=== PATIENT | male | born 1955 | race Caucasian/White ===

== ENCOUNTER → 2017-03-19 | Outpatient (CLI) | payer BC ==
[~2017-03-19] MED LIST: ATOR-22 PO; DLCSR120 PO; LISI-786 PO
[2017-03-19 12:46] LABS: ESTIMATED AVERAGE GLUCOSE 126 mg/dl; HA1C FLAG Normal (Normal)
[2017-03-19 12:51] LABS: ALT/SGPT 38 U/L (12-78); AST/SGOT 20 U/L (15-37); BLOOD UREA NITROGEN 20 mg/dl (7-18); BUN/CREATININE RATIO 24.4 (10-20); CALCIUM 9.4 mg/dl (8.5-10.1); CARBON DIOXIDE 23 mmol/L (21-32); CHLORIDE 110 mmol/L (98-107); GLUCOSE 107 mg/dl (70-99); MAGNESIUM 2.4 mg/dl (1.8-2.4); SODIUM 139 mmol/L (136-145)
[2017-03-19 13:02] LABS: ALKALINE PHOSPHATASE 50 U/L (45-117); PROSTATE SPECIFIC ANTIGEN 0.851 ng/ml (0.000-4.000)
== END | disposition home or self-care (01) ==
LOC: C.LABBFT 08:04
PROVIDERS: ATTEND Internal Medicine Cardiovascular Disease
DX: I10 Essential (primary) hypertension (principal); N40.0 Benign prostatic hyperplasia without lower urinary tract symptoms; R73.01 Impaired fasting glucose; E78.00 Pure hypercholesterolemia, unspecified; E78.5 Hyperlipidemia, unspecified

== ENCOUNTER 2020-03-17 01:38 | Inpatient (IN) ==
[2020-03-17] MEDS ORDERED: ASPIRIN CHEW 324 MG ONE (01:48)
[2020-03-17 02:28] LABS: Basophils # (auto) 0.03 K/uL (0-0.2); Basophils % (auto) 0.6 %; Eosinophils # (auto) 0.15 K/uL (0-0.5); Eosinophils % (auto) 2.8 %; Hematocrit (blood only) 41.6 % (42-52); Hemoglobin 13.9 g/dL (14.0-18.0); Immature Granulocytes # (auto) 0.01 K/uL (0.00-0.02); Immature Granulocytes % (auto) 0.2 %; Lymphocytes # (auto) 1.74 K/uL (1.2-3.4); Lymphocytes % (auto) 32.8 %; Mean Corpuscular Hgb Conc 33.4 g/dL (32-36); Mean Corpuscular Volume 89.8 fL (80-100); Mean Platelet Volume 9.6 fL (7.4-10.4); Monocytes # (auto) 0.64 K/uL (0.11-0.59); Monocytes % (auto) 12.1 %; Neutrophils # (auto) 2.74 K/uL (1.4-6.5); Neutrophils % (auto) 51.5 %; Platelet Count 165 K/uL (130-400); RDW Standard Deviation 45.8 fL (36.4-46.3); Red Blood Count 4.63 M/uL (4.7-6.1); White Blood Count 5.31 K/uL (4.8-10.8)
[2020-03-17 02:38] LABS: Partial Thromboplastin Time 26.9 Seconds (21.0-31.0); Prothrombin Time 10.9 Seconds (9.0-12.0)
[2020-03-17 02:47] LABS: Alanine Aminotransferase 44 U/L (12-78); Albumin Level 3.2 gm/dl (3.4-5.0); Aspartate Aminotransferase 32 U/L (15-37); BUN Creatinine Ratio 19.2 (10-20); Blood Urea Nitrogen 18 mg/dl (7-18); Calcium 8.4 mg/dl (8.5-10.1); Carbon Dioxide 24 mmol/L (21-32); Chloride 111 mmol/L (98-107); Creatinine Clr Calc Pharmacy 90.5 ml/min; Est GFR (African American) 98.8; Est GFR (Non-African American) 85.2; Glucose 203 mg/dl (70-99); Lipase 131 U/L (73-393); Potassium 3.4 mmol/L (3.5-5.1); Sodium 142 mmol/L (136-145)
[2020-03-17 02:59] LABS: Albumin Globulin Ratio 0.9 (0.9-2); Alkaline Phosphatase 57 U/L (45-117); Bilirubin,Total 0.7 mg/dl (0.2-1); Creatine Kinase MB 15.6 ng/ml (0.5-3.6); Globulin 3.7 gm/dl (2.5-4.0); Total Protein 6.9 gm/dl (6.4-8.2); Troponin I 0.969 ng/ml (0-0.045)
[2020-03-17] MEDS ORDERED: HEPARIN SOD 5,000 UNIT/0.5 ML VIAL ONE (03:31)
--- NOTE | 2020-03-17 03:39 | Emergency Department Note ---
History of Present Illness General Chief Complaint: Cardiac Assessment Stated Complaint: CHEST PAIN Time Seen by Provider: 03/17/20 01:50 Source: patient Mode of arrival: EMS Limitations: no limitations History of Present Illness Provider Complaint: chest pain Onset (ago): hour(s) 2 Time: 00:00 Duration: improved Onset: during exertion Pain Location: left chest Pain Radiation: LUE Severity: moderate Maximum Pain Intensity: 2 Current Pain Intensity: 2 Quality: + heaviness Relieved By: + nitroglycerin Exacerbated By: + exertion Treatments prior to arrival: aspirin and nitroglycerin 64-year-old male patient with significant past medical history of CAD s/p CABG 2 years ago ([facility]), HTN, melanoma, and macular degeneration presents to the emergency department today via ambulance for evaluation of chest pain. Patient states 2 hours prior to arrival, he was experiencing some chest tightness and heaviness. The pain was radiating into and down his left arm. The patient states he has been experiencing intermittent pain similar nature to this for the past several months, primarily with exertion and improves with rest. Patient states more recently, he is noticing that walking down the street to his son's house flares up the symptoms. He states he used to be able to walk 1 to 2 miles without any difficulty, but more recently has been unable to do this. The patient states this evening, he was watching TV and feeling fine. He got up to wash the dishes and during this exertion, began experiencing chest pressure and tightness radiating into his left arm. He tried going to bed, but the symptoms did not improve, prompting him to contact EMS. Patient denies any history of AZ, but was experiencing some pain and noted blockages 2-1/2 years ago leading to his CABG. He does follow with cardiology, Dr. Waller, but has not seen him in almost a year. The patient reports family history of AZ in his father who at 44 years old. He states he has 3 paternal uncles all had MIs in their 60s. The patient is uncertain of his mother's family history. The patient denies any tobacco use. He was given 3 doses of nitroglycerin and 324 mg aspirin by EMS prior to arrival and states his symptoms have almost completely resolved at this time. He denies any associated diaphoresis or dyspnea. There was no abdominal pain, nausea, vomiting. Home Medications Home Medications Medication Instructions Recorded Confirmed Type aspirin 81 mg chewable tablet 1 tab PO DAILY tab 04/13/19 03/17/20 History nitroglycerin 0.4 mg sublingual 0.4 mg SL Q5M PRN #30 tab 04/13/19 03/17/20 History tablet vitamins A,C,O-lhjb-ogsbab 14,320 1 cap PO BID 04/13/19 03/17/20 History unit-226 mg-200 unit capsule lisinopril 20 1 tab PO DAILY #90 tab 04/22/19 03/17/20 Rx mg-hydrochlorothiazide 12.5 mg tablet metoprolol succinate 50 mg 50 mg PO DAILY #90 tab 09/12/19 03/17/20 Rx tablet,extended release 24 hr atorvastatin 80 mg tablet 80 mg PO DAILY #90 tab 03/13/20 03/17/20 Rx Allergies Allergy/AdvReac Type Severity Reaction Status Date / Time No Known Allergies Allergy Verified 03/17/20 02:27 Past Med/Surg History Medical History Abnormal liver function test Atypical chest pain Enlarged prostate without lower urinary tract symptoms (luts) Hx of sciatica Surgical History (Updated 03/17/20 @ 05:09 by Shital Fenton PA-C) History of foot surgery bilateral History of herniorrhaphy "Bilateral" 1972 Hx of tonsillectomy Family History (Updated 11/18/19 @ 15:33 by Dennise Nunes) Father Acute myocardial infarction at age 44 Mother Coronary heart disease Diabetes Brother Hypertension Social History Smoking Status: Never smoker Hx Alcohol Use: No Hx Substance Use: No Preferred Language: Prydeinig Communication Ability: Effective Sample Room Supervisor Required: No Beliefs That Will Affect Care: None marital status: Current Living Situation: Spouse Other Information That Helps Us Care for You: No Feels Safe at Home: Yes Safety Concerns: Feels Safe At This Time Review of Systems A total of 10 systems reviewed and were otherwise negative Physical Exam Vital Signs Vital Signs - 24 hr 03/17/20 01:44 03/17/20 01:53 03/17/20 02:10 Temperature 36.8 C Temperature Source Oral Pulse Rate 85 Pulse Rate [Apical] Pulse Rhythm Regular Pulse Rhythm [Apical] Pulse Strength [Apical] Respiratory Rate 20 Respiratory Effort / Characteristics Non-Labored Respiratory Depth Normal Respiratory Pattern Blood Pressure 172/83 H Blood Pressure [Right Arm] Blood Pressure Mean 112 Blood Pressure Mean [Right Arm] Blood Pressure Position [Right Arm] Pulse Oximetry 93 93 92 Oxygen Delivery Method Room Air Room Air Room Air Sepsis Recent Fever Within 48 Hours No Sepsis New/Unexplained Change in Mental Status No Sepsis Action Taken by Nursing No Action Required 03/17/20 02:12 03/17/20 02:13 03/17/20 02:19 Temperature Temperature Source Pulse Rate Pulse Rate [Apical] 79 Pulse Rhythm Pulse Rhythm [Apical] Regular Pulse Strength [Apical] Respiratory Rate 18 Respiratory Effort / Characteristics Non-Labored Spontaneous Respiratory Depth Normal Respiratory Pattern Agonal Blood Pressure Blood Pressure [Right Arm] 167/97 H Blood Pressure Mean Blood Pressure Mean [Right Arm] 120 Blood Pressure Position [Right Arm] Sitting Pulse Oximetry 93 93 96 Oxygen Delivery Method Room Air Room Air Room Air Sepsis Recent Fever Within 48 Hours Sepsis New/Unexplained Change in Mental Status Sepsis Action Taken by Nursing 03/17/20 03:23 Temperature Temperature Source Pulse Rate Pulse Rate [Apical] 79 Pulse Rhythm Pulse Rhythm [Apical] Regular Pulse Strength [Apical] Normal Respiratory Rate 18 Respiratory Effort / Characteristics Non-Labored Spontaneous Respiratory Depth Normal Respiratory Pattern Regular Blood Pressure Blood Pressure [Right Arm] 135/61 Blood Pressure Mean Blood Pressure Mean [Right Arm] 85 Blood Pressure Position [Right Arm] Sitting Pulse Oximetry 94 Oxygen Delivery Method Room Air Sepsis Recent Fever Within 48 Hours Sepsis New/Unexplained Change in Mental Status Sepsis Action Taken by Nursing VITALS: Vitals are noted on the nurse's note and reviewed by myself. Patient is hypertensive. No tachycardia, tachypnea, hypoxia. The patient is afebrile. GENERAL: This is a 64-year-old white male, in no acute distress, nondiaphoretic, well-developed well-nourished. SKIN: The skin was without rashes, erythema, edema, or bruising. There is no tenting of the skin. Capillary refill less than 2 seconds. HEAD: Normocephalic atraumatic. EYES: Conjunctivae without injection, sclerae without icterus. NECK: Supple without nuchal rigidity. No lymphadenopathy. No thyromegaly. Cervical spine is nontender. No JVD. HEART: Regular rate and rhythm without murmurs gallops or rubs. LUNGS: Clear to auscultation bilaterally without wheezes, rales or rhonchi. No retractions or accessory muscle use. ABDOMEN: Positive bowel sounds x 4. Normal tympanic percussion. Soft, non tender, without masses or organomegaly. No guarding or rebound tenderness. MUSCULOSKELETAL: No muscle atrophy, erythema, or edema noted. Full range of motion without joint tenderness in all extremities. No tenderness to palpation. Normal gait. Strength 5/5 throughout. NEURO: Patient was alert and oriented to person place and time. Normal sensation to light and sharp touch. No focal neurological deficits. Course Course The patient was seen and evaluated as above. An order was placed for continuous cardiac monitoring. The monitor shows a normal sinus rhythm at a rate of 83 bpm. IV access obtained, labs drawn. Imaging performed and reviewed by myself as noted. Labs reviewed by myself. I discussed the findings with the patient at bedside. I discussed the case with my attending. She did see and evaluate the patient. Patient started on heparin drip with bolus. I discussed case with the crew manager. I discussed the case with Dr. Hutchinson, resident on [facility] service. She did see and evaluate the patient. Administered Medications Heparin Sodium/Dextrose (Heparin Sodium/Dextrose) 25,000 units in 500 mls @ 29 mls/hr IV .[id number] [facility]; Protocol Stop: 04/16/20 03:14 Last Admin: 03/17/20 03:43 Dose: 1,450 units/hr, 29 mls/hr Documented by: [id number] Cosigned by: [id number] Discontinued Medications Heparin Sodium (Porcine) (Heparin Sod 5,000 Unit/0.5 Ml Vial) Confirm Administered Dose 5,000 units .ROUTE .STK-MED ONE Stop: 03/17/20 03:32 Last Admin: 03/17/20 03:42 Dose: 5,000 units Documented by: [id number] Cosigned by: [id number] Heparin Sodium/Dextrose (Heparin Iv Standard With Bolus) 1 ea IV NOW STA; Protocol Stop: 03/17/20 03:12 Last Admin: 03/17/20 03:51 Dose: Not Given Documented by: [id number] Potassium Chloride (Potassium Chloride 10 Meq Tabcr) 10 meq PO NOW STA Stop: 03/17/20 04:17 Last Admin: 03/17/20 04:27 Dose: 10 meq Documented by: [id number] Medical Decision Making Differential Diagnosis + pneumothorax, + stable angina, + unstable angina pectoris, + atypical chest pain, + st elevation myocardial infarction, + costochondritis, + chest pain, + biliary colic, + cardiac ischemia, + myocarditis, + pericarditis, + pleurisy, + aortic dissection, + pulmonary embolism, + pneumonia, + musculoskeletal, + infections, + cholecystitis, + pancreatitis and + esophageal rupture Medical Records Attestation: I reviewed the patient's medical records. Home Medications Current Medication List: was personally reviewed by me Laboratory Data Attestation: I reviewed the patient's lab results. Lab results narrative: No leukocytosis, anemia, thrombocytopenia. Renal, hepatic function, and electrolytes without significant abnormality. Coags normal. Troponin elevated 0.969. CK-MB elevated 15.6. Lipase 131. Glucose elevated at 203. Result diagrams: 03/17/20 02:18 03/17/20 02:18 Labs: Lab Results 03/17/20 03/17/20 03/17/20 Range/Units 02:18 02:18 02:18 WBC 5.31 (4.8-10.8) K/uL RBC 4.63 L (4.7-6.1) M/uL Hgb 13.9 L (14.0-18.0) g/dL Hct 41.6 L (42-52) % MCV 89.8 (80-100) fL MCH 30.0 (25-34) pg MCHC 33.4 (32-36) g/dL RDW Std Deviation 45.8 (36.4-46.3) fL RDW Coeff of Meghan 14.0 (11.5-14.5) % Plt Count 165 (130-400) K/uL MPV 9.6 (7.4-10.4) fL Immature Gran % (Auto) 0.2 % Neut % (Auto) 51.5 % Lymph % (Auto) 32.8 % [place] % (Auto) 12.1 % Eos % (Auto) 2.8 % Baso % (Auto) 0.6 % Neut # (Auto) 2.74 (1.4-6.5) K/uL Lymph # (Auto) 1.74 (1.2-3.4) K/uL [place] # (Auto) 0.64 H (0.11-0.59) K/uL Eos # (Auto) 0.15 (0-0.5) K/uL Baso # (Auto) 0.03 (0-0.2) K/uL Immature Gran # (Auto) 0.01 (0.00-0.02) K/uL PT 10.9 (9.0-12.0) Seconds INR 1.0 (0.9-1.1) APTT 26.9 (21.0-31.0) Seconds PTT Ratio 1.0 Sodium 142 (136-145) mmol/L Potassium 3.4 L (3.5-5.1) mmol/L Chloride 111 H (98-107) mmol/L Carbon Dioxide 24 (21-32) mmol/L Anion Gap 7.0 (3-11) BUN 18 (7-18) mg/dl Creatinine 0.93 (0.6-1.4) mg/dl Est Cr Clr Drug Dosing 90.5 ml/min Est GFR ( Amer) 98.8 Est GFR (Non-Af Amer) 85.2 BUN/Creatinine Ratio 19.2 (10-20) Glucose 203 H (70-99) mg/dl Calcium 8.4 L (8.5-10.1) mg/dl Total Bilirubin 0.7 (0.2-1) mg/dl AST 32 (15-37) U/L ALT 44 (12-78) U/L Alkaline Phosphatase 57 (45-117) U/L CK-MB (CK-2) 15.6 H (0.5-3.6) ng/ml Troponin I 0.969 H* (0-0.045) ng/ml Total Protein 6.9 (6.4-8.2) gm/dl Albumin 3.2 L (3.4-5.0) gm/dl Globulin 3.7 (2.5-4.0) gm/dl Albumin/Globulin Ratio 0.9 (0.9-2) Lipase 131 (73-393) U/L Imaging Data Chest x-ray: Attestation: I personally reviewed and interpreted this imaging study as follows: My impression: Chest x-ray. Findings: A chest x-ray was performed and revealed no pneumothorax, effusion, infiltrate, pulmonary edema, free air under the diaphragm, or wide mediastinum. Sternotomy wires noted. ECG Data Attestation: I personally reviewed and interpreted this ECG as follows: Indication: chest pain Rate (beats per minute): 85 Rhythm: normal sinus Findings: + ST depression (Lateral); no T-wave inversion, no ST elevation and no ectopy Comparison ECG Date: no prior available Blood Pressure Blood Pressure Findings: Elevated blood pressure Blood Pressure Disposition: further management by hospitalist MDM Narrative This 64-year-old male patient with history of CAD s/p CABG presents the emergenc y department today for evaluation of chest pain. The pain began approximately 2 hours prior to arrival. He was given nitro spray x3 and 324 mg aspirin prior to arrival by EMS. The patient's pain had completely resolved upon arrival to the emergency department. Patient has been experiencing exertional chest pain for the past several months. He does follow with Dr. Waller locally. He has not spo ella with Dr. Waller regarding the exertional chest pain. Work-up here in the ED consistent with NSTEMI. Patient does have an elevated troponin as well as CK- MB. EKG with some ST depression consistent with ischemia in the lateral leads. The patient was medicated here in the ED with heparin. He will be admitted to the hospitalist service for ongoing management and care. Please see hospitalist dictation regarding ongoing management of this patient. The chart was completed utilizing [employer] Speech voice recognition software. Grammatical errors, random word insertions, pronoun errors, and incomplete sentences are an occasional consequence of this system due to software limitations, ambient noise, and hardware issues. Any formal questions or concerns about the content, text, or information contained within the body of this dictation should be directly addressed to the provider for clarification. Impression & Plan NSTEMI (non-ST elevated myocardial infarction), CAD (coronary artery disease), S/P CABG (coronary artery bypass graft), Chest pain Discharge Plan Visit Data Chief Complaint: Cardiac Assessment Stated Complaint: CHEST PAIN ED Provider: Marylin Gonzalez ED Midlevel Provider: Shital Fenton Discharge Problem: NSTEMI (non-ST elevated myocardial infarction), CAD (coronary artery disease), S/P CABG (coronary artery bypass graft), Chest pain Patient Disposition: Admitted As Inpatient Discharge Instructions Interventions: ED Discharge Assessment Last Done: 03/17/20 04:31
[2020-03-17] MEDS: HEPARIN SODIUM/DEXTROSE 25,000 UNITS/500 ML BAG IV SCH ×2 (03:43→23:45)
--- NOTE | 2020-03-17 03:51 | History & Physical Report ---
Date of Service March 17, 2020 Assessment & Plan (1) NSTEMI (non-ST elevated myocardial infarction): Mr. Feliz is a 64yo with a PMHx significant for CAD s/p CABG done at [facility] 2 years ago, HTN, melanoma and macular degeneration who was admitted with chest pain and elevated troponins. Atypical chest pain/NSTEMI -Pt describes a Hx of angina for the past few months -However, tonight chest pain would not resolve even with rest -EKG with evidence of ischemia in lateral leads -Troponins elevated to 0.969; will trend q6h -lipid panel, hgbA1c pending -Received 3 nitro sprays en route with pain down from 6 to 0 currently; continue Nitro-Bid 0.5 inches q6h scheduled -morphine IV 2mg q3h PRN for additional pain -received aspirin 324mg en route; continue aspirin 81mg daily -continue heparin drip -continue home metoprolol succinate 50mg -hold home lisinopril-HCTZ combo; continue with lisinopril 20mg daily -continue home atorvastatin 80mg -consult Cardiology -NPO Hypokalemia -replete as needed -holding HCTZ as above CAD -Hx of CABG in 2018 at [facility] after stress test showed blockages in 3 vessels -Follows with Dr. Waller of [facility] Cardiology -continue home metoprolol succinate 50mg, atorvastatin 80mg, aspirin 81m, and lisinopril 20mg here. HTN -hold home combo lisinopril-HCTZ -continue lisinopril 20mg with beta deon above (metoprolol succinate 50mg) Hx of melanoma -Pt with Hx of melanoma on his back -completely removed -follows with [facility] in the area Hx of macular degeneration -stable FEN/GI: NPO except essential meds in anticipation of cath procedure DVT prophylaxis: on heparin drip CODE STATUS: Full code, discussed with pt and Dispo: PCU/Tele DVT History of Present Illness Primary Care Provider: Yanira Martell MD Mr. Feliz is a 64yo with a PMHx significant for CAD s/p CABG done at [facility] 2 years ago, HTN, melanoma and macular degeneration who was admitted with chest pain and elevated troponins. Pt states that about midnight he was up doing dishes (admits he is retired so his schedule is a bit off) when he had the onset of 6/10 chest discomfort that radiated down his arms bilaterally. No associated SOB, N/V, or diaphoresis. He had been having similar symptoms during the day but they went away with rest. However, this time, he decided to go to bed hoping that would help with relieving the pain. However the pain persisted and he asked his to call [address] he received nitro sprays and aspirin which helped bring his pain down from a 6 to a 0 currently. He states that he has a Hx of CABG in 2018 at [facility] after he was having similar symptoms and his decorative engraver apprentice Dr. Waller sent him for a stress echo. The results of that sent him to [place] for a cath where it was discovered that he had blockages in 3 vessels requiring CABG. States he has never smoked, rarely uses alcohol. His father of an GA at age 44 and his uncles all had MIs later in their life as well. States his diet is not the best. admits that before custodial she rarely cooked and they mostly ate out. He has stopped exercising or walking since he started having anginal symptoms once more. States that while out for walks he would note tachycardia to 80s-90s on his apple watch, sometimes associated with the chest discomfort. EMS course: 3 nitro sprays, aspirin 324mg given. ED course: Heparin started Allergies Allergy/AdvReac Type Severity Reaction Status Date / Time No Known Allergies Allergy Verified 03/17/20 02:27 Home Medications Home Medications Medication Instructions Recorded Confirmed Type aspirin 81 mg chewable tablet 1 tab PO DAILY tab 04/13/19 03/17/20 History nitroglycerin 0.4 mg sublingual 0.4 mg SL Q5M PRN #30 tab 04/13/19 03/17/20 History tablet vitamins A,C,M-spkc-zfznke 14,320 1 cap PO BID 04/13/19 03/17/20 History unit-226 mg-200 unit capsule lisinopril 20 1 tab PO DAILY #90 tab 04/22/19 03/17/20 Rx mg-hydrochlorothiazide 12.5 mg tablet metoprolol succinate 50 mg 50 mg PO DAILY #90 tab 09/12/19 03/17/20 Rx tablet,extended release 24 hr atorvastatin 80 mg tablet 80 mg PO DAILY #90 tab 03/13/20 03/17/20 Rx Past Med/Surg History Medical History Abnormal liver function test Atypical chest pain CAD (coronary artery disease) Enlarged prostate without lower urinary tract symptoms (luts) Hx of sciatica Hypercholesterolemia Hypertension Osteoarthritis Surgical History (Updated 03/17/20 @ 13:54 by Abdoul Mcarthur MD) History of foot surgery bilateral History of herniorrhaphy "Bilateral" 1971 Hx of tonsillectomy S/P CABG (coronary artery bypass graft) 3 vessel Family History (Updated 11/18/19 @ 15:33 by Dennise Nunes) Father Acute myocardial infarction at age 44 Mother Coronary heart disease Diabetes Brother Hypertension Social History Smoking Status: Never smoker Hx Alcohol Use: No Hx Substance Use: No Preferred Language: Cameroonian Communication Ability: Effective Publication Distributor Required: No Beliefs That Will Affect Care: None marital status: Current Living Situation: Spouse Other Information That Helps Us Care for You: No Feels Safe at Home: Yes Safety Concerns: Feels Safe At This Time Review of Systems Constitutional: no fever, no chills and no sweats Eyes: no worsening vision Ear, Nose, Mouth, Throat: no nasal discharge and no sore throat Respiratory: no cough and no dyspnea Cardiovascular: + chest pain, + chest pain with activity and + radiating jaw, neck or arm pain; no palpitations, no edema and no calf pain Gastrointestinal: no abdominal pain, no nausea, no vomiting, no constipation, no diarrhea/loose stools and no blood in stools Musculoskeletal: no body aches Integumentary: no rash Neurologic: no tingling, no numbness, no headache(s) and no confusion Psychiatric: no confusion Physical Exam Physical Exam: General: Alert, oriented. No acute distress, laying in bed. Obese gentleman. Skin: Noted surgical scar on left shoulder Psych: Appropriate mood and affect Neuro: No gross deficits HEENT: NC/AT Chest: Nontender to palpation. CV: RRR, Normal s1, s2. No murmurs appreciated Resp: Breath sounds clear bilaterally, no increased effort of breathing. No crackles/rhonchi/rales. Abdomen: Soft, nontender, nondistended. No guarding. No organomegaly appreciated. Extremities: No edema in lower extremities bilaterally. Results & Data Results & Data ([facility]) Vital Signs (Past 12 Hours) Vital Signs Temp Pulse Pulse Resp BP BP Pulse Ox 03/17/20 03:23 79 18 135/61 94 03/17/20 02:19 79 18 167/97 H 96 03/17/20 02:13 93 03/17/20 02:12 93 03/17/20 02:10 92 03/17/20 01:53 93 03/17/20 01:44 36.8 C 85 20 172/83 H 93 Supervising Physician Co-Signing Physician Notes Attending addendum: I have physically seen this patient, have supervised the medical residents activities, and agree with the H&P unless as otherwise noted. Assessment and Plan: Non-STEMI/CAD/status post CABG/hypertension- The patient will be admitted to telemetry for serial cardiac enzymes, serial EKG's, cardiac rhythm monitoring and a 2-D echocardiogram with Dopplers. Continue aspirin 81 mg daily Continue heparin drip begun in the ED Continue metoprolol succinate 50 mg p.o. daily and lisinopril 20 mg p.o. daily Hold HCTZ for now. Optimize potassium with supplementation Consult cardiology Hyperlipidemia- Continue atorvastatin 80 mg daily Check a fasting lipid panel and hemoglobin A1c Remaining orders and notations as noted Resident Activity Tracking Resident Involvement: Resident Care Provided Care Provided: Adult [facility] Medicine
[2020-03-17] MEDS ORDERED: POTASSIUM CHLORIDE 10 MEQ TABCR PO STA (04:16)
[2020-03-17] MEDS ORDERED: MoRPHine SULFATE 2 MG/ML CARP IV PRN (04:48)
[2020-03-17] MEDS: NITROGLYCERIN 2% OINTMENT 30GM TUBE EXT SCH ×3 (05:14→19:27)
--- NOTE | 2020-03-17 05:14 | Emergency Department Note ---
ED Visit Note I have personally seen and evaluated the patient with the PA. I agree with the diagnosis and management decisions and have been personally involved in the case. Please see Shital Fenton PA-C's notes for further details of the history, physical and visit. . : CAD (coronary artery disease) Qualifiers: Coronary Disease-Associated Artery/Lesion type: bypass graft [place] vs. transplanted heart: [place] heart Associated angina: with unstable angina Qualified Code(s): I25.700 - Atherosclerosis of coronary artery bypass graft(s), unspecified, with unstable angina pectoris Chest pain Qualifiers: Chest pain type: unspecified Qualified Code(s): R07.9 - Chest pain, unspecified
[2020-03-17] MEDS: ATORVASTATIN 40 MG TAB PO SCH (07:47)
[2020-03-17] MEDS: lisinopriL 20 MG TAB PO SCH (07:48)
[2020-03-17] MEDS: ASPIRIN 81 MG ECTAB PO SCH (07:48)
--- NOTE | 2020-03-17 08:23 | XRay Report ---
XR chest 1V portable CLINICAL HISTORY: Atypical chest pain COMPARISON STUDY: 09/12/2011 FINDINGS: There are postsurgical changes of midline sternotomy. The heart is at the upper limits of n ormal in size. There is no failure. There is no focal pulmonary consolidation. No pleural effusions a re visualized.[ IMPRESSION: No active disease in the chest. ACT 112: Negative or not required by law. Electronically signed by: Skinny Chappell M.D. 03/17/2020 8:22 AM
[2020-03-17] MEDS ORDERED: METOPROLOL SUCC 50MG EXT REL TAB PO SCH (09:00)
[2020-03-17] MEDS ORDERED: PERFLUTREN LIPID MICROSPHERE (DEFINITY) IV ONE (09:16)
[2020-03-17 10:04] LABS: Partial Thromboplastin Ratio 2.9
[2020-03-17 11:24] LABS: Partial Thromboplastin Time 81.5 Seconds (21.0-31.0)
[2020-03-17] MEDS ORDERED: HEPARIN (PORCINE) 1000 UNIT/ML 10 ML (CATH LAB USE ONLY) ONE (11:32)
[2020-03-17] MEDS ORDERED: fentaNYL citrate 100 MCG/2 ML VIAL ONE (11:32)
[2020-03-17] MEDS ORDERED: NiCARDipine HCL INJ 2.5 MG/ML 10 ML AMP ONE (11:32)
[2020-03-17] MEDS ORDERED: NITROGLYCERIN/D5W 100MCG/ML 20ML SYR ONE (11:33)
[2020-03-17] MEDS ORDERED: MIDAZOLAM HCL 1 MG/ML 2ML VIAL ONE (11:33)
--- NOTE | 2020-03-17 11:52 | Pre Anesthesia Assessment ---
Date of Service March 17, 2020 Pre Sedation Assessment Vital Signs Temp Pulse Pulse Resp BP BP Pulse Ox 03/17/20 11:11 98.6 F 73 18 151/79 H 96 03/17/20 08:48 62 03/17/20 07:51 98.6 F 87 18 150/81 H 94 03/17/20 04:51 98.1 F 83 21 129/72 98 03/17/20 04:31 79 18 131/64 94 03/17/20 04:09 72 16 131/64 94 03/17/20 03:23 79 18 135/61 94 03/17/20 02:19 79 18 167/97 H 96 03/17/20 02:13 93 03/17/20 02:12 93 03/17/20 02:10 92 03/17/20 01:53 93 03/17/20 01:44 98.2 F 85 20 172/83 H 93 Cardiovascular RRR, no murmur, no edema Respiratory normal respiratory effort, lungs clear to auscultation Pre-Sedation Airway Assessment Smoking Status: Never smoker Hx Sleep Apnea: No Hx Difficult Intubation: No Short, Thick Neck: Yes Thyromental Distance: > or= 3.5 Finger Breadths Oral Cavity: + WNL Mallampati Class: III ASA: ASA3 Procedure Planning Contraindications for Sedation: none Current Medications Reviewed: Yes Notes The planned sedation has been discussed with the patient. Informed Consent was obtained. I have identified the patient, determined the appropriateness of sedation and have assessed the patient immediately prior to the procedure. All medicine(s) and interventions are by my order.
--- NOTE | 2020-03-17 11:57 | Cardiac Catheterization ---
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 Cardiac Status Clinical evaluation leading to the procedure CAD Presenation: Non STEMI Anginal Classification: CCS IV Heart Failure: No Cardiogenic Shock within 24 Hours: No Cardiac Arrest within 24 Hours: No Imaging Studies Past 6 Months: Yes Stress Studies Past 6 Months: No Diagnostic Physicians Name: Michael Garrison MD Status: Elective Closure Device Percutaneous Entry Location: Radial Closure Device: Radial Band Recommendations: Medical Therapy and/or Counseling Intraprocedure Events Significant Disection: No Perforation: No Cardiac Cath Procedure Full Procedure Date March 17, 2020 Pre-Procedure Diagnosis Pre-Procedure Diagnosis: Non STEMI AUC Score AUC Score: 8 Post-Procedure Diagnosis Post-Procedure Diagnosis: Severe CAD and Normal Intracardiac Pressures Procedure(s) Performed Procedure(s) Performed: Coronary Angiography, Left Heart Cath and Bypass Graft Angiography Web Communications Specialist Michael Garrison MD Tapper Balance Wheel Screw Hole(s) Viry Estimated Blood Loss Estimated Blood Loss: <25 Medication(s) Medication(s): Fentanyl, Heparin, Lidocaine 1%, Nicardipine, Nitroglycerin and Versed Summary of Findings Indication: High risk NSTEMI Access: 6 Fr slender left radial artery Catheters: ANDREA, JR4, JL3.5 Findings: LM -large caliber vessel, 90% heavily calcified distal left main prior to bifurcation LAD -100% mid occlusion after takeoff of first septal. Circumflex -retrograde takeoff, 95% ostial lesion with disease extending into mid segment across takeoff of OM1, OM 2. Medium caliber OM 2 with 50% proximal disease. RCA -large caliber, dominant, heavily calcified, subtotal earlymid RCA occlusion, 100% latemid RCA occlusion. RV branch fills via right to right collaterals. CARBONE to LADwidely patent. Mid to distal LAD after anastomosis small vessel with moderate diffuse disease. Gives off brisk epicardial collaterals to right PLB which retrofills into distal RCA. SVG to circumflexoccluded at the ostium SVG to PDAdiffuse 90% disease involving total length of vein graft with ТАТЬЯНА I-II flow LVEDP -12 Arterial Closure: TR band Summary: 1. Severe [place] multivessel coronary artery disease -90% heavily calcified distal left main 95% ostial to mid circumflex (acute culprit lesion) across takeoff of OM1, OM 2 100% mid RCA occlusion. 2. Widely patent CARBONE to LAD. Distal LAD with moderate diffuse disease and gives off brisk [id number] collaterals to RCA 3. SVG to circumflex occluded proximally 4. SVG to small PDA with diffuse 90+% and ТАТЬЯНА I flow 5. Normal intracardiac filling pressure Recommendations: Acute culprit lesion appears to be complex ostial to mid circumflex disease. Intervention would require stenting across multiple branches and likely involve atherectomy back into heavily calcified distal left main. Recommend trial of maximal medical management first. If refractory angina recommend referral to tertiary center for higher risk complex PCI. Return to PCU for continued monitoring Load with clopidogrel 300 mg Resume heparin infusion after TR band removal and continue for 48 hours Continue to titrate antianginal therapy Hemodynamics Rest Ao:: 126/67/87 Final Ao: 122/68/9 LV: 112 Recommendations Recommendations: Medical Therapy and/or Counseling Specimens Specimens: None Radiation Exposure (mGy) 2865 Contrast (mls) 110 Fluids (cc crystalloids) Fluids (cc crystalloids): 60 Drains Drains: None Anesthesia Moderate Procedural Complication(s) None Disposition PCU I attest to the content of the Intraoperative Record and any orders documented therein. Any exceptions are noted below. [facility] Card Cath Procedure Codes Cardiac Catheterization Procedure 1: Cardiovascular Cath Procedures: 63892 Coronaries & LHC (+/-LV) & Grafts/IM (arterial & venous) Moderate Sedation Procedure 1: Sedation/Anesthesia: 42958 Mod Sedation by the same physician;Init15 Min Child Age 5 & Up Procedure 2: Sedation/Anesthesia: 12392 Mod Sedation by the same physician; Ea [id number] Minutes PG Care Time/CCT Total # of Minutes Spent Total Time Spent with Patient: Total time spent is greater than 50% in coordination of care (as documented) at patient's floor/unit and/or counseling patient:
[2020-03-17] MEDS ORDERED: CLOPIDOGREL BISULFATE 300 MG TAB PO STA (13:08)
[2020-03-17] MEDS ORDERED: OR MISCELLANEOUS MED ONE (13:08)
--- NOTE | 2020-03-17 13:09 | Post Anesthesia Assessment ---
Date of Service March 17, 2020 Post Sedation Assessment Vital Signs Temp Pulse Pulse Resp BP BP Pulse Ox 03/17/20 11:11 98.6 F 73 18 151/79 H 96 03/17/20 08:48 62 03/17/20 07:51 98.6 F 87 18 150/81 H 94 03/17/20 04:51 98.1 F 83 21 129/72 98 03/17/20 04:31 79 18 131/64 94 03/17/20 04:09 72 16 131/64 94 03/17/20 03:23 79 18 135/61 94 03/17/20 02:19 79 18 167/97 H 96 03/17/20 02:13 93 03/17/20 02:12 93 03/17/20 02:10 92 03/17/20 01:53 93 03/17/20 01:44 98.2 F 85 20 172/83 H 93 Recovery Score Activity: Moves 4 extremities Respiration: Deep Breath/Cough Circulation: +/-20% PreAnes Value Consciousness: Fully Awake Oxygen Saturation: O2 needed for >90% Discharge Sedation Level of Care: Fast Track Phase II Post Sedation Plan On clinical assessment, the patient appears to have tolerated the sedation without complications. Patient is recovering as anticipated. Patient will continue to be monitored by nursing and may be discharged when sedation discharge criteria are met per below protocol. Upon Completions of procedure up to 15 minutes continue every 5 minute vital signs and the P.A.R. score; then discharge to a Phase I or Fast Track to Phase II per the following guidelines: * Discharge Patient to appropriate Phase II area if PAR is 8 or greater or return to pre- procedure baseline. The post - procedure orders will be as directed. * If PAR score is less than 8 or not return to pre-procedure baseline then patient will follow Phase I monitoring till PAR is reached for Phase II. The Phase I may be done in procedure room or may call to secure a Phase I area. * If naloxone or flumazenil are used for reversal, hold in Phase I for continued monitoring from when last reversal dose was given for a minimum of 60 minutes or longer pending the nurse and/or physician discretion of patient condition before discharge to Phase II. Please call the Sedation Physician to re-evaluate and complete post-note for discharge to Phase II area. Do NOT discharge from procedure sedation or Phase 1 until post- sedation evaluation note is complete by procedure /sedation MD Sedation Discharge Instructions to be given to the patient at discharge to home.
[2020-03-17] MEDS ORDERED: SODIUM CHLORIDE 0.9% 1000ML 1,000 ML IV SCH (13:15)
[2020-03-17] MEDS ORDERED: METOPROLOL SUCC 50MG EXT REL TAB PO ONE (13:58)
--- NOTE | 2020-03-17 14:05 | Cardiology Consultation ---
Date of Consultation March 17, 2020 Assessment & Plan (1) NSTEMI (non-ST elevated myocardial infarction): (2) CAD (coronary artery disease): (3) S/P CABG (coronary artery bypass graft): (4) Hypertension: (5) Hypercholesterolemia: ASSESSMENT/PLAN: 1. NSTEMI: Continues to have very mild angina. Recommended urgent cardiac catheterization as chest discomfort has been constant since presentation. Risks and benefits were discussed with him in detail. Apparently, before are visitation together, he apparently had mentioned to Dr. Albarran of the hospitalist service that he wished to have cardiac catheterization done at [place]. We discussed this as well. Because he is having ongoing symptoms, recommended urgent evaluation. Risks and benefits were discussed with him in detail, and he was made aware that CT surgery is not available at this facility. He has chosen to remain here and undergo cardiac catheterization. His was at the bedside with him. Dr. Garrison of Interventional Cardiology was contacted and we discussed patient care. Continue aspirin 81 mg daily. Continue heparin drip. Initiate Plavix 75 mg daily. Continue beta-deon. Continue high- intensity statin therapy. Cardiac catheterization was completed, demonstrating: LM -large caliber vessel, 90% heavily calcified distal left main prior to bifurcation LAD -100% mid occlusion after takeoff of first septal. Circumflex -retrograde takeoff, 95% ostial lesion with disease extending into mid segment across takeoff of OM1, OM 2. Medium caliber OM 2 with 50% proximal disease. RCA -large caliber, dominant, heavily calcified, subtotal earlymid RCA occlusion, 100% latemid RCA occlusion. RV branch fills via right to right collaterals. CARBONE to LADwidely patent. Mid to distal LAD after anastomosis small vessel with moderate diffuse disease. Gives off brisk epicardial collaterals to right PLB which retrofills into distal RCA. SVG to circumflexoccluded at the ostium SVG to PDAdiffuse 90% disease involving total length of vein graft with ТАТЬЯНА I-II flow Medical therapy was recommended and if failed, could consider high risk PCI of LMCA and Cx, with likely atherectomy of the left main. Will increase metoprolol succinate to 100 mg daily while giving an additional dose now. Continue nitrate therapy. Could also consider calcium channel deon therapy. Recommend continuing heparin drip for 48 hours. 2. CAD s/p CABG: Plan as above. Continue dual anti-platelet therapy. Titrate beta-deon. Continue high-intensity statin therapy. Continue nitrate therapy. 3. Hypertension: Blood pressure was elevated this morning. Titrating beta- deon. 4. Dyslipidemia: Continue high-intensity statin therapy. 5. Disposition: Cardiology will continue to follow. Recommend cardiac rehab on discharge. Follow up with his primary marine underwriter, Dr. Waller, would discharged home. Patient care discussed with Dr. Albarran of the primary hospitalist service. Thank you for allowing me to participate in the care of your patient. Please call for any other questions or concerns. Sincerely, Brayan Mcarthur M.D. History of Present Illness Reason for Consultation: NSTEMI Requesting Physician: Janki Hutchinson Attending Physician: Horacio Albarran MD History of Present Illness Mr. Feliz is a pleasant 64-year-old gentleman with a history significant for CAD s/p CABG x 3 (CARBONE to LAD; SVG to Cx OM; SVG to PDA) in 2018 at [facility], hypertension, and dyslipidemia. His primary marine underwriter is Dr. Waller. For the past few months, he has been experiencing exertional chest discomfort described as a tightness. It resolved with rest but has been accelerating over time with less exertion. Early this morning, at approximately 12:00 a.m., he was washing the dishes and developed tightness across his chest to bilateral shoulders and down his left arm. He lay down but the symptoms did not resolve and he called EMS. Initially the pain was 7/10 and by the time EMS arrived, it was 3/10. They gave him nitroglycerin spray x3 and the pain further improved to approximately 1 to 2/10. The pain has never completely resolved but still lingers as a mild ache or numbness. He denies shortness of breath or diaphoresis. He denies melena, hematochezia, hematuria, fevers, chills, abdominal pain, nausea, vomiting, palpitations, syncope, or near-syncope. When I entered the room earlier this morning, nursing staff had just completed another ECG due to chest discomfort. His initial ECG demonstrated ST depression in the lateral leads and throughout the precordium. Since then, repeat ECGs have demonstrated improvement of the ST depression, including the ECG done just prior to my entering of the room. His was present at the bedside. Review of systems: As above. Review of systems otherwise negative/unremarkable. Family history: Father at the age of 44 from [place]. Mother had CAD. Social history: Denies tobacco, alcohol, or drug abuse. He lives at home with his , Cristin, they have 3 sons. He has grandchildren. 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 Allergies Allergy/AdvReac Type Severity Reaction Status Date / Time No Known Allergies Allergy Verified 03/17/20 02:27 Home Medications Home Medications Medication Instructions Recorded Confirmed Type aspirin 81 mg chewable tablet 1 tab PO DAILY tab 04/13/19 03/17/20 History nitroglycerin 0.4 mg sublingual 0.4 mg SL Q5M PRN #30 tab 04/13/19 03/17/20 History tablet vitamins A,C,U-bklx-uparxq 14,320 1 cap PO BID 04/13/19 03/17/20 History unit-226 mg-200 unit capsule lisinopril 20 1 tab PO DAILY #90 tab 04/22/19 03/17/20 Rx mg-hydrochlorothiazide 12.5 mg tablet metoprolol succinate 50 mg 50 mg PO DAILY #90 tab 09/12/19 03/17/20 Rx tablet,extended release 24 hr atorvastatin 80 mg tablet 80 mg PO DAILY #90 tab 03/13/20 03/17/20 Rx Patient History Medical History Abnormal liver function test Atypical chest pain CAD (coronary artery disease) Enlarged prostate without lower urinary tract symptoms (luts) Hx of sciatica Hypercholesterolemia Hypertension Osteoarthritis Surgical History (Updated 03/17/20 @ 13:54 by Abdoul Mcarthur MD) History of foot surgery bilateral History of herniorrhaphy "Bilateral" 1971 Hx of tonsillectomy S/P CABG (coronary artery bypass graft) 3 vessel Family History (Updated 11/18/19 @ 15:33 by Dennise Nunes) Father Acute myocardial infarction at age 44 Mother Coronary heart disease Diabetes Brother Hypertension Social History Smoking Status: Never smoker Hx Alcohol Use: No Hx Substance Use: No Preferred Language: Kazakh Communication Ability: Effective Lamp Assembler Required: No Beliefs That Will Affect Care: None marital status: Current Living Situation: Spouse Other Information That Helps Us Care for You: No Feels Safe at Home: Yes Safety Concerns: Feels Safe At This Time Physical Exam Physical Exam: Gen.: No acute distress. Alert and oriented. HEENT: Anicteric sclera. Neck: No JVD. No bruits. Normal carotid upstrokes bilaterally. Cardiac: PMI was nondisplaced. No ventricular heave. Regular rate and rhythm. Normal S1-S2. No murmurs, rubs, or gallops. Pulmonary: Clear to auscultation bilaterally without wheezes, rales, or rhonchi. Abdomen: Soft, nontender, nondistended, with normoactive bowel sounds. No bruits noted. Extremities: 2+ radial pulses bilaterally. 2+ posterior tibialis pulses bilaterally. Trace bilateral lower extremity edema, left greater than right (s/p left lower extremity vein harvest ). No cyanosis. Psychiatric: Affect appears appropriate. Chest: Nontender to palpation. Results & Data ([facility]) Vital Signs (Past 12 Hours) Vital Signs Temp Pulse Pulse Resp BP BP Pulse Ox 03/17/20 11:11 37.0 C 73 18 151/79 H 96 03/17/20 08:48 62 03/17/20 07:51 37.0 C 87 18 150/81 H 94 03/17/20 04:51 36.7 C 83 21 129/72 98 03/17/20 04:31 79 18 131/64 94 03/17/20 04:09 72 16 131/64 94 03/17/20 03:23 79 18 135/61 94 03/17/20 02:19 79 18 167/97 H 96 03/17/20 02:13 93 03/17/20 02:12 93 03/17/20 02:10 92 03/17/20 01:53 93 Laboratory Results Laboratory Results - last 24 hr 03/17/20 03/17/20 03/17/20 02:18 02:18 02:18 WBC 5.31 RBC 4.63 L Hgb 13.9 L Hct 41.6 L MCV 89.8 MCH 30.0 MCHC 33.4 RDW Std Deviation 45.8 RDW Coeff of Meghan 14.0 Plt Count 165 MPV 9.6 Immature Gran % (Auto) 0.2 Neut % (Auto) 51.5 Lymph % (Auto) 32.8 Perkins % (Auto) 12.1 Eos % (Auto) 2.8 Baso % (Auto) 0.6 Neut # (Auto) 2.74 Lymph # (Auto) 1.74 Perkins # (Auto) 0.64 H Eos # (Auto) 0.15 Baso # (Auto) 0.03 Immature Gran # (Auto) 0.01 PT 10.9 INR 1.0 APTT 26.9 PTT Ratio 1.0 Sodium 142 Potassium 3.4 L Chloride 111 H Carbon Dioxide 24 Anion Gap 7.0 BUN 18 Creatinine 0.93 Est Cr Clr Drug Dosing 90.5 Est GFR ( Amer) 98.8 Est GFR (Non-Af Amer) 85.2 BUN/Creatinine Ratio 19.2 Glucose 203 H Calcium 8.4 L Total Bilirubin 0.7 AST 32 ALT 44 Alkaline Phosphatase 57 CK-MB (CK-2) 15.6 H Troponin I 0.969 H* Total Protein 6.9 Albumin 3.2 L Globulin 3.7 Albumin/Globulin Ratio 0.9 Lipase 131 Hepatitis C Ab Screen 03/17/20 03/17/20 03/17/20 08:14 08:14 09:29 WBC RBC Hgb Hct MCV MCH MCHC RDW Std Deviation RDW Coeff of Meghan Plt Count MPV Immature Gran % (Auto) Neut % (Auto) Lymph % (Auto) Perkins % (Auto) Eos % (Auto) Baso % (Auto) Neut # (Auto) Lymph # (Auto) Perkins # (Auto) Eos # (Auto) Baso # (Auto) Immature Gran # (Auto) PT INR APTT 81.5 H* PTT Ratio 2.9 Sodium Potassium Chloride Carbon Dioxide Anion Gap BUN Creatinine Est Cr Clr Drug Dosing Est GFR ( Amer) Est GFR (Non-Af Amer) BUN/Creatinine Ratio Glucose Calcium Total Bilirubin AST ALT Alkaline Phosphatase CK-MB (CK-2) Troponin I 14.400 H* Total Protein Albumin Globulin Albumin/Globulin Ratio Lipase Hepatitis C Ab Screen Neg Diagnostic Findings Echo from 03/17/2020 personally reviewed: Preliminary review demonstrated normal LV systolic function. Formal review to follow. Telemetry personally reviewed: Sinus rhythm. No arrhythmia. Chest x-ray 03/17/2020: No active disease per Radiology. ECGs personally reviewed: ECG 03/17/2020 at 1:42 a.m.: Sinus rhythm [address] depression in the lateral and anterior leads. ST depression inferior leads. ECG 03/17/2020 at 9:33 a.m.: Sinus rhythm [address]/T-wave abnormality. ECG 03/17/2020 10:41 a.m.: Sinus rhythm [address]/T-wave abnormality involving the lateral leads. Medications Administered Current Inpatient Medications Aspirin (Aspirin 81 Mg Ectab) 81 mg PO DAILY [facility] Stop: 04/16/20 08:59 Last Admin: 03/17/20 07:48 Dose: 81 mg Documented by: Atorvastatin Calcium (Atorvastatin 40 Mg Tab) 80 mg PO DAILY [facility] Stop: 04/16/20 08:59 Last Admin: 03/17/20 07:47 Dose: 80 mg Documented by: Clopidogrel Bisulfate (Clopidogrel Bisulfate 75 Mg Tab) 75 mg PO QAM [facility] Stop: 04/17/20 08:59 Heparin Sodium/Dextrose (Heparin Sodium/Dextrose) 25,000 units in 500 mls @ 0 mls/hr IV .Q0M [facility]; Protocol Stop: 04/16/20 03:14 Last Titration: 03/17/20 11:26 Dose: 0 units/hr, 0 mls/hr Documented by: Sodium Chloride (Nss 1000ml) 1,000 mls @ 100 mls/hr IV .Q10H [facility] Stop: 03/17/20 18:14 Lisinopril (Lisinopril 20 Mg Tab) 20 mg PO QAM [facility] Stop: 04/16/20 08:59 Last Admin: 03/17/20 07:48 Dose: 20 mg Documented by: Metoprolol Succinate (Metoprolol Succ 50mg Ext Rel Tab) 50 mg PO DAILY [facility] Stop: 04/16/20 08:59 Last Admin: 03/17/20 07:47 Dose: 50 mg Documented by: Miscellaneous (Resume Heparin Drip: Pending Order) 1 ea N/A TODAY@1530 [facility] Stop: 03/17/20 15:31 Morphine Sulfate (Morphine Sulfate 2 Mg/Ml Carp) 2 mg IV Q3H PRN PRN Reason: Pain Stop: 03/31/20 04:47 Nitroglycerin (Nitroglycerin 2% Ointment 30gm Tube) 0.5 inch EXT Q6H [facility] Stop: 04/16/20 04:59 Last Admin: 03/17/20 05:14 Dose: 0.5 inch Documented by: PG Care Time/CCT Total # of Minutes Spent Total Time Spent with Patient: Total time spent is greater than 50% in coordination of care (as documented) at patient's floor/unit and/or counseling patient: Coding Level of Care Code 21390 Initial Inpt Care Lvl 3 Diagnoses NSTEMI (non-ST elevated myocardial infarction) I21.4 CAD (coronary artery disease) I25.700 Associated angina: with unstable angina Coronary Disease-Associated Artery/Lesion type: bypass graft [place] vs. transplanted heart: [place] heart S/P CABG (coronary artery bypass graft) Z95.1 Hypertension I10 Hypercholesterolemia E78.00 (1) CAD (coronary artery disease) Associated angina: with unstable angina Coronary Disease-Associated Artery/Lesion type: bypass graft [place] vs. transplanted heart: [place] heart Qualified Code(s): I25.700 - Atherosclerosis of coronary artery bypass graft(s), unspecified, with unstable angina pectoris
[2020-03-17] MEDS ORDERED: Nursing to Pharmacy Communication SCH ×2 (14:45→20:00)
--- NOTE | 2020-03-17 14:50 | XCELERA ---
[id number]
--- NOTE | 2020-03-17 15:11 | Hospitalist Progress Note ---
Date of Service March 17, 2020 Assessment & Plan (1) NSTEMI (non-ST elevated myocardial infarction): Mr. Feliz is a 64yo with a PMHx significant for CAD s/p CABG done at [facility] 2 years ago, HTN, melanoma and macular degeneration who was admitted with chest pain and elevated troponins. Atypical chest pain/NSTEMI -Pt describes a Hx of angina for the past few months -EKG with evidence of ischemia in lateral leads -Troponins elevated to 0.969 -> -lipid panel, hgbA1c pending Cardiac catheterization was completed,03/17/20 demonstrating: LM -large caliber vessel, 90% heavily calcified distal left main prior to bifurcation LAD -100% mid occlusion after takeoff of first septal. Circumflex -retrograde takeoff, 95% ostial lesion with disease extending into mid segment across takeoff of OM1, OM 2. Medium caliber OM 2 with 50% proximal disease. RCA -large caliber, dominant, heavily calcified, subtotal earlymid RCA occlusion, 100% latemid RCA occlusion. RV branch fills via right to right collaterals. CARBONE to LADwidely patent. Mid to distal LAD after anastomosis small vessel with moderate diffuse disease. Gives off brisk epicardial collaterals to right PLB which retrofills into distal RCA. SVG to circumflexoccluded at the ostium SVG to PDAdiffuse 90% disease involving total length of vein graft with ТАТЬЯНА I-II flow Medical therapy was recommended and if failed, could consider high risk PCI of LMCA and Cx, with likely atherectomy of the left main. recommend metoprolol succinate to 100 mg daily while giving an additional dose now. Continue nitrate therapy. Could also consider calcium channel deon therapy. Recommend continuing heparin drip for 48 hours. Hypokalemia -replete as needed -holding HCTZ as above CAD -Hx of CABG in 2018 at [facility] after stress test showed blockages in 3 vessels -continue home metoprolol succinate increased to 100mg, atorvastatin 80mg, aspirin 81m, and lisinopril 20mg here. HTN -lisinopril -continue lisinopril 20mg with beta deon above (metoprolol succinate 50mg) Hx of melanoma -Pt with Hx of melanoma on his back -completely removed -follows with [facility] in the area Hx of macular degeneration -stable DVT prophylaxis: on heparin drip CODE STATUS: Full code, discussed with pt and (2) CAD (coronary artery disease): (3) S/P CABG (coronary artery bypass graft): (4) Hypertension: (5) Hypercholesterolemia: Admission and Anticipated Discharge Date Admission Date: March 17, 2020 Subjective Patient was seen in the morning in the presence of his still having vague chest discomfort. I was notified that his troponin is gone from 0.9-14. I immediately called Dr. Mcarthur. A repeat EKG showed actually some improvement of the diffuse ST depressions have seen most notably laterally. Dr. Mcarthur evaluate the patient because of his persistent chest pain associate with a rising troponin he was taken emergently for cardiac catheterization. Unfortunately his cardiac catheterization revealed multivessel disease including failing saphenous vein grafts with calcified ostial lesions. At that time it was not felt he was amenable to intervention. After prolonged discussion with the family and cardiology medical management was agreed upon however the patient does deteriorate there could be consideration for urgent transfer Review of Systems Review of Systems: Mild distress and fatigue no headache, blurry or double vision no speech or swallowing issues Vague persistent chest discomfort, not described as pressure or palpitations no shortness of breath, cough or wheezes no abdominal pain, nausea or vomiting, diarrhea or constipation no dysuria, hematuria or frequency no focal joint pain or swelling no back pain, CVA tenderness or radicular pain no bruising, bleeding or rashes no focal signs of weakness or numbness or altered sensation no complaints or anxiety or depression. Physical Exam Physical Exam: The patient appeared well nourished and normally developed. Vital signs as documented. Head exam is normocephalic atraumatic no scleral icterus Neck is without JVD, thyromegaly, or carotid bruits. Lungs are clear to auscultation, no focal loss of breath sounds Cardiac exam, Rhythm is regular.. No murmurs, rubs or gallops. Abdominal exam reveals normal bowel sounds, soft non tender, no masses Extremities are nonedematous and both pedal pulses are normal. Neurologic exam is alert and oriented, no focal loss of strength or sensation Skin is without bruises or rashes Psychologically is without concerns for anxiety or depression Results & Data Results & Data ([facility]) Vital Signs (Past 12 Hours) Vital Signs Temp Pulse Pulse Resp BP BP Pulse Ox 03/17/20 14:51 98.6 F 85 18 130/72 98 03/17/20 14:40 98.6 F 85 72 18 130/72 97 03/17/20 14:25 98.2 F 68 67 18 128/73 97 03/17/20 14:10 98.6 F 63 18 122/75 96 03/17/20 13:36 98.4 F 61 18 120/78 98 03/17/20 13:21 98.6 F 62 20 118/82 98 03/17/20 13:06 98.2 F 66 18 116/77 98 03/17/20 11:11 98.6 F 73 18 151/79 H 96 03/17/20 08:48 62 03/17/20 07:51 98.6 F 87 18 150/81 H 94 03/17/20 04:51 98.1 F 83 21 129/72 98 03/17/20 04:31 79 18 131/64 94 03/17/20 04:09 72 16 131/64 94 03/17/20 03:23 79 18 135/61 94 PG Care Time/CCT Total # of Minutes Spent Total Time Spent with Patient: Total time spent is greater than 50% in coordination of care (as documented) at patient's floor/unit and/or counseling patient: Coding Level of Care Code 03928 Subseq Hosp Care Lvl 3 Diagnoses NSTEMI (non-ST elevated myocardial infarction) I21.4 CAD (coronary artery disease) I25.700 Associated angina: with unstable angina Coronary Disease-Associated Artery/Lesion type: bypass graft [place] vs. transplanted heart: [place] heart S/P CABG (coronary artery bypass graft) Z95.1 Hypertension I10 Hypercholesterolemia E78.00 (1) CAD (coronary artery disease) Associated angina: with unstable angina Coronary Disease-Associated Artery/Lesion type: bypass graft [place] vs. transplanted heart: [place] heart Qualified Code(s): I25.700 - Atherosclerosis of coronary artery bypass graft(s), unspecified, with unstable angina pectoris
[2020-03-17] MEDS ORDERED: MAGNESIUM SULFATE / D5W 1 GM/100 ML BAG IV ONE (19:30)
[2020-03-17 23:02] LABS: Partial Thromboplastin Ratio 1.6; Partial Thromboplastin Time 44.7 Seconds (21.0-31.0)
[2020-03-17] MEDS ORDERED: HEPARIN IV BOLUS 3,000 UNITS in SYRINGE 0 ML IV ONE (23:30)
--- NOTE | 2020-03-18 00:44 | Billing Data ---
Date of Service March 18, 2020 Coding Level of Care Code 18239 Initial Inpt Care Lvl 3
[2020-03-18] MEDS: NITROGLYCERIN 2% OINTMENT 30GM TUBE EXT SCH ×2 (01:47→01:55)
[2020-03-18 05:56] LABS: Basophils # (auto) 0.02 K/uL (0-0.2); Basophils % (auto) 0.2 %; Eosinophils # (auto) 0.14 K/uL (0-0.5); Eosinophils % (auto) 1.6 %; Hemoglobin 13.9 g/dL (14.0-18.0); Immature Granulocytes # (auto) 0.02 K/uL (0.00-0.02); Immature Granulocytes % (auto) 0.2 %; Lymphocytes # (auto) 2.86 K/uL (1.2-3.4); Lymphocytes % (auto) 32.6 %; Mean Corpuscular Hemoglobin 30.3 pg (25-34); Mean Corpuscular Hgb Conc 33.9 g/dL (32-36); Mean Corpuscular Volume 89.5 fL (80-100); Mean Platelet Volume 9.3 fL (7.4-10.4); Monocytes # (auto) 1.16 K/uL (0.11-0.59); Monocytes % (auto) 13.2 %; Neutrophils # (auto) 4.56 K/uL (1.4-6.5); Neutrophils % (auto) 52.2 %; Platelet Count 146 K/uL (130-400); RDW Coefficient of Variation 14.2 % (11.5-14.5); RDW Standard Deviation 46.1 fL (36.4-46.3); Red Blood Count 4.58 M/uL (4.7-6.1); White Blood Count 8.76 K/uL (4.8-10.8)
[2020-03-18 06:09] LABS: Partial Thromboplastin Ratio 2.4
[2020-03-18 06:11] LABS: Partial Thromboplastin Time 66.9 Seconds (21.0-31.0)
[2020-03-18 06:13] LABS: Calcium 8.3 mg/dl (8.5-10.1); Est GFR (African American) 109.6; Est GFR (Non-African American) 94.6; Potassium 3.8 mmol/L (3.5-5.1)
[2020-03-18] MEDS: ISOSORBIDE MONO EXTENDED REL 30 MG TABCR PO SCH (08:26)
[2020-03-18] MEDS: ASPIRIN 81 MG ECTAB PO SCH (08:27)
[2020-03-18] MEDS: METOPROLOL SUCC 50MG EXT REL TAB PO SCH (08:27)
[2020-03-18] MEDS: ATORVASTATIN 40 MG TAB PO SCH (08:27)
[2020-03-18] MEDS: lisinopriL 20 MG TAB PO SCH (08:27)
[2020-03-18] MEDS: CLOPIDOGREL BISULFATE 75 MG TAB PO SCH (08:27)
[2020-03-18] MEDS ORDERED: lisinopriL 10 MG TAB PO STA (09:20)
--- NOTE | 2020-03-18 11:56 | Cardiology Progress Note ---
Date of Service March 18, 2020 Assessment & Plan (1) NSTEMI (non-ST elevated myocardial infarction): (2) CAD (coronary artery disease): (3) S/P CABG (coronary artery bypass graft): (4) Hypertension: (5) Paroxysmal ventricular tachycardia: (6) Hypercholesterolemia: ASSESSMENT/PLAN: 1. NSTEMI: angina has resolved with medical therapy. Continue aspirin 81 mg daily indefinitely. Continue Plavix 75 mg daily for at least 1 year as part of aggressive medical therapy. Metoprolol has been titrated and can be further titrated if necessary. continue NICOLE-inhibitor. Continue nitrate therapy. Continue high-intensity statin therapy. Heparin drip for 48 hours from onset. Medical therapy was recommended and if failed, could consider high risk PCI of LMCA and Cx, with likely atherectomy of the left main. 2. CAD s/p CABG: Plan as above. Continue dual anti-platelet therapy. Continue beta-deon and NICOLE-inhibitor. Continue high-intensity statin therapy. Continue nitrate therapy. Cardiac rehabilitation recommended. 3. Hypertension: Blood pressure remains hypertensive. Lisinopril increased to 30 mg daily today. Continue beta-deon. 4. Dyslipidemia: Continue high-intensity statin therapy. 5. Ventricular tachycardia: Nonsustained ventricular tachycardia is not unusual within 48 hours of myocardial infarction. Continue higher dose of beta-deon. Continue monitor. 6. Disposition: Cardiology will continue to follow. Recommend cardiac rehab on discharge; he is agreeable. Follow up with his primary lyft driver, Dr. Waller, when discharged home. Patient care discussed with Dr. Albarran of the primary hospitalist service. Admission and Anticipated Discharge Date Admission Date: March 17, 2020 Subjective He feels much better today. Angina has completely resolved. He denies shortness of breath, syncope, near-syncope, palpitations, edema, or issues with his left radial catheterization site. He ambulated in the hallways yesterday with his and states that he tolerated well. Review of systems: As above. Physical Exam Physical Exam: Gen.: No acute distress. Alert and oriented. HEENT: Anicteric sclera. Neck: No JVD. Cardiac: No ventricular heave. Regular rate and rhythm. Normal S1-S2. No murmurs, rubs, or gallops. Pulmonary: Clear to auscultation bilaterally without wheezes, rales, or rhonchi. Abdomen: Soft, nontender, nondistended, with normoactive bowel sounds. No bruits noted. Extremities: 2+ radial pulses bilaterally. Left radial catheterization site is clean, dry, and intact without erythema or discharge. 2+ posterior tibialis pulses bilaterally. Trace left lower extremity edema. (s/p left lower extremity vein harvest ). No cyanosis. Psychiatric: Affect appears appropriate. Results & Data ([facility]) Vital Signs (Past 12 Hours) Vital Signs Temp Pulse Pulse Resp BP Pulse Ox 03/18/20 08:53 65 03/18/20 07:13 36.8 C 78 18 165/85 H 96 03/18/20 03:45 37.0 C 76 18 156/85 H 96 Intake & Output 03/16/20 03/17/20 03/18/20 03/19/20 06:59 06:59 06:59 06:59 Intake Total 92.8 / 92.8 2033.367 / 2033.367 Output Total 601 / 601 Balance 92.8 / 92.8 1432.367 / 1432.367 Weight 120.9 kg 118.8 kg Laboratory Results Laboratory Results - last 24 hr 03/17/20 03/17/20 03/18/20 13:53 22:29 05:39 WBC RBC Hgb Hct MCV MCH MCHC RDW Std Deviation RDW Coeff of Meghan Plt Count MPV Immature Gran % (Auto) Neut % (Auto) Lymph % (Auto) [place] % (Auto) Eos % (Auto) Baso % (Auto) Neut # (Auto) Lymph # (Auto) [place] # (Auto) Eos # (Auto) Baso # (Auto) Immature Gran # (Auto) APTT 44.7 H 66.9 H* PTT Ratio 1.6 2.4 Sodium Potassium Chloride Carbon Dioxide Anion Gap BUN Creatinine Est Cr Clr Drug Dosing Est GFR ( Amer) Est GFR (Non-Af Amer) BUN/Creatinine Ratio Glucose Estimat Average Glucose Hemoglobin A1c Calcium Troponin I 16.400 H* Triglycerides Cholesterol LDL Cholesterol, Calc VLDL Cholesterol, Calc HDL Cholesterol Cholesterol/HDL Ratio 03/18/20 03/18/20 03/18/20 05:39 05:39 05:39 WBC 8.76 RBC 4.58 L Hgb 13.9 L Hct 41.0 L MCV 89.5 MCH 30.3 MCHC 33.9 RDW Std Deviation 46.1 RDW Coeff of Meghan 14.2 Plt Count 146 MPV 9.3 Immature Gran % (Auto) 0.2 Neut % (Auto) 52.2 Lymph % (Auto) 32.6 [place] % (Auto) 13.2 Eos % (Auto) 1.6 Baso % (Auto) 0.2 Neut # (Auto) 4.56 Lymph # (Auto) 2.86 [place] # (Auto) 1.16 H Eos # (Auto) 0.14 Baso # (Auto) 0.02 Immature Gran # (Auto) 0.02 APTT PTT Ratio Sodium 141 Potassium 3.8 Chloride 111 H Carbon Dioxide 24 Anion Gap 6.0 BUN 14 Creatinine 0.77 Est Cr Clr Drug Dosing 120.0 Est GFR ( Amer) 109.6 Est GFR (Non-Af Amer) 94.6 BUN/Creatinine Ratio 18.0 Glucose 105 H Estimat Average Glucose Pending Hemoglobin A1c Pending Calcium 8.3 L Troponin I Triglycerides 111 Cholesterol 109 LDL Cholesterol, Calc 48 VLDL Cholesterol, Calc 22 HDL Cholesterol 39 Cholesterol/HDL Ratio 3 03/18/20 05:39 WBC RBC Hgb Hct MCV MCH MCHC RDW Std Deviation RDW Coeff of Meghan Plt Count MPV Immature Gran % (Auto) Neut % (Auto) Lymph % (Auto) [place] % (Auto) Eos % (Auto) Baso % (Auto) Neut # (Auto) Lymph # (Auto) [place] # (Auto) Eos # (Auto) Baso # (Auto) Immature Gran # (Auto) APTT PTT Ratio Sodium Potassium Chloride Carbon Dioxide Anion Gap BUN Creatinine Est Cr Clr Drug Dosing Est GFR ( Amer) Est GFR (Non-Af Amer) BUN/Creatinine Ratio Glucose Estimat Average Glucose Hemoglobin A1c Calcium Troponin I 6.910 H* Triglycerides Cholesterol LDL Cholesterol, Calc VLDL Cholesterol, Calc HDL Cholesterol Cholesterol/HDL Ratio Diagnostic Findings Telemetry personally reviewed: Predominantly sinus rhythm with nonsustained ventricular tachycardia consisting of 16 beats yesterday at 6:50 p.m.. Medications Administered Current Inpatient Medications Aspirin (Aspirin 81 Mg Ectab) 81 mg PO DAILY [facility] Stop: 04/16/20 08:59 Last Admin: 03/18/20 08:27 Dose: 81 mg Documented by: Atorvastatin Calcium (Atorvastatin 40 Mg Tab) 80 mg PO DAILY [facility] Stop: 04/16/20 08:59 Last Admin: 03/18/20 08:27 Dose: 80 mg Documented by: Clopidogrel Bisulfate (Clopidogrel Bisulfate 75 Mg Tab) [facility] Stop: 04/17/20 08:59 Last Admin: 03/18/20 08:27 Dose: 75 mg Documented by: Heparin Sodium/Dextrose (Heparin Sodium/Dextrose) 25,000 units in 500 mls @ 27 mls/hr IV .[id number] [facility]; Protocol Stop: 04/16/20 03:14 Last Titration: 03/18/20 06:24 Dose: 1,350 units/hr, 27 mls/hr Documented by: Isosorbide Mononitrate (Isosorbide [place] Extended Rel 30 Mg Tabcr) 30 mg PO [facility] Stop: 04/17/20 08:59 Last Admin: 03/18/20 08:26 Dose: 30 mg Documented by: Lisinopril (Lisinopril 10 Mg Tab) 30 mg PO [facility] Stop: 04/18/20 08:59 Metoprolol Succinate (Metoprolol Succ 50mg Ext Rel Tab) 100 mg PO DAILY [facility] Stop: 04/17/20 08:59 Last Admin: 03/18/20 08:27 Dose: 100 mg Documented by: Morphine Sulfate (Morphine Sulfate 2 Mg/Ml Carp) 2 mg IV Q3H PRN PRN Reason: Pain Stop: 03/31/20 04:47 PG Care Time/CCT Total # of Minutes Spent Total Time Spent with Patient: Total time spent is greater than 50% in coordination of care (as documented) at patient's floor/unit and/or counseling patient: Coding Level of Care Code 18429 Subseq Hosp Care Lvl 3 Diagnoses NSTEMI (non-ST elevated myocardial infarction) I21.4 CAD (coronary artery disease) I25.700 Associated angina: with unstable angina Coronary Disease-Associated Artery/Lesion type: bypass graft [place] vs. transplanted heart: [place] heart S/P CABG (coronary artery bypass graft) Z95.1 Hypertension I10 Paroxysmal ventricular tachycardia I47.2 Hypercholesterolemia E78.00 (1) CAD (coronary artery disease) Associated angina: with unstable angina Coronary Disease-Associated Artery/Lesion type: bypass graft [place] vs. transplanted heart: [place] heart Qualified Code(s): I25.700 - Atherosclerosis of coronary artery bypass graft(s), unspecified, with unstable angina pectoris
[2020-03-18 12:46] LABS: Partial Thromboplastin Time 55.1 Seconds (21.0-31.0)
[2020-03-18] MEDS: HEPARIN SODIUM/DEXTROSE 25,000 UNITS/500 ML BAG IV SCH ×2 (13:19→21:31)
--- NOTE | 2020-03-18 15:36 | Hospitalist Progress Note ---
Date of Service March 18, 2020 Assessment & Plan (1) NSTEMI (non-ST elevated myocardial infarction): Mr. Feliz is a 64yo with a PMHx significant for CAD s/p CABG done at [facility] years ago, HTN, melanoma and macular degeneration who was admitted with chest pain and elevated troponins. Atypical chest pain/NSTEMI -Pt describes a Hx of angina for the past few months -EKG with evidence of ischemia in lateral leads -Troponins elevated to 0.969 ->14->16 -lipid panel tc 109, ldl 48, hdl 39, hgbA1c pending Cardiac catheterization was completed,03/17/20 demonstrating: LM -large caliber vessel, 90% heavily calcified distal left main prior to bifurcation LAD -100% mid occlusion after takeoff of first septal. Circumflex -retrograde takeoff, 95% ostial lesion with disease extending into mid segment across takeoff of OM1, OM 2. Medium caliber OM 2 with 50% proximal disease. RCA -large caliber, dominant, heavily calcified, subtotal earlymid RCA occlusion, 100% latemid RCA occlusion. RV branch fills via right to right collaterals. CARBONE to LADwidely patent. Mid to distal LAD after anastomosis small vessel with moderate diffuse disease. Gives off brisk epicardial collaterals to right PLB which retrofills into distal RCA. SVG to circumflexoccluded at the ostium SVG to PDAdiffuse 90% disease involving total length of vein graft with ТАТЬЯНА I-II flow Medical therapy was recommended and if failed, could consider high risk PCI of LMCA and Cx, with likely atherectomy of the left main. recommend metoprolol succinate to 100 mg daily Isosorbide and lisinoprol . Could also consider calcium channel deon therapy. Recommend continuing heparin drip for 48 hours. Hypokalemia -replete -holding HCTZ as above CAD -Hx of CABG in 2018 at [facility] after stress test showed blockages in 3 vessels -continue home metoprolol succinate increased to 100mg, atorvastatin 80mg, aspirin 81m, and lisinopril 30mg here. HTN -lisinopril -continue lisinopril 30mg with beta deon above (metoprolol succinate 100mg) Hx of melanoma -Pt with Hx of melanoma on his back -completely removed -follows with [facility] in the area Hx of macular degeneration -stable, pt to stay on otc vitamins DVT prophylaxis: on heparin drip CODE STATUS: Full code, discussed with pt and Admission and Anticipated Discharge Date Admission Date: March 17, 2020 Subjective He feels much better today. Angina has completely resolved. He denies shortness of breath, syncope, near-syncope, palpitations, edema, or issues with his left radial catheterization site. He ambulated in the hallways yesterday with his and states that he tolerated well. His was present at the bedside with a tablet page full of questions all questions were answered Review of Systems Review of Systems: Mild distress and fatigue no headache, blurry or double vision no speech or swallowing issues complete resolution of Vague persistent chest discomfort, not described as pressure or palpitations no shortness of breath, cough or wheezes no abdominal pain, nausea or vomiting, diarrhea or constipation no dysuria, hematuria or frequency no focal joint pain or swelling no back pain, CVA tenderness or radicular pain no bruising, bleeding or rashes no focal signs of weakness or numbness or altered sensation no complaints or anxiety or depression. Physical Exam Physical Exam: The patient appeared well nourished and normally developed. Vital signs as documented. Head exam is normocephalic atraumatic no scleral icterus Neck is without JVD, thyromegaly, or carotid bruits. Lungs are clear to auscultation, no focal loss of breath sounds Cardiac exam, Rhythm is regular.. No murmurs, rubs or gallops. Abdominal exam reveals normal bowel sounds, soft non tender, no masses Extremities are nonedematous and both pedal pulses are normal. Neurologic exam is alert and oriented, no focal loss of strength or sensation Skin is without bruises or rashes Psychologically is without concerns for anxiety or depression Results & Data Results & Data ([facility]) Vital Signs (Past 12 Hours) Vital Signs Temp Pulse Pulse Resp BP Pulse Ox 03/18/20 12:07 98.4 F 75 19 133/55 L 94 03/18/20 08:53 65 03/18/20 07:13 98.2 F 78 18 165/85 H 96 03/18/20 03:45 98.6 F 76 18 156/85 H 96 PG Care Time/CCT Total # of Minutes Spent Total Time Spent with Patient: Total time spent is greater than 50% in coordination of care (as documented) at patient's floor/unit and/or counseling patient: Coding Level of Care Code 84755 Subseq Hosp Care Lvl 2 Diagnoses NSTEMI (non-ST elevated myocardial infarction) I21.4
--- NOTE | 2020-03-18 16:32 | Electrocardiogram Report ---
Test Reason : Blood Pressure : / mmHG Vent. Rate : 085 BPM Atrial Rate : 085 BPM P-R Int : 172 ms QRS Dur : 100 ms QT Int : 406 ms P-R-T Axes : 011 -71 -57 degrees QTc Int : 483 ms Normal sinus rhythm Incomplete right bundle branch block Left anterior fascicular block Possible Lateral infarct , age undetermined Possible Inferior infarct , age undetermined ST depression in anterior and lateral leads, consider ischemia Abnormal ECG No previous ECGs available Confirmed by Abdoul Mcarthur ([id number]) on 03/18/2020 4:31:54 PM Referred By: REFERRED SELF Confirmed By:Abdoul Mcarthur
--- NOTE | 2020-03-18 22:44 | Electrocardiogram Report ---
Test Reason : Blood Pressure : / mmHG Vent. Rate : 071 BPM Atrial Rate : 071 BPM P-R Int : 200 ms QRS Dur : 096 ms QT Int : 420 ms P-R-T Axes : 031 -23 105 degrees QTc Int : 456 ms Normal sinus rhythm Nonspecific ST and T wave abnormality Abnormal ECG When compared with ECG of 17-MAR-2020 01:42, ST less depressed in Anterolateral leads Confirmed by Abdoul Mcarthur ([id number]) on 03/18/2020 10:44:28 PM Referred By: REFERRED SELF Confirmed By:Abdoul Mcarthur
--- NOTE | 2020-03-18 22:45 | Electrocardiogram Report ---
Test Reason : Blood Pressure : / mmHG Vent. Rate : 071 BPM Atrial Rate : 071 BPM P-R Int : 194 ms QRS Dur : 094 ms QT Int : 428 ms P-R-T Axes : 021 -28 116 degrees QTc Int : 465 ms Normal sinus rhythm Nonspecific ST and T wave abnormality Abnormal ECG When compared with ECG of 17-MAR-2020 09:33, No significant change was found Confirmed by Abdoul Mcarthur ([id number]) on 03/18/2020 10:45:38 PM Referred By: REFERRED SELF Confirmed By:Abdoul Mcarthur
--- NOTE | 2020-03-19 00:05 | Electrocardiogram Report ---
Test Reason : Blood Pressure : / mmHG Vent. Rate : 070 BPM Atrial Rate : 070 BPM P-R Int : 192 ms QRS Dur : 094 ms QT Int : 426 ms P-R-T Axes : 026 -18 155 degrees QTc Int : 460 ms Normal sinus rhythm Nonspecific ST and T wave abnormality Abnormal ECG When compared with ECG of 17-MAR-2020 10:41, Nonspecific T wave abnormality, worse in Lateral leads Confirmed by Abdoul Mcarthur ([id number]) on 03/19/2020 12:05:04 AM Referred By: REFERRED SELF Confirmed By:Abdoul Mcarthur
[2020-03-19 05:46] LABS: Estimated Average Glucose 137 mg/dl; Hemoglobin A1C 6.4 % (4.5-5.6)
[2020-03-19] MEDS: HEPARIN SODIUM/DEXTROSE 25,000 UNITS/500 ML BAG IV SCH (06:08)
[2020-03-19 06:31] LABS: Partial Thromboplastin Time 54.5 Seconds (21.0-31.0)
[2020-03-19 06:44] LABS: BUN Creatinine Ratio 16.9 (10-20); Calcium 8.7 mg/dl (8.5-10.1); Creatinine Clr Calc Pharmacy 116.1 ml/min; Est GFR (African American) 108.5; Est GFR (Non-African American) 93.6; Potassium 3.6 mmol/L (3.5-5.1)
[2020-03-19 08:07] VITALS: BP 153/87; PULSE 64; TEMP 97.9; O2SAT 93
[2020-03-19] MEDS: ATORVASTATIN 40 MG TAB PO SCH (08:33)
[2020-03-19] MEDS: ISOSORBIDE MONO EXTENDED REL 30 MG TABCR PO SCH (08:33)
[2020-03-19] MEDS: CLOPIDOGREL BISULFATE 75 MG TAB PO SCH (08:33)
[2020-03-19] MEDS: METOPROLOL SUCC 50MG EXT REL TAB PO SCH (08:33)
[2020-03-19] MEDS: ASPIRIN 81 MG ECTAB PO SCH (08:33)
[2020-03-19] MEDS ORDERED: lisinopriL 10 MG TAB PO SCH (09:00)
--- NOTE | 2020-03-19 09:29 | Cardiology Progress Note ---
Date of Service March 19, 2020 Assessment & Plan (1) NSTEMI (non-ST elevated myocardial infarction): (2) CAD (coronary artery disease): (3) S/P CABG (coronary artery bypass graft): (4) Hypertension: (5) Paroxysmal ventricular tachycardia: (6) Hypercholesterolemia: ASSESSMENT/PLAN: 1. NSTEMI: No further angina after medical therapy has been adjusted. Medical therapy was recommended by Interventional Cardiology. Continue aspirin 81 mg daily indefinitely. Continue Plavix 75 mg daily for at least 1 year as part of aggressive medical therapy. Metoprolol has been titrated and can be further titrated if necessary. Lisinopril has been increased and would continue with increased dose on discharge. Continue nitrate therapy. Continue high-intensity statin therapy. Heparin drip can be discontinued. Medical therapy was recommended and if failed, could consider high risk PCI of LMCA and Cx, with likely atherectomy of the left main. 2. CAD s/p CABG: Plan as above. Continue dual anti-platelet therapy. Continue beta-deon and NICOLE-inhibitor. Continue high-intensity statin therapy. Continue nitrate therapy. Cardiac rehabilitation recommended. Recommend Mediterranean diet. 3. Hypertension: Blood pressure improved throughout the day yesterday but was once again increased this morning. Continue lisinopril 30 mg daily (increased from 20 mg) and increased dose of beta-deon. Can make further adjustments as an outpatient as appropriate. 4. Dyslipidemia: Continue high-intensity statin therapy. 5. Ventricular tachycardia: Nonsustained ventricular tachycardia is not unusual within 48 hours of myocardial infarction. No further ventricular tachycardia over the past 24 hours. Continue titrated dose of beta-deon. 6. Disposition: Okay for discharge home from a cardiac perspective. Follow up in the cardiology office in approximately 1-2 weeks. Cardiac rehabilitation recommended and he is agreeable. Patient care discussed with Dr. Albarran. Admission and Anticipated Discharge Date Admission Date: March 17, 2020 Subjective He was seen this morning at approximately 9:05 a.m.. He was able to ambulate in the hallway several times without chest pain. He denies angina, shortness of breath, syncope, near-syncope, palpitations, edema, or bleeding. His was present at the bedside. Review of systems: As above. Physical Exam Physical Exam: Gen.: No acute distress. Alert and oriented. HEENT: Anicteric sclera. Neck: No JVD. Cardiac: No ventricular heave. Regular. No ectopy. Normal S1-S2. No murmurs, rubs, or gallops. Pulmonary: Clear to auscultation bilaterally without wheezes, rales, or rhonchi. Abdomen: Soft, nontender, nondistended, with normoactive bowel sounds. No bruits noted. Extremities: 2+ radial pulses bilaterally. Left radial catheterization site is clean, dry, and intact without erythema or discharge. 2+ posterior tibialis pulses bilaterally. Trace left lower extremity edema. (s/p left lower extremity vein harvest ). No cyanosis. Psychiatric: Affect appears appropriate. Results & Data ([facility]) Vital Signs (Past 12 Hours) Vital Signs Temp Pulse Resp BP Pulse Ox 03/19/20 08:06 36.6 C 64 18 153/87 H 93 03/19/20 02:49 36.8 C 66 16 147/75 H 92 03/18/20 23:18 36.5 C 65 16 134/76 96 Laboratory Results Laboratory Results - last 24 hr 03/18/20 03/18/20 03/18/20 05:39 05:39 12:10 APTT 55.1 H* PTT Ratio 2.0 Sodium Potassium Chloride Carbon Dioxide Anion Gap BUN Creatinine Est Cr Clr Drug Dosing Est GFR ( Amer) Est GFR (Non-Af Amer) BUN/Creatinine Ratio Glucose Estimat Average Glucose 137 Hemoglobin A1c 6.4 H Calcium Troponin I 6.910 H* 03/19/20 03/19/20 05:34 05:34 APTT 54.5 H* PTT Ratio 2.0 Sodium 142 Potassium 3.6 Chloride 111 H Carbon Dioxide 24 Anion Gap 7.0 BUN 13 Creatinine 0.79 Est Cr Clr Drug Dosing 116.1 Est GFR ( Amer) 108.5 Est GFR (Non-Af Amer) 93.6 BUN/Creatinine Ratio 16.9 Glucose 101 H Estimat Average Glucose Hemoglobin A1c Calcium 8.7 Troponin I Diagnostic Findings Telemetry personally reviewed. No further arrhythmia. Sinus rhythm. ECG personally reviewed: ECG 03/19/2020: Sinus bradycardia with PVC. 58 beats per minute. Incomplete RBBB. Nonspecific T-wave abnormality. Medications Administered Current Inpatient Medications Aspirin (Aspirin 81 Mg Ectab) 81 mg PO DAILY [facility] Stop: 04/16/20 08:59 Last Admin: 03/19/20 08:33 Dose: 81 mg Documented by: Atorvastatin Calcium (Atorvastatin 40 Mg Tab) 80 mg PO DAILY [facility] Stop: 04/16/20 08:59 Last Admin: 03/19/20 08:33 Dose: 80 mg Documented by: Clopidogrel Bisulfate (Clopidogrel Bisulfate 75 Mg Tab) 75 mg PO QAM [facility] Stop: 04/17/20 08:59 Last Admin: 03/19/20 08:33 Dose: 75 mg Documented by: Heparin Sodium/Dextrose (Heparin Sodium/Dextrose) 25,000 units in 500 mls @ 27 mls/hr IV .[id number] [facility]; Protocol Stop: 04/16/20 03:14 Last Admin: 03/19/20 06:08 Dose: 1,350 units/hr, 27 mls/hr Documented by: Isosorbide Mononitrate (Isosorbide Foard Extended Rel 30 Mg Tabcr) 30 mg PO [facility] Stop: 04/17/20 08:59 Last Admin: 03/19/20 08:33 Dose: 30 mg Documented by: Lisinopril (Lisinopril 10 Mg Tab) 30 mg PO [facility] Stop: 04/18/20 08:59 Last Admin: 03/19/20 08:33 Dose: 30 mg Documented by: Metoprolol Succinate (Metoprolol Succ 50mg Ext Rel Tab) 100 mg PO DAILY [facility] Stop: 04/17/20 08:59 Last Admin: 03/19/20 08:33 Dose: 100 mg Documented by: Morphine Sulfate (Morphine Sulfate 2 Mg/Ml Carp) 2 mg IV Q3H PRN PRN Reason: Pain Stop: 03/31/20 04:47 PG Care Time/CCT Total # of Minutes Spent Total Time Spent with Patient: Total time spent is greater than 50% in coordination of care (as documented) at patient's floor/unit and/or counseling patient: Coding Level of Care Code 57551 Subseq Hosp Care Lvl 3 Diagnoses NSTEMI (non-ST elevated myocardial infarction) I21.4 CAD (coronary artery disease) I25.700 Associated angina: with unstable angina Coronary Disease-Associated Artery/Lesion type: bypass graft Council vs. transplanted heart: jena heart S/P CABG (coronary artery bypass graft) Z95.1 Hypertension I10 Paroxysmal ventricular tachycardia I47.2 Hypercholesterolemia E78.00 (1) CAD (coronary artery disease) Associated angina: with unstable angina Coronary Disease-Associated Artery/Lesion type: bypass graft Council vs. transplanted heart: jena heart Qualified Code(s): I25.700 - Atherosclerosis of coronary artery bypass graft(s), unspecified, with unstable angina pectoris
--- NOTE | 2020-03-19 12:48 | Electrocardiogram Report ---
Test Reason : Blood Pressure : / mmHG Vent. Rate : 058 BPM Atrial Rate : 058 BPM P-R Int : 198 ms QRS Dur : 098 ms QT Int : 454 ms P-R-T Axes : 027 -11 135 degrees QTc Int : 445 ms Sinus bradycardia with occasional Premature ventricular complexes Incomplete right bundle branch block Nonspecific T wave abnormality Abnormal ECG When compared with ECG of 18-MAR-2020 14:28, Premature ventricular complexes are now Present Confirmed by Krishna Tripp ([id number]) on 03/19/2020 12:48:36 PM Referred By: REFERRED SELF Confirmed By:Krishna Tripp
--- NOTE | 2020-03-19 16:17 | Discharge Summary ---
Date of Service March 19, 2020 Admission HPI Per Admitting Provider Mr. Feliz is a 64yo with a PMHx significant for CAD s/p [place]G done [place] [facility] [place], HTN, melanoma and macular degeneration who was admitted with chest pain and elevated troponins. Pt states that about midnight he was up doing dishes (admits he is retired so his schedule is a bit off) when he had the onset of 6/10 chest discomfort that radiated down his arms bilaterally. No associated SOB, N/V, or diaphoresis. He had been having similar symptoms during the day but they went away with rest. However, this time, he decided to go to bed hoping that would help with relieving the pain. However the pain persisted and he asked his to call [address] he received nitro sprays and aspirin which helped bring his pain down from a 6 to a 0 currently. 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 Waller sent him for a stress echo. The results of that sent him to [facility] for a cath where it was discovered that he had blockages in 3 vessels requiring CABG. States he has never smoked, rarely uses alcohol. His father of an [place] at age 44 and his uncles all had MIs later in their life as well. States his diet is not the best. admits that before [facility] she rarely cooked and they mostly ate out. He has stopped exercising or walking since he started having anginal symptoms once more. States that while out for walks he would note ta chycardia to 80s-90s on his apple watch, sometimes associated with the chest discomfort. EMS course: 3 nitro sprays, aspirin 324mg given. ED course: Heparin started Principal Diagnosis N Stemi' unstable angina Discharge Exam The patient appeared well Vital signs as documented. Lungs are clear to auscultation and appear unlabored Cardiac exam, Rhythm is regular.. No murmurs, rubs or gallops. Abdominal exam reveals normal bowel sounds, soft non tender, no masses Extremities are nonedematous and both pedal pulses are normal. Neurologic exam is alert and oriented, no focal loss of strength or sensation Skin is without bruises or rashes Psychologically is without concerns for anxiety or depression. Discharge Data Allergies Allergy/AdvReac Type Severity Reaction Status Date / Time No Known Allergies Allergy Verified 03/17/20 02:27 Consultations 03/17/20 03:13 ED Decision to Admit Stat 03/17/20 04:48 Consult Cardiology Routine 03/17/20 13:07 Consult Cardiac Rehabilitation Routine Procedures Performed Operation Date: 03/17/20 11:25 Actual Procedures p Cath, Left w/Cors Vent Grafts - Jose Garrison MD s Cineradiography w/Routine Exam - Jose Garrison MD p Cardiac Heart Alert - Jose Garrison MD Ordered Studies 03/17/20 11:28 CL Cath Imgs for PACS use only Stat Hospital Course (1) NSTEMI (non-ST elevated myocardial infarction): Mr. Feliz is a 64yo with a PMHx significant for CAD s/p CABG done [place] [facility] [place], HTN, melanoma and macular degeneration who was admitted with chest pain and elevated troponins. Atypical chest pain/NSTEMI -Pt describes a Hx of angina for the past few months -EKG with evidence of ischemia in lateral leads -Troponins elevated to 0.969 ->14->16 -lipid panel tc 109, ldl 48, hdl 39, hgbA1c pending Cardiac catheterization was completed,03/17/20 demonstrating: LM -large caliber vessel, 90% heavily calcified distal left main prior to bifurcation LAD -100% mid occlusion after takeoff of first septal. Circumflex -retrograde takeoff, 95% ostial lesion with disease extending into mid segment across takeoff of OM1, OM 2. Medium caliber OM 2 with 50% proximal disease. RCA -large caliber, dominant, heavily calcified, subtotal earlymid RCA occlusion, 100% latemid RCA occlusion. RV branch fills via right to right collaterals. CARBONE to LADwidely patent. Mid to distal LAD after anastomosis small vessel with moderate diffuse disease. Gives off brisk epicardial collaterals to right PLB which retrofills into distal RCA. SVG to circumflexoccluded at the ostium SVG to PDAdiffuse 90% disease involving total length of vein graft with ТАТЬЯНА I-II flow Medical therapy was recommended and if failed, could consider high risk PCI of LMCA and Cx, with likely atherectomy of the left main. recommend metoprolol succinate to 100 mg daily Isosorbide and lisinoprol . Hypokalemia -replete - stopping HCTZ as above CAD -Hx of CABG [place] [facility] [place] test showed blockages in 3 vessels -continue home metoprolol succinate increased to 100mg, atorvastatin 80mg, aspirin 81m, and lisinopril 30mg here. HTN -lisinopril -continue lisinopril 30mg with beta deon above (metoprolol succinate 100mg) Hx of melanoma -Pt with Hx of melanoma on his back -completely removed -follows with [facility] in the area Hx of macular degeneration -stable, pt to stay on otc vitamins CODE STATUS: Full code, discussed with pt and Total Time Total Time Spent Total Time Spent (In Minutes): It required greater than 30 minutes to prepare this patient for discharge Discharge Plan Discharge Items Patient Disposition: Home - Self-Care Reason For Visit: NSTEMI Discharge Diagnosis: non st elevated [place] Activity: Per Instructions section Activity Comment: no intentional exercise until you complete cardiac rehab Non-emergency contact: Primary Care Provider and Heater Operator Call non-emergency contact if: you have any medication questions and your symptoms worsen Follow-up/Referrals: Yanira Martell MD [Primary Care Provider] - 03/27/20 10:50 am (Dr. Martell is unavailable. Please follow up with Cheri Hawley PA-C at [facility] on Thursday03/27/2020 at 10:50 am. Please arrive to the office 15 minutes early for your appointment. If you are unable to keep this appointment, please call the office to reschedule at [phone]. ) Diet: Low Sodium (2gm) Addtl Attending Provider Instructions: please be in contact with cardiology if any questions Pending Studies at Discharge: No Stand-Alone Forms: My [facility] Diagnostics, Smoking Cessation Medications and DC Order Prescriptions: New metoprolol succinate 50 mg Tablet Extended Release 24 Hr 100 mg PO DAILY Qty: 90 RF: 3 isosorbide mononitrate 30 mg Tablet Extended Release 24 Hr 30 mg PO QAM Qty: 90 RF: 3 clopidogrel 75 mg Tablet 75 mg PO QAM Qty: 90 RF: 3 lisinopril 10 mg Tablet 30 mg PO QAM Qty: 180 RF: 3 Continued atorvastatin 80 mg tablet 80 mg PO DAILY Qty: 90 RF: 3 PreserVision AREDS [id number] capsule 1 cap PO BID RF: 0 nitroglycerin 0.4 mg tablet, sublingual 0.4 mg SL Q5M PRN (Reason: chest pain) Qty: 30 RF: 0 aspirin 81 mg tablet,chewable 1 tab PO DAILY RF: 0 Discontinued lisinopril-hydrochlorothiazide 20-12.5 mg tablet 1 tab PO DAILY Qty: 90 RF: 3 metoprolol succinate 50 mg tablet extended release 24 hr 50 mg PO DAILY Qty: 90 RF: 3 Discharge Orders: Discharge Order (Routine); Ordered 03/19/20 Ordered By: Horacio Kaufman/Other Patient Handouts: Prediabetes, Diabetes: Meal Planning, Eating Heart-Healthy Foods, A1C Admission Data Admit Date/Time: 03/17/20 03:51 Attending Provider: Horacio Albarran Admit Provider: Janki Hutchinson Primary Care Provider: Yanira Martell Other Interventions: Discharge Summary Assessment (RN) Last Done: 03/19/20 09:30 Coding Level of Care Code D/C Day Management >30 mins Diagnoses NSTEMI (non-ST elevated myocardial infarction) I21.4
== END 2020-03-19 09:47 | disposition home or self-care (01) | DRG 281 ==
LOC: ED 01:38 → SUATTDRO 03:51 → 2S 03:51

== ENCOUNTER 2020-05-21 07:06 | Inpatient (IN) ==
[2020-05-21] MEDS ORDERED: NITROGLYCERIN 2% OINTMENT 30GM TUBE ONE (07:46)
[2020-05-21] MEDS ORDERED: NITROGLYCERIN 2% OINTMENT 30GM TUBE EXT STA (07:48)
--- NOTE | 2020-05-21 07:52 | Emergency Department Note ---
Impression & Plan Precordial chest pain, Elevated troponin, Acute electrocardiogram changes ED Provider Note NAME: DARIUS DIEGO AGE: 64 SEX: M : 1955 ARRIVES VIA: Walk-In INFORMANT: [Patient] ED PROVIDER(S): [Richie Rehman MD] CHIEF COMPLAINT: Chest pain HISTORY OF PRESENT ILLNESS: The patient is a 64-year-old male who presents to the ER with substernal chest pain. The patient has had pain now for around 4 hours. The pain has been intermittent. The patient awoke at 4:00 this morning, he did take a nitroglycerin and the pain improved. He states that around 530, the pain ret urned and he took another nitroglycerin. The pain again improved. Around 630, the pain restarted a third time and he took a third nitroglycerin. Pain again improved but now, he is again having chest pain. The pain is a 4/10. He has some pain in his left arm. There is no shortness of breath, no nausea. No current sweating but he felt slightly sweaty earlier when the pain first began. The patient was just in our hospital for a non-ST elevation [place]. He is being treated medically as he has complex coronary disease. He has already had a triple bypass. The patient states that his oral nitrates have been increased lately, his metoprolol is being increased. He was doing well up until this morning. He does mention that last night he felt slightly short of breath although, he thought this might have been from his medication changes. Of note, the patient did not take any of his medications this morning. REVIEW OF SYSTEMS: See HPI for pertinent positives and negatives. A total of ten systems were reviewed and were otherwise negative. PMHx/PSHx: See Below SOCIAL HISTORY: See Below. PHYSICAL EXAM: GENERAL: Patient is in no acute distress. HEENT: No acute trauma, normocephalic atraumatic, mucous membranes moist, no nasal congestion, no scleral icterus. NECK: No stridor, no adenopathy, no meningismus, trachea is midline. LUNGS: Clear to auscultation bilaterally, no wheeze, no rhonchi, breath sounds equal. HEART: Subtle systolic murmur, regular rate and rhythm. ABDOMEN: Soft, nontender, bowel sounds positive, no hernias, no peritonitis. EXTREMITIES: No cyanosis or edema, full range of motion of all the joints without pain or difficulty, no signs for acute trauma. NEUROLOGIC: Oriented x 3, no acute motor or sensory deficits, no focal weakness. SKIN: No rash, no jaundice, no diaphoresis. DIFFERENTIAL DIAGNOSIS: Cardiac ischemia, aortic dissection, pulmonary embolism, pneumothorax, pneumonia, pericarditis, myocarditis, esophageal rupture, GERD, cholecystitis, pancreatitis, musculoskeletal, as well as other pathologies. EMERGENCY DEPARTMENT COURSE/PROCEDURES: ECG: Indication was chest pain. The ECG shows a sinus rhythm with a PVC. The rate is 73. The QTc is 473. There is ST depression laterally. No ST elevation. Compared to an ECG from 19 March 2020, the ST depressions are now present. Continuous Cardiac Monitoring: An order was placed for continuous cardiac monitoring. The monitor shows a rate of 71 with normal sinus rhythm. Critical Care Note: I have personally spent 41 minutes of critical care time in the direct management of this patient. This includes bedside care, interpretation of diagnostic studies, and testing, discussion with consultants, patient, and family members, and other required patient management activities. This 41 minutes is in excess of all separately billable procedures. MEDICAL DECISION MAKING: There is no leukocytosis or worrisome anemia. There is a normal platelet count. No coagulopathy. No significant electrolyte abnormality or kidney failure. The troponin is slightly elevated, this could be consistent with acute cardiac ischemia. ECG shows ST depression in the lateral leads, no ST elevation. Chest film does not show pneumonia or worrisome CHF. Lipase was not elevated. The patient presents with precordial chest pain. He has known coronary disease. He did have some EKG changes and an elevated troponin. The patient was aggressively managed. He was given his normal dose of oral metoprolol and oral aspirin--he took his own home medications that he had brought with him. He received 3 inches of nitroglycerin paste. He was given IV heparin. A bolus of heparin was given and he was placed on a heparin drip. Patient is feeling improved since the above medication regimen was administered. His EKG has shown improvement. I spoke with cardiology, I did consult the medical team. I spoke with the complex case manager. Hospitalization is warranted. The patient is aware of all his findings. Further cardiac testing/work-up is warranted. Past Med/Surg History Medical History Abnormal liver function test Atypical chest pain CAD (coronary artery disease) Enlarged prostate without lower urinary tract symptoms (luts) Hx of sciatica Hypercholesterolemia Hypertension Osteoarthritis Surgical History History of foot surgery bilateral History of herniorrhaphy "Bilateral" 1971 Hx of tonsillectomy S/P CABG (coronary artery bypass graft) 3 vessel Family History (Updated 11/18/19 @ 15:33 by Dennise Nunes) Father Acute myocardial infarction at age 44 Mother Coronary heart disease Diabetes Brother Hypertension Social History Smoking Status: Never smoker Second Hand Exposure: No; Do You Dip or Chew Tobacco: No; Tobacco Cessation Education Requested by Patient: No Hx Alcohol Use: No Hx Substance Use: No Preferred Language: Cambodian Communication Ability: Effective [place] [employer] Required: No Beliefs That Will Affect Care: None marital status: Current Living Situation: Spouse Feels Safe at Home: Yes Assistive Devices: None Allergies Allergies Allergy/AdvReac Type Severity Reaction Status Date / Time No Known Allergies Allergy Verified 05/21/20 07:36 Home Meds Home Medications Medication Instructions Recorded Confirmed aspirin 81 mg chewable tablet 1 tab PO DAILY tab 04/13/19 05/21/20 vitamins A,C,F-qmws-ruobfi 14,320 1 cap PO BID 04/13/19 05/21/20 unit-226 mg-200 unit capsule cholecalciferol (vitamin D3) 50 50 mcg PO DAILY 05/18/20 05/21/20 mcg (2,000 unit) capsule Previous Rx's Medication Instructions Recorded atorvastatin 80 mg tablet 80 mg PO DAILY #90 tab 03/13/20 clopidogrel 75 mg PO QAM #90 tab 03/19/20 lisinopril 30 mg PO QAM #180 tab 03/19/20 metoprolol succinate 100 mg 150 mg PO DAILY #135 tab 04/12/20 tablet,extended release 24 hr nitroglycerin 0.4 mg sublingual 0.4 mg SL Q5M PRN #25 tab 05/02/20 tablet isosorbide mononitrate 120 mg 120 mg PO DAILY #90 tab 05/18/20 tablet,extended release 24 hr Results & Data (ED) Vital Signs Vital Signs - 24 hr 05/21/20 07:52 05/21/20 08:56 05/21/20 09:44 Temperature Temperature Source Pulse Rate [Left Finger] 75 80 68 Pulse Rhythm [Left Finger] Pulse Strength [Left Finger] Respiratory Rate 22 18 24 Respiratory Effort / Characteristics Respiratory Depth Respiratory Pattern Blood Pressure [Left Arm] 184/98 H 192/102 H 130/72 Blood Pressure Mean [Left Arm] 126 132 91 Blood Pressure Position [Left Arm] Pulse Oximetry 95 95 93 Oxygen Delivery Method Room Air Room Air Room Air 05/21/20 10:24 Temperature 36.9 C Temperature Source Oral Pulse Rate [Left Finger] 71 Pulse Rhythm [Left Finger] Regular Pulse Strength [Left Finger] Normal Respiratory Rate 16 Respiratory Effort / Characteristics Non-Labored Spontaneous SOB on Exertion Respiratory Depth Normal Respiratory Pattern Regular Blood Pressure [Left Arm] 137/78 Blood Pressure Mean [Left Arm] 97 Blood Pressure Position [Left Arm] Lying Pulse Oximetry 97 Oxygen Delivery Method Room Air Home Medications Current Medication List: was personally reviewed by me Laboratory Data Attestation: I reviewed the patient's lab results. Result diagrams: 05/22/20 04:38 05/22/20 04:38 Lab Results 05/21/20 05/21/20 05/21/20 Range/Units 07:30 07:30 07:30 WBC 8.23 (4.8-10.8) K/uL RBC 4.84 (4.7-6.1) M/uL Hgb 14.8 (14.0-18.0) g/dL Hct 44.3 (42-52) % MCV 91.5 (80-100) fL MCH 30.6 (25-34) pg MCHC 33.4 (32-36) g/dL RDW Std Deviation 47.6 H (36.4-46.3) fL RDW Coeff of Meghan 14.2 (11.5-14.5) % Plt Count 181 (130-400) K/uL MPV 9.9 (7.4-10.4) fL Immature Gran % (Auto) 0.1 % Neut % (Auto) 64.6 % Lymph % (Auto) 22.8 % [place] % (Auto) 10.2 % Eos % (Auto) 1.9 % Baso % (Auto) 0.4 % Neut # (Auto) 5.31 (1.4-6.5) K/uL Lymph # (Auto) 1.88 (1.2-3.4) K/uL [place] # (Auto) 0.84 H (0.11-0.59) K/uL Eos # (Auto) 0.16 (0-0.5) K/uL Baso # (Auto) 0.03 (0-0.2) K/uL Immature Gran # (Auto) 0.01 (0.00-0.02) K/uL PT 11.0 (9.0-12.0) Seconds INR 1.0 (0.9-1.1) APTT 27.6 (21.0-31.0) Seconds PTT Ratio 1.0 Sodium 138 (136-145) mmol/L Potassium 3.9 (3.5-5.1) mmol/L Chloride 108 H (98-107) mmol/L Carbon Dioxide 24 (21-32) mmol/L Anion Gap 7.0 (3-11) BUN 17 (7-18) mg/dl Creatinine 0.93 (0.6-1.4) mg/dl Est Cr Clr Drug Dosing 99.3 ml/min Est GFR ( Amer) 98.8 Est GFR (Non-Af Amer) 85.2 BUN/Creatinine Ratio 18.6 (10-20) Glucose 121 H (70-99) mg/dl Calcium 9.6 (8.5-10.1) mg/dl Total Bilirubin 1.1 H (0.2-1) mg/dl AST 18 (15-37) U/L ALT 39 (12-78) U/L Alkaline Phosphatase 60 (45-117) U/L Troponin I 0.200 H* (0-0.045) ng/ml Total Protein 7.6 (6.4-8.2) gm/dl Albumin 3.6 (3.4-5.0) gm/dl Globulin 4.0 (2.5-4.0) gm/dl Albumin/Globulin Ratio 0.9 (0.9-2) Lipase 147 (73-393) U/L Administered Medications Amlodipine Besylate (Amlodipine Besylate 5 Mg Tab) [facility] [place] Stop: 06/20/20 09:15 Last Admin: 05/21/20 09:24 Dose: 2.5 mg Documented by: [id number] Heparin Sodium/Dextrose (Heparin Sodium/Dextrose) 25,000 units in 500 mls @ 28 mls/hr IV .[id number] [facility]; Protocol Stop: 06/20/20 07:59 Last Admin: 05/22/20 02:14 Dose: 1,400 units/hr, 28 mls/hr Documented by: [id number] Cosigned by: [id number] Titration: 05/22/20 01:07 Dose: 1,400 units/hr, 28 mls/hr Documented by: [id number] Cosigned by: [id number] Titration: 05/21/20 16:50 Dose: 1,400 units/hr, 28 mls/hr Documented by: [id number] Cosigned by: [id number] Admin: 05/21/20 08:27 Dose: 1,600 units/hr, 32 mls/hr Documented by: [id number] Cosigned by: [id number] Lorazepam (Lorazepam 0.5 Mg Tab) 0.5 mg PO BID PRN PRN Reason: Anxiety Stop: 06/20/20 14:17 Last Admin: 05/21/20 20:53 Dose: 0.5 mg Documented by: [id number] Discontinued Medications Heparin Sodium (Porcine) (Heparin Sod 5,000 Unit/0.5 Ml Vial) Confirm Administered Dose 10,000 units .ROUTE .STK-MED ONE Stop: 05/21/20 08:13 Last Admin: 05/21/20 08:27 Dose: Not Given Documented by: [id number] Heparin Sodium (Porcine) (Heparin Sod (Porcine) 1000 Unit/Ml 10 Ml Vial) Confirm Administered Dose 10,000 units .ROUTE .STK-MED ONE Stop: 05/21/20 08:26 Last Admin: 05/21/20 08:27 Dose: 7,000 units Documented by: [id number] Cosigned by: [id number] Heparin Sodium/Dextrose (Heparin Iv Standard With Bolus) 1 ea IV NOW STA; Protocol Stop: 05/21/20 07:57 Last Admin: 05/21/20 08:29 Dose: Not Given Documented by: [id number] Nitroglycerin (Nitroglycerin 2% Ointment 30gm Tube) Confirm Administered Dose 54 inch .ROUTE .STK-MED ONE Stop: 05/21/20 07:47 Last Admin: 05/21/20 07:50 Dose: Not Given Documented by: [id number] Nitroglycerin (Nitroglycerin 2% Ointment 30gm Tube) 3 inch EXT NOW STA Stop: 05/21/20 07:49 Last Admin: 05/21/20 07:50 Dose: 3 inch Documented by: [id number] Imaging Data Radiologist's Impression: XR chest 1V portable CLINICAL HISTORY: Atypical chest pain. COMPARISON STUDY: Chest radiograph March 17, 2020. FINDINGS: There are median sternotomy wires. No pneumothorax or pleural effusion is noted. There is no consolidation. Eldon B lines are noted. There is interstitial thickening. Mild cardiomegaly is noted. IMPRESSION: Interstitial pulmonary edema. Discharge Plan Visit Data Chief Complaint: Cardiac Assessment Stated Complaint: SOB,CHEST/ARM PAIN,SLIGHT ARM NUMBNESS ED Provider: Richie Rehman Discharge Problem: Precordial chest pain, Elevated troponin, Acute electrocardiogram changes Patient Disposition: Admitted As Inpatient Condition: Fair Discharge Instructions Interventions: ED Discharge Assessment Last Done: 05/21/20 09:52
[2020-05-21 08:09] LABS: Basophils # (auto) 0.03 K/uL (0-0.2); Basophils % (auto) 0.4 %; Eosinophils # (auto) 0.16 K/uL (0-0.5); Eosinophils % (auto) 1.9 %; Hematocrit (blood only) 44.3 % (42-52); Hemoglobin 14.8 g/dL (14.0-18.0); Immature Granulocytes # (auto) 0.01 K/uL (0.00-0.02); Immature Granulocytes % (auto) 0.1 %; Lymphocytes # (auto) 1.88 K/uL (1.2-3.4); Lymphocytes % (auto) 22.8 %; Mean Corpuscular Hemoglobin 30.6 pg (25-34); Mean Corpuscular Hgb Conc 33.4 g/dL (32-36); Mean Corpuscular Volume 91.5 fL (80-100); Mean Platelet Volume 9.9 fL (7.4-10.4); Monocytes # (auto) 0.84 K/uL (0.11-0.59); Monocytes % (auto) 10.2 %; Neutrophils # (auto) 5.31 K/uL (1.4-6.5); Neutrophils % (auto) 64.6 %; Platelet Count 181 K/uL (130-400); RDW Coefficient of Variation 14.2 % (11.5-14.5); RDW Standard Deviation 47.6 fL (36.4-46.3); Red Blood Count 4.84 M/uL (4.7-6.1); White Blood Count 8.23 K/uL (4.8-10.8)
[2020-05-21] MEDS ORDERED: HEPARIN SOD 5,000 UNIT/0.5 ML VIAL ONE (08:12)
[2020-05-21 08:18] LABS: Albumin Globulin Ratio 0.9 (0.9-2); Albumin Level 3.6 gm/dl (3.4-5.0); BUN Creatinine Ratio 18.6 (10-20); Bilirubin,Total 1.1 mg/dl (0.2-1); Calcium 9.6 mg/dl (8.5-10.1); Creatinine Clr Calc Pharmacy 99.3 ml/min; Est GFR (African American) 98.8; Est GFR (Non-African American) 85.2; Potassium 3.9 mmol/L (3.5-5.1); Total Protein 7.6 gm/dl (6.4-8.2)
[2020-05-21 08:22] LABS: Troponin I 0.2 ng/ml (0-0.045)
[2020-05-21] MEDS ORDERED: HEPARIN SOD (PORCINE) 1000 UNIT/ML 10 ML VIAL ONE (08:25)
[2020-05-21] MEDS: HEPARIN SODIUM/DEXTROSE 25,000 UNITS/500 ML BAG IV SCH (08:27)
[2020-05-21 08:28] LABS: Partial Thromboplastin Time 27.6 Seconds (21.0-31.0)
--- NOTE | 2020-05-21 08:38 | History & Physical Report ---
Date of Service May 21, 2020 Assessment & Plan (1) Exertional angina: (2) NSTEMI (non-ST elevated myocardial infarction): (3) CAD (coronary artery disease): (4) S/P CABG (coronary artery bypass graft): - Admit to tele for observation for r/o - Trend cardiac biomarkers, initial set was 0.200, trend x2 more sets - EKG reviewed as above as showing ST wave depressions in the lateral leads - Check 2 D echo - Cardiology consulted - Start amlodipine 2.5 mg PO along with other home medications which the patient was given in the ER - Continue heparin gtt - Last admission in March had similar presentation but due to severity of CAD pt would require transfer to tertiary care center for Cath if this was determined it would be needed. Pt understands this. He is currently chest pain free. - PT/OT consulted (5) Hypertension: -Continue home metoprolol succinate 100 mg daily, lisinopril 30 mg daily, Imdur 120 mg daily, Plavix 75 mg daily, atorvastatin 80 mg daily, aspirin 81 mg daily, and adding amlodipine 2.5 mg as above. (6) Hypercholesterolemia: -Continue statin therapy has been (7) Osteoarthritis: Noted, continue vitamin D supplementation DVT ppx: - teds, heparin gtt CODE: FULL Dispo: From home History of Present Illness Primary Care Provider: Yanira Martell MD This is a 64-year-old male with PMHx of HTN, HLD, CAD, CABG x3 (CARBONE to LAD; SVG to Cx OM; SVG to PDA), NSTEMI, exertional angina. The patient most recently underwent a cardiac cath on 03/17/2020 here at [facility] found to have severe coronary disease. It was felt that the acute culprit lesion was in ostial to mid circumflex and intervention was felt to be difficult, likely requiring arthrectomy of the LMCA and stenting across multiple branches. If PCI was attempted it was recommended to be referred to a tertiary care center for high risk/complex PCI. He was seen most recently on 05/18/2020 at cardiology as an outpatient by Dr. Mcarthur. Metoprolol had been titrated up in the past month, and so had Imdur. Pt is participating in cardiac rehab 3 times a week. Patient walks routinely for exercise otherwise. Occasionally he does need to stop due to bilateral arm pain or chest discomfort described as pressure. He typically uses nitro x1 which resolves his pain within 3 to 5 minutes. He early this morning around 4:40a he developed chest pain which radiated down into bilateral arms took a nitro tablet, and then felt recurrent pain 1 hour later, took a second nitro tablet and then again had similar presentation with pain recurring 1 hour later and took his 3rd nitro tablet in the car on the way here to the ER. This morning he presents due to continued ongoing pain, found to have new ST wave depressions in lateral leads on EKG. 3 inches of Nitropaste is on his chest, and has been started on a heparin drip in the ER. Cardiology is consulted. He reports his anxiety is severely high in the ER. His is present with him at bedside. His pain is currently completely resolved. Allergies Allergy/AdvReac Type Severity Reaction Status Date / Time No Known Allergies Allergy Verified 05/21/20 07:36 Home Medications Home Medications Medication Instructions Recorded Confirmed Type aspirin 81 mg chewable tablet 1 tab PO DAILY tab 04/13/19 05/21/20 History vitamins A,C,S-fgwd-goxtxf 14,320 1 cap PO BID 04/13/19 05/21/20 History unit-226 mg-200 unit capsule atorvastatin 80 mg tablet 80 mg PO DAILY #90 tab 03/13/20 05/21/20 Rx clopidogrel 75 mg PO QAM #90 tab 03/19/20 05/21/20 Rx lisinopril 30 mg PO QAM #180 tab 03/19/20 05/21/20 Rx metoprolol succinate 100 mg 150 mg PO DAILY #135 tab 04/12/20 05/21/20 Rx tablet,extended release 24 hr nitroglycerin 0.4 mg sublingual 0.4 mg SL Q5M PRN #25 tab 05/02/20 05/21/20 Rx tablet cholecalciferol (vitamin D3) 50 50 mcg PO DAILY 05/18/20 05/21/20 History mcg (2,000 unit) capsule isosorbide mononitrate 120 mg 120 mg PO DAILY #90 tab 05/18/20 05/21/20 Rx tablet,extended release 24 hr Past Med/Surg History Medical History Abnormal liver function test Atypical chest pain CAD (coronary artery disease) Enlarged prostate without lower urinary tract symptoms (luts) Hx of sciatica Hypercholesterolemia Hypertension Osteoarthritis Surgical History History of foot surgery bilateral History of herniorrhaphy "Bilateral" 1971 Hx of tonsillectomy S/P CABG (coronary artery bypass graft) 3 vessel Family History (Updated 11/18/19 @ 15:33 by Dennise Nunes) Father Acute myocardial infarction at age 44 Mother Coronary heart disease Diabetes Brother Hypertension Social History Smoking Status: Never smoker Second Hand Exposure: No; Do You Dip or Chew Tobacco: No; Tobacco Cessation Education Requested by Patient: No Hx Alcohol Use: No Hx Substance Use: No Preferred Language: Andorran Communication Ability: Effective Sugar Refiner Required: No Beliefs That Will Affect Care: None marital status: Current Living Situation: Spouse Feels Safe at Home: Yes Assistive Devices: None Review of Systems Review of Systems: Constitutional: No fever, sweats or chills Eyes: No diplopia, no worsening or blurred vision ENT: normal hearing, no trouble swallowing Respiratory: No cough, sputum, dyspnea at rest or on exertion Cardiovascular:As per HPI, no palpitations Abdomen: No pain, nausea, vomiting, diarrhea or constipation Musculoskeletal: No joint pain, calf pain, swelling Neurologic: No weakness, numbness/tingling, or balance problems Psychiatric: + anxiety, no depression Skin: No rash or itch Physical Exam Physical Exam: General: awake, alert, no apparent distress Head: Normocephalic, atraumatic ENT: PERRL, EOMI, no pharyngeal exudate, mucous membranes moist Chest: Clear to auscultation, on room air, no adventitious breath sounds, + 3in nitropaste on chest Cardiac: Regular rate and rhythm, no murmur, no JVD, normal peripheral pulses, good capillary refill Abdominal: NABS x 4 quadrants, soft, nondistended, nontender to palpation, no rebound or guarding Extremities: Normal inspection, no peripheral edema or erythema, calfs nontender to palpation Psych: Normal mood and affect Neuro: AAO x 3, strength intact bilaterally and rated 5/5, no motor deficits, speech is clear, no peripheral sensory deficits Results & Data Results & Data ([facility]) Vital Signs (Past 12 Hours) Vital Signs Temp Pulse Pulse Resp BP BP Pulse Ox 05/21/20 07:52 75 22 184/98 H 95 05/21/20 07:14 36.8 C 79 18 187/110 H 95 Laboratory Results 05/21/20 05/21/20 05/21/20 Range/Units 07:30 07:30 07:30 WBC 8.23 (4.8-10.8) K/uL RBC 4.84 (4.7-6.1) M/uL Hgb 14.8 (14.0-18.0) g/dL Hct 44.3 (42-52) % MCV 91.5 (80-100) fL MCH 30.6 (25-34) pg MCHC 33.4 (32-36) g/dL RDW Std Deviation 47.6 H (36.4-46.3) fL RDW Coeff of Meghan 14.2 (11.5-14.5) % Plt Count 181 (130-400) K/uL MPV 9.9 (7.4-10.4) fL Immature Gran % (Auto) 0.1 % Neut % (Auto) 64.6 % Lymph % (Auto) 22.8 % Millard % (Auto) 10.2 % Eos % (Auto) 1.9 % Baso % (Auto) 0.4 % Neut # (Auto) 5.31 (1.4-6.5) K/uL Lymph # (Auto) 1.88 (1.2-3.4) K/uL Millard # (Auto) 0.84 H (0.11-0.59) K/uL Eos # (Auto) 0.16 (0-0.5) K/uL Baso # (Auto) 0.03 (0-0.2) K/uL Immature Gran # (Auto) 0.01 (0.00-0.02) K/uL PT 11.0 (9.0-12.0) Seconds INR 1.0 (0.9-1.1) APTT 27.6 (21.0-31.0) Seconds PTT Ratio 1.0 Sodium 138 (136-145) mmol/L Potassium 3.9 (3.5-5.1) mmol/L Chloride 108 H (98-107) mmol/L Carbon Dioxide 24 (21-32) mmol/L Anion Gap 7.0 (3-11) BUN 17 (7-18) mg/dl Creatinine 0.93 (0.6-1.4) mg/dl Est Cr Clr Drug Dosing 99.3 ml/min Est GFR ( Amer) 98.8 Est GFR (Non-Af Amer) 85.2 BUN/Creatinine Ratio 18.6 (10-20) Glucose 121 H (70-99) mg/dl Calcium 9.6 (8.5-10.1) mg/dl Total Bilirubin 1.1 H (0.2-1) mg/dl AST 18 (15-37) U/L ALT 39 (12-78) U/L Alkaline Phosphatase 60 (45-117) U/L Troponin I 0.200 H* (0-0.045) ng/ml Total Protein 7.6 (6.4-8.2) gm/dl Albumin 3.6 (3.4-5.0) gm/dl Globulin 4.0 (2.5-4.0) gm/dl Albumin/Globulin Ratio 0.9 (0.9-2) Lipase 147 (73-393) U/L Diagnostic Findings XR chest 1V portable CLINICAL HISTORY: Atypical chest pain. COMPARISON STUDY: Chest radiograph March 17, 2020. FINDINGS: There are median sternotomy wires. No pneumothorax or pleural effusion is noted. There is no consolidation. Eldon B lines are noted. There is interstitial thickening. Mild cardiomegaly is noted. IMPRESSION: Interstitial pulmonary edema. ACT 112: Negative or not required by law. Electronically signed by: Aryan Schreiber M.D. 05/21/2020 8:43 AM ECG Additional Comments: Sinus rhythm with occasional Premature ventricular complexes Possible Left atrial enlargement Incomplete right bundle branch block Marked ST abnormality, possible lateral subendocardial injury Abnormal ECG When compared with ECG of 19-MAR-2020 06:24, ST now depressed in Lateral leads Nonspecific T wave abnormality, improved in Inferior leads Nonspecific T wave abnormality no longer evident in Lateral leads Vent. rate 73 BPM KS interval 168 ms QRS duration 96 ms QT/QTc 430/473 ms P-R-T axes 15 -8 76 Code Status & VTE Plan Code Status Full code VTE Prophylaxis Plan VTE Prophylaxis will be ordered: Yes Supervising Physician Co-Signing Physician Notes PA Supervision Note: I personally saw and examined the patient. I verified all talbert points and agree with MARYCARMEN Figueroa with the following exceptions and/or additions: This patient is a 64-year-old male with a history of severe CAD status post CABG and recent NSTEMI in 03/2020 medically managed due to complicated lesion in circumflex. He presents with worsening frequency of angina while at rest over the last several days that woke him from sleep this morning was relieved with nitro but returned on 3 separate occasions. Troponin in the ER was mildly elevated 0.2 but he remained chest pain-free. He denies nausea or shortness of breath, no abdominal pain or any other complaints. History and ROS reviewed as above Vitals reviewed Gen: AAOx3, NAD HEENT: Anicteric sclerae, EOMI CV: RRR no mgr nl S1S2 Pulm: CTAB no wcr Abd: +BS soft NT ND no masses or hernias Ext: Trace pitting edema of the legs to the mid tibia bilaterally Skin: No rashes, warm/dry Neuro: Full strength throughout Laboratory values, ECG, imaging studies reviewed 64-year-old male with severe CAD here with unstable angina and NSTEMI with ECG changes of ST depression in the lateral leads. Due to complex nature cardiac lesion, will continue medical management at this time as per recommendation of cardiology. I discussed the case with emergency services dispatcher. Continue aspirin, Plavix, metoprolol, recently increased dose of isosorbide 120 mg daily, lisinopril, high-dose atorvastatin, and add amlodipine for antianginal and blood pressure control Heparin drip started in the ER will continue for 48 hours Trend serial troponin check limited echo as per cardiology recommendation Appreciate cardiology consultation If has stuttering chest pain or chest pain is not improving, would start nitroglycerin drip and plan to most likely transfer out to [facility] as per patient's request as his brother is on the [employer] printed circuit boards there. PG Care Time/CCT Total # of Minutes Spent Total Time Spent with Patient: Total time spent is greater than 50% in coordination of care (as documented) at patient's floor/unit and/or counseling patient: Coding Level of Care Code 53996 Initial Inpt Care Lvl 3 Diagnoses Exertional angina I20.8 NSTEMI (non-ST elevated myocardial infarction) I21.4 CAD (coronary artery disease) I25.700 Associated angina: with unstable angina Coronary Disease-Associated Artery/Lesion type: bypass graft [place] vs. transplanted heart: [place] heart S/P CABG (coronary artery bypass graft) Z95.1 Hypertension I10 Hypercholesterolemia E78.00 Osteoarthritis M19.90 (1) CAD (coronary artery disease) Associated angina: with unstable angina Coronary Disease-Associated Artery/Lesion type: bypass graft [place] vs. transplanted heart: [place] heart Qualified Code(s): I25.700 - Atherosclerosis of coronary artery bypass graft(s), unspecified, with unstable angina pectoris
--- NOTE | 2020-05-21 08:44 | XRay Report ---
XR chest 1V portable CLINICAL HISTORY: Atypical chest pain. COMPARISON STUDY: Chest radiograph March 17, 2020. FINDINGS: There are median sternotomy wires. No pneumothorax or pleural effusion is noted. There is n o consolidation. Eldon B lines are noted. There is interstitial thickening. Mild cardiomegaly is not ed. IMPRESSION: Interstitial pulmonary edema. ACT 112: Negative or not required by law. Electronically signed by: Aryan Schreiber M.D. 05/21/2020 8:43 AM
[2020-05-21] MEDS: amLODIPine BESYLATE 5 MG TAB PO SCH (09:24)
--- NOTE | 2020-05-21 09:57 | Cardiology Consultation ---
Date of Consultation May 21, 2020 Assessment & Plan (1) Unstable angina: (2) CAD (coronary artery disease): (3) S/P CABG (coronary artery bypass graft): (4) Hypertension: (5) Hypercholesterolemia: ASSESSMENT/PLAN: 1. Unstable angina: He has known multivessel CAD, including severe CAD of LMCA into circumflex with occluded SVG to circumflex. Presented with unstable angina and minimally elevated troponins. Check serial troponins. Recommended heparin drip. Continue aspirin and Plavix. Continue beta-deon. Consider increasing metoprolol succinate to 200 mg daily during this hospitalization. Continue nitrate therapy. Initiate amlodipine 2.5 mg daily as he is hypertensive. Control blood pressure. Repeat limited echo to evaluate LV systolic function and wall motion. He was chest pain-free at the time of our visit this morning. We discussed that if he requires intervention, would refer to a facility with CT surgery capabilities. He wishes to go to [facility] if needed but he and his would like to continue with medical therapy given the complexity of his current CAD. 2. CAD s/p CABG x 3: Unstable angina as above. Continue medical therapy with high-intensity statin therapy, beta-deon, nitrate, aspirin, Plavix. No plan for cardiac catheterization at this time unless he continues to have angina despite titration of medical therapy. 3. Hypertension: Blood pressure was significantly elevated this morning. Add amlodipine 2.5 mg daily and titrate if necessary. Consider increasing metoprolol to 200 mg daily as mentioned above. Continue other antihypertensive agents. 4. Dyslipidemia: Continue high-intensity statin therapy. 5. Disposition: Recommend inpatient admission. Discussed patient care with Dr. Rehman of the Emergency Department and Dr. Gonzales of the admitting hospitalist service. I will be away from hospital tomorrow by Dr. Nelson will be available to assist in his cardiology care. Highly complex medical issues. Thank you for allowing me to participate in the care of your patient. Please call for any other questions or concerns. Sincerely, Brayan Mcarthur M.D. History of Present Illness Reason for Consultation: Angina Requesting Physician: Dr. Rehman and Dr. Gonzales Attending Physician: Dr. Gonzales History of Present Illness Mr. Feliz is a pleasant 64-year-old gentleman with a history significant for CAD s/p CABG x 3 (CARBONE to LAD; SVG to Cx OM; SVG to PDA[place] [facility] [place] hypertens[place], and dyslipidemia. Angina consist of chest tightness across his chest involving bilateral shoulders/arms. He was hospitalized on 03/17/2020 with NSTEMI with peak troponin of 16.4. Medical therapy was recommended given difficult/high risk PCI, if attempted. He has had the following studies/procedures: 1. [place] [facility] [place] LMCA 80%. Mid LAD 80%. Distal LAD 80%. OM1 80%. Dominant RCA. Proximal RCA 50%. Mid RCA 60%. Distal RCA 99%. LVEDP 10. 2. [place] [facility] [place] CARBONE to LAD. SVG to PDA. SVG to OM. 3. Cardiac catheterization 03/17/2020 [facility]: Distal LM CA 90% and heavily calcified. Mid LAD 100%. Circumflex with retrograde takeoff from the LMCA. Ostial circumflex 95% with disease extending into the mid segment across takeoff of OM1, OM2. Medium OM2 proximal 50%. Dominant RCA. Heavily calcified. Subtotal early to mid RCA occlusion. Late mid RCA 100%. RV branch fills via right to right collaterals. CARBONE to LAD patent. Mid to distal LAD after anastomosis was small vessel with moderate diffuse disease and gives [id number] collaterals to right PL, which retro fills distal RCA. SVG to circumflex 100%. SVG to PDA diffuse 90% involving total length of vein graft with ТАТЬЯНА I to II flow. Acute culprit lesion was felt to be complex ostial to mid circumflex disease and intervention was felt to be difficult, and likely requiring atherectomy of the LMCA and stenting across multiple branches. If PCI attempted, it was recommended for referral to tertiary care center for high risk/complex PCI. 4. Echo 03/17/2020: Normal LV size and systolic function. EF 55-60%. Possible mild hypokinesis involving the inferolateral wall. Moderate LVH. Mild MR. Normal RVSP . To the emergency department this morning with chest discomfort. He was last seen in the office on 05/18/2020 and has had improving symptoms at that time until this morning. On 05/18/2020, isosorbide mononitrate to 120 mg daily for anginal symptoms with more strenuous activity. Unfortunately, this morning at approximately 4:30 a.m. when he woke up to use the restroom, he noted his typical anginal symptoms. Angina consist of chest pain across his chest from [id number] involving bilateral arms, with left arm worse than right arm. He does not recall diaphoresis or shortness of breath. He took a nitroglycerin and symptoms resolved within 5 minutes. At approximately 5:30 a.m., while resting, he once again had chest discomfort which resolved with nitroglycerin x1. At approximately 6:35 a.m., he had his third episode which once again resolved with nitroglycerin. He came to the emergency department and while sitting in the waiting room, had another episode. While here, he was noted to be hypertensive with initial blood pressure 140/80 but followed by elevated pressures as high as 192/102 mmHg. He was given nitroglycerin paste and his angina resolved. He denies fevers, chills, syncope, near-syncope, palpitations. He did have some shortness of breath yesterday throughout the day but denied orthopnea. He has chronic lower extremity edema in the left leg ever since vein harvest for CABG in 2018. He denies bleeding such as melena, hematochezia, or hematuria. At the time of our visit today, at approximately 8:15 a.m., he was chest pain- free. Review of systems: As above. Review of systems otherwise negative/unremarkable. Family history: Father at the age of 44 from [place]. Mother had CAD. Social history: Denies tobacco, alcohol, or drug abuse. He lives at home with his , Cristin, they have 3 sons. He has grandchildren. 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 His was present with him in the emergency department. Allergies Allergy/AdvReac Type Severity Reaction Status Date / Time No Known Allergies Allergy Verified 05/21/20 07:36 Home Medications Home Medications Medication Instructions Recorded Confirmed Type aspirin 81 mg chewable tablet 1 tab PO DAILY tab 04/13/19 05/21/20 History vitamins A,C,V-nhjr-yaiyir 14,320 1 cap PO BID 04/13/19 05/21/20 History unit-226 mg-200 unit capsule atorvastatin 80 mg tablet 80 mg PO DAILY #90 tab 03/13/20 05/21/20 Rx clopidogrel 75 mg PO QAM #90 tab 03/19/20 05/21/20 Rx lisinopril 30 mg PO QAM #180 tab 03/19/20 05/21/20 Rx metoprolol succinate 100 mg 150 mg PO DAILY #135 tab 04/12/20 05/21/20 Rx tablet,extended release 24 hr nitroglycerin 0.4 mg sublingual 0.4 mg SL Q5M PRN #25 tab 05/02/20 05/21/20 Rx tablet cholecalciferol (vitamin D3) 50 50 mcg PO DAILY 05/18/20 05/21/20 History mcg (2,000 unit) capsule isosorbide mononitrate 120 mg 120 mg PO DAILY #90 tab 05/18/20 05/21/20 Rx tablet,extended release 24 hr Patient History Medical History Abnormal liver function test Atypical chest pain CAD (coronary artery disease) Enlarged prostate without lower urinary tract symptoms (luts) Hx of sciatica Hypercholesterolemia Hypertension Osteoarthritis Surgical History History of foot surgery bilateral History of herniorrhaphy "Bilateral" 1971 Hx of tonsillectomy S/P CABG (coronary artery bypass graft) 3 vessel Family History (Updated 11/18/19 @ 15:33 by Dennise Nunes) Father Acute myocardial infarction at age 44 Mother Coronary heart disease Diabetes Brother Hypertension Social History Smoking Status: Never smoker Second Hand Exposure: No; Do You Dip or Chew Tobacco: No; Tobacco Cessation Education Requested by Patient: No Hx Alcohol Use: No Hx Substance Use: No Preferred Language: Scottish Communication Ability: Effective Vice Chancellor Required: No Beliefs That Will Affect Care: None marital status: Current Living Situation: Spouse Feels Safe at Home: Yes Assistive Devices: None Physical Exam Physical Exam: Gen.: No acute distress. Alert and oriented. HEENT: Anicteric sclera. Neck: Thick neck. No appreciable JVD. No bruit. Normal carotid upstrokes bilaterally. Cardiac: PMI was nonpalpable. No ventricular heave. Regular. No ectopy. Normal S1-S2. No murmurs, rubs, or gallops. Pulmonary: Clear to auscultation bilaterally without wheezes, rales, or rhonchi. Abdomen: Soft, nontender, nondistended, with normoactive bowel sounds. No bruits noted. Extremities: 2+ radial pulses bilaterally. 2+ posterior tibialis pulses bilaterally. Trace right lower extremity edema. 1+ left lower extremity edema (s/p vein harvest). No cyanosis. Psychiatric: Affect appears appropriate. Results & Data ([facility]) Vital Signs (Past 12 Hours) Vital Signs Temp Pulse Pulse Resp BP BP Pulse Ox 05/21/20 09:44 68 24 130/72 93 05/21/20 08:56 80 18 192/102 H 95 05/21/20 07:52 75 22 184/98 H 95 05/21/20 07:14 36.8 C 79 18 187/110 H 95 Laboratory Results Laboratory Results - last 24 hr 05/21/20 05/21/20 05/21/20 07:30 07:30 07:30 WBC 8.23 RBC 4.84 Hgb 14.8 Hct 44.3 MCV 91.5 MCH 30.6 MCHC 33.4 RDW Std Deviation 47.6 H RDW Coeff of Meghan 14.2 Plt Count 181 MPV 9.9 Immature Gran % (Auto) 0.1 Neut % (Auto) 64.6 Lymph % (Auto) 22.8 [place] % (Auto) 10.2 Eos % (Auto) 1.9 Baso % (Auto) 0.4 Neut # (Auto) 5.31 Lymph # (Auto) 1.88 [place] # (Auto) 0.84 H Eos # (Auto) 0.16 Baso # (Auto) 0.03 Immature Gran # (Auto) 0.01 PT 11.0 INR 1.0 APTT 27.6 PTT Ratio 1.0 Sodium 138 Potassium 3.9 Chloride 108 H Carbon Dioxide 24 Anion Gap 7.0 BUN 17 Creatinine 0.93 Est Cr Clr Drug Dosing 99.3 Est GFR ( Amer) 98.8 Est GFR (Non-Af Amer) 85.2 BUN/Creatinine Ratio 18.6 Glucose 121 H Calcium 9.6 Total Bilirubin 1.1 H AST 18 ALT 39 Alkaline Phosphatase 60 Troponin I 0.200 H* Total Protein 7.6 Albumin 3.6 Globulin 4.0 Albumin/Globulin Ratio 0.9 Lipase 147 05/21/20 12:26 WBC RBC Hgb Hct MCV MCH MCHC RDW Std Deviation RDW Coeff of Meghan Plt Count MPV Immature Gran % (Auto) Neut % (Auto) Lymph % (Auto) [place] % (Auto) Eos % (Auto) Baso % (Auto) Neut # (Auto) Lymph # (Auto) [place] # (Auto) Eos # (Auto) Baso # (Auto) Immature Gran # (Auto) PT INR APTT PTT Ratio Sodium Potassium Chloride Carbon Dioxide Anion Gap BUN Creatinine Est Cr Clr Drug Dosing Est GFR ( Amer) Est GFR (Non-Af Amer) BUN/Creatinine Ratio Glucose Calcium Total Bilirubin AST ALT Alkaline Phosphatase Troponin I Pending Total Protein Albumin Globulin Albumin/Globulin Ratio Lipase Diagnostic Findings On 05/21/2020, chart, labs, ECGs personally reviewed. ECG 03/19/2020 at 6:24 a.m.: Sinus bradycardia with PVCs at 58 beats per minute. Nonspecific lateral T-wave abnormality. ECG 05/21/2020 at 8:42 a.m.: Sinus rhythm 77 beats per minute. Nonspecific ST abnormality. Improvement in lateral T-wave abnormality seen on 03/19/2020 ECG ECG 05/21/2020 at 7:16 a.m.: Sinus rhythm with PVC [address] depression in the lateral leads, new compared to 03/19/2020 ECG. Chest x-ray 03/21/2020: images were personally reviewed. Prominent vascular markings. Medications Administered Current Inpatient Medications Acetaminophen (Acetaminophen 325 Mg Tab) 650 mg PO Q4H PRN PRN Reason: Moderate Pain Stop: 06/20/20 10:23 Amlodipine Besylate (Amlodipine Besylate 5 Mg Tab) 2.5 mg PO QAM [facility] Stop: 06/20/20 09:15 Last Admin: 05/21/20 09:24 Dose: 2.5 mg Documented by: Aspirin (Aspirin 81 Mg Ectab) 81 mg PO DAILY [facility] Stop: 06/21/20 08:59 Atorvastatin Calcium (Atorvastatin 40 Mg Tab) 80 mg PO DAILY [facility] Stop: 06/21/20 08:59 Clopidogrel Bisulfate (Clopidogrel Bisulfate 75 Mg Tab) 75 mg PO QAM [facility] Stop: 06/21/20 08:59 Heparin Sodium/Dextrose (Heparin Sodium/Dextrose) 25,000 units in 500 mls @ 32 mls/hr IV .[id number] [facility]; Protocol Stop: 06/20/20 07:59 Last Admin: 05/21/20 08:27 Dose: 1,600 units/hr, 32 mls/hr Documented by: Isosorbide Mononitrate (Isosorbide [place] Extended Rel 60 Mg Tabcr) 120 mg PO DAILY [facility] Stop: 06/21/20 08:59 Lisinopril (Lisinopril 10 Mg Tab) 30 mg PO QAM [facility] Stop: 06/21/20 08:59 Metoprolol Succinate (Metoprolol Succ 50mg Ext Rel Tab) 150 mg PO DAILY [facility] Stop: 06/21/20 08:59 Morphine Sulfate (Morphine Sulfate 4 Mg/Ml 1 Ml Carp\\Vial) 4 mg IV Q2H PRN PRN Reason: Pain Stop: 06/04/20 10:23 Multivitamins/Minerals (Cerovite Adv Formula Tab) 1 tab PO DAILY [facility] Stop: 06/21/20 08:59 Nitroglycerin (Nitroglycerin Sl 0.4 Mg/Tab Tab) 0.4 mg SL Q5M PRN PRN Reason: chest pain Stop: 06/20/20 10:23 Ondansetron HCl (Ondansetron Inj 2 Mg/Ml 2 Ml Vial) 4 mg IV Q4H PRN PRN Reason: Nausea And Vomiting Stop: 06/20/20 10:23 Vitamin D (Cholecalciferol 1,000 Units 25 Mcg Tab) 2,000 units PO DAILY [facility] Stop: 06/21/20 08:59 PG Care Time/CCT Total # of Minutes Spent Total Time Spent with Patient: Total time spent is greater than 50% in coordination of care (as documented) at patient's floor/unit and/or counseling patient: Coding Level of Care Code 41664 Initial Inpt Care Lvl 3 Diagnoses Unstable angina I20.0 CAD (coronary artery disease) I25.700 Associated angina: with unstable angina Coronary Disease-Associated Artery/Lesion type: bypass graft [place] vs. transplanted heart: [place] heart S/P CABG (coronary artery bypass graft) Z95.1 Hypertension I10 Hypercholesterolemia E78.00 (1) CAD (coronary artery disease) Associated angina: with unstable angina Coronary Disease-Associated Artery/Lesion type: bypass graft [place] vs. transplanted heart: [place] heart Qualified Code(s): I25.700 - Atherosclerosis of coronary artery bypass graft(s), unspecified, with unstable angina pectoris
[2020-05-21] MEDS ORDERED: ONDANSETRON INJ 2 MG/ML 2 ML VIAL IV PRN (10:24)
[2020-05-21] MEDS ORDERED: ACETAMINOPHEN 325 MG TAB PO PRN (10:24)
[2020-05-21] MEDS ORDERED: NITROGLYCERIN SL 0.4 MG/TAB TAB SL PRN (10:24)
[2020-05-21] MEDS ORDERED: MoRPHine SULFATE 4 MG/ML 1 ML CARP\\VIAL IV PRN (10:24)
--- NOTE | 2020-05-21 11:11 | XCELERA ---
[id number]
--- NOTE | 2020-05-21 12:54 | Electrocardiogram Report ---
Test Reason : Blood Pressure : / mmHG Vent. Rate : 073 BPM Atrial Rate : 073 BPM P-R Int : 168 ms QRS Dur : 096 ms QT Int : 430 ms P-R-T Axes : 015 -08 076 degrees QTc Int : 473 ms Sinus rhythm with occasional Premature ventricular complexes Left atrial enlargement Incomplete right bundle branch block ST depression in Lateral leads , consider ischemia Abnormal ECG When compared with ECG of 19-MAR-2020 06:24, ST now depressed in Lateral leads Confirmed by Howie Nelson ([id number]) on 05/21/2020 12:54:04 PM Referred By: Confirmed By:Howie Nelson
--- NOTE | 2020-05-21 12:56 | Electrocardiogram Report ---
Test Reason : Blood Pressure : / mmHG Vent. Rate : 077 BPM Atrial Rate : 077 BPM P-R Int : 164 ms QRS Dur : 098 ms QT Int : 424 ms P-R-T Axes : 009 -15 038 degrees QTc Int : 479 ms Normal sinus rhythm Left atrial enlargement Nonspecific ST abnormality Lateral leads Abnormal ECG When compared with ECG of 21-MAY-2020 07:16, Premature ventricular complexes are no longer Present ST depression in Lateral leads much less pronounced Confirmed by Howie Nelson ([id number]) on 05/21/2020 12:56:00 PM Referred By: REFERRED SELF Confirmed By:Howie Nelson
[2020-05-21 14:41] LABS: Partial Thromboplastin Ratio 3.3
[2020-05-21 14:45] LABS: Partial Thromboplastin Time 91.5 Seconds (21.0-31.0)
[2020-05-21] MEDS: LORazepam 0.5 MG TAB PO PRN (20:53)
[2020-05-21 23:04] LABS: Partial Thromboplastin Ratio 1.9
[2020-05-21 23:09] LABS: Partial Thromboplastin Time 52.7 Seconds (21.0-31.0)
[2020-05-22] MEDS: HEPARIN SODIUM/DEXTROSE 25,000 UNITS/500 ML BAG IV SCH ×2 (02:14→19:06)
[2020-05-22 04:56] LABS: Hematocrit (blood only) 42.2 % (42-52); Mean Corpuscular Hemoglobin 30.2 pg (25-34); Mean Corpuscular Hgb Conc 33.2 g/dL (32-36); Mean Corpuscular Volume 90.9 fL (80-100); Mean Platelet Volume 9.7 fL (7.4-10.4); Platelet Count 166 K/uL (130-400); RDW Coefficient of Variation 14.3 % (11.5-14.5); RDW Standard Deviation 47.8 fL (36.4-46.3); Red Blood Count 4.64 M/uL (4.7-6.1)
[2020-05-22 05:24] LABS: Albumin Level 3.4 gm/dl (3.4-5.0); BUN Creatinine Ratio 17.5 (10-20); Calcium 8.8 mg/dl (8.5-10.1); Creatinine Clr Calc Pharmacy 126.5 ml/min; Est GFR (Non-African American) 96.7; Potassium 3.5 mmol/L (3.5-5.1)
[2020-05-22 05:26] LABS: Bilirubin,Total 1.3 mg/dl (0.2-1); Globulin 3.4 gm/dl (2.5-4.0); Total Protein 6.8 gm/dl (6.4-8.2)
[2020-05-22] MEDS: lisinopril 10 MG TAB PO SCH (08:04)
[2020-05-22] MEDS: ISOSORBIDE MONO EXTENDED REL 60 MG TABCR PO SCH (08:04)
[2020-05-22] MEDS: amLODIPine BESYLATE 5 MG TAB PO SCH (08:05)
[2020-05-22] MEDS: ASPIRIN 81 MG ECTAB PO SCH (08:05)
[2020-05-22] MEDS: ATORVASTATIN 40 MG TAB PO SCH (08:05)
[2020-05-22] MEDS: CLOPIDOGREL BISULFATE 75 MG TAB PO SCH (08:05)
[2020-05-22] MEDS: CHOLECALCIFEROL 1,000 UNITS 25 MCG TAB PO SCH (08:05)
[2020-05-22] MEDS: CEROVITE ADV FORMULA TAB PO SCH (08:05)
[2020-05-22 08:46] LABS: Partial Thromboplastin Ratio 2.2
[2020-05-22 08:48] LABS: Partial Thromboplastin Time 61.9 Seconds (21.0-31.0)
[2020-05-22] MEDS ORDERED: METOPROLOL SUCC 50MG EXT REL TAB PO SCH (09:00)
[2020-05-22] MEDS ORDERED: ISOSORBIDE MONO EXTENDED REL 60 MG TABCR PO SCH (09:00)
[2020-05-22] MEDS ORDERED: amLODIPine BESYLATE 5 MG TAB PO ONE (09:30)
--- NOTE | 2020-05-22 09:31 | Cardiology Progress Note ---
Date of Service May 22, 2020 Assessment & Plan (1) Unstable angina: (2) CAD (coronary artery disease): (3) S/P CABG (coronary artery bypass graft): (4) Hypertension: (5) Hypercholesterolemia: ASSESSMENT/PLAN: 1. Unstable angina: He has known multivessel CAD, including severe CAD of LMCA into circumflex with occluded SVG to circumflex. He presented yesterday with unstable angina and minimally elevated troponins. Repeat troponin this morning is pending. Repeat EKG also ordered. Limited echo yesterday showed preserved LV systolic function with no significant change compared to his last study in March. He has been chest pain free since admission. Amlodipine was initiated and was increased this morning by the Hospitalist service. Hopefully this will further improve his blood pressure. Would also consider increasing metoprolol succinate to 200 mg daily this admission. Continue heparin drip. Continue aspirin and Plavix. Continue nitrate therapy. Recommend that he get up and ambulate around the halls. 2. CAD s/p CABG x 3: Unstable angina as above. Continue medical therapy with high-intensity statin therapy, beta-deon, nitrate, aspirin, Plavix. No plan for cardiac catheterization at this time. 3. Hypertension: Blood pressure has improved but remains elevated. Amlodipine was increased to 5 mg this morning. Consider increasing metoprolol to 200 mg daily as mentioned above. Continue other antihypertensive agents. 4. Dyslipidemia: Continue high-intensity statin therapy. Admission and Anticipated Discharge Date Admission Date: May 21, 2020 Subjective He reports that he is feeling well this morning. He has had no further angina since hospital admission. He has only been able to ambulate to the bathroom but would like to be able to walk around the halls. He denies shortness of breath, palpitations, lightheadedness, or lower extremity edema. Review of Systems Review of Systems: All systems reviewed & are unremarkable except as noted in Subjective Physical Exam Physical Exam: Constitutional: Alert, oriented, in no acute distress HEENT: Head is atraumatic and normocephalic. EOMs intact. Sclera non-icteric. Face is symmetric. No perioral cyanosis. Mucous membranes moist Neck: Supple, no JVD Pulmonary: Normal respiratory effort, clear to auscultation throughout Cardiac: Regular rate and rhythm, normal S1 and S2, no gallops, no rubs, no mur murs Extremities: No edema. No clubbing or cyanosis. Pulses 2+ and symmetric Abdomen: Normal bowel sounds, soft, non-tender, no abdominal masses palpated Skin: Normal skin color, turgor, and pigmentation. No rash or skin lesions Neurological: Oriented to person, place, and time Results & Data ([facility]) Vital Signs (Past 12 Hours) Vital Signs Temp Pulse Resp BP Pulse Ox 05/22/20 04:00 98.1 F 68 21 159/89 H 98 05/22/20 00:00 98.1 F 62 17 149/84 H 98 Laboratory Results Laboratory Results WBC 7.30 K/uL (4.8-10.8) 05/22/20 04:38 RBC 4.64 M/uL (4.7-6.1) L 05/22/20 04:38 Hgb 14.0 g/dL (14.0-18.0) 05/22/20 04:38 Hct 42.2 % (42-52) 05/22/20 04:38 MCV 90.9 fL (80-100) 05/22/20 04:38 MCH 30.2 pg (25-34) 05/22/20 04:38 MCHC 33.2 g/dL (32-36) 05/22/20 04:38 RDW Std Deviation 47.8 fL (36.4-46.3) H 05/22/20 04:38 RDW Coeff of Meghan 14.3 % (11.5-14.5) 05/22/20 04:38 Plt Count 166 K/uL (130-400) 05/22/20 04:38 MPV 9.7 fL (7.4-10.4) 05/22/20 04:38 Immature Gran % (Auto) 0.1 % 05/21/20 07:30 Neut % (Auto) 64.6 % 05/21/20 07:30 Lymph % (Auto) 22.8 % 05/21/20 07:30 [place] % (Auto) 10.2 % 05/21/20 07:30 Eos % (Auto) 1.9 % 05/21/20 07:30 Baso % (Auto) 0.4 % 05/21/20 07:30 Neut # (Auto) 5.31 K/uL (1.4-6.5) 05/21/20 07:30 Lymph # (Auto) 1.88 K/uL (1.2-3.4) 05/21/20 07:30 [place] # (Auto) 0.84 K/uL (0.11-0.59) H 05/21/20 07:30 Eos # (Auto) 0.16 K/uL (0-0.5) 05/21/20 07:30 Baso # (Auto) 0.03 K/uL (0-0.2) 05/21/20 07:30 Immature Gran # (Auto) 0.01 K/uL (0.00-0.02) 05/21/20 07:30 PT 11.0 Seconds (9.0-12.0) 05/21/20 07:30 INR 1.0 (0.9-1.1) 05/21/20 07:30 APTT 61.9 Seconds (21.0-31.0) H* 05/22/20 08:15 PTT Ratio 2.2 05/22/20 08:15 Sodium 141 mmol/L (136-145) 05/22/20 04:38 Potassium 3.5 mmol/L (3.5-5.1) 05/22/20 04:38 Chloride 110 mmol/L (98-107) H 05/22/20 04:38 Carbon Dioxide 26 mmol/L (21-32) 05/22/20 04:38 Anion Gap 5.0 (3-11) 05/22/20 04:38 BUN 13 mg/dl (7-18) 05/22/20 04:38 Creatinine 0.73 mg/dl (0.6-1.4) 05/22/20 04:38 Est Cr Clr Drug Dosing 126.5 ml/min 05/22/20 04:38 Est GFR ( Amer) 112.0 05/22/20 04:38 Est GFR (Non-Af Amer) 96.7 05/22/20 04:38 BUN/Creatinine Ratio 17.5 (10-20) 05/22/20 04:38 Glucose 102 mg/dl (70-99) H 05/22/20 04:38 Calcium 8.8 mg/dl (8.5-10.1) 05/22/20 04:38 Total Bilirubin 1.3 mg/dl (0.2-1) H 05/22/20 04:38 AST 20 U/L (15-37) 05/22/20 04:38 ALT 35 U/L (12-78) 05/22/20 04:38 Alkaline Phosphatase 56 U/L (45-117) 05/22/20 04:38 Troponin I 0.534 ng/ml (0-0.045) H* 05/21/20 20:47 Total Protein 6.8 gm/dl (6.4-8.2) 05/22/20 04:38 Albumin 3.4 gm/dl (3.4-5.0) 05/22/20 04:38 Globulin 3.4 gm/dl (2.5-4.0) 05/22/20 04:38 Albumin/Globulin Ratio 1.0 (0.9-2) 05/22/20 04:38 Lipase 147 U/L (73-393) 05/21/20 07:30 Diagnostic Findings Echo 05/21/20: Grossly normal LV size. Normal LV systolic function, EF 60-65%, with a small area of distal lateral hypokinesis suggested in some views; otherwise, normal wall motion. Moderate LVH. Grade I diastolic dysfunction. Mild MR. Telemetry: Sinus in 60s-70s. PG Care Time/CCT Total # of Minutes Spent Total Time Spent with Patient: Total time spent is greater than 50% in coordination of care (as documented) at patient's floor/unit and/or counseling patient: Coding Level of Care Code 61966 Subseq Hosp Care Lvl 3 Diagnoses Unstable angina I20.0 CAD (coronary artery disease) I25.700 Associated angina: with unstable angina Coronary Disease-Associated Artery/Lesion type: bypass graft [place] vs. transplanted heart: [place] heart S/P CABG (coronary artery bypass graft) Z95.1 Hypertension I10 Hypercholesterolemia E78.00 (1) CAD (coronary artery disease) Associated angina: with unstable angina Coronary Disease-Associated Artery/Lesion type: bypass graft [place] vs. transplanted heart: [place] heart Qualified Code(s): I25.700 - Atherosclerosis of coronary artery bypass graft(s), unspecified, with unstable angina pectoris
--- NOTE | 2020-05-22 16:12 | Electrocardiogram Report ---
Test Reason : Blood Pressure : / mmHG Vent. Rate : 066 BPM Atrial Rate : 066 BPM P-R Int : 192 ms QRS Dur : 096 ms QT Int : 430 ms P-R-T Axes : 025 -23 050 degrees QTc Int : 450 ms Normal sinus rhythm Incomplete right bundle branch block Nonspecific ST abnormality Abnormal ECG When compared with ECG of 21-MAY-2020 08:42, No significant change was found Confirmed by Walter Guardado ([id number]) on 05/22/2020 4:12:24 PM Referred By: REFERRED SELF Confirmed By:Walter Guardado
--- NOTE | 2020-05-22 17:15 | Hospitalist Progress Note ---
Date of Service May 22, 2020 Assessment & Plan (1) Unstable angina: Patient presents with unstable angina which woke him from sleep on the day of admission. Serial troponin peaked at 0.5 is now back down again ECG on admission showed some ST wave depressions in lateral leads Echocardiogram with EF 60-65%, no wall motion abnormalities, moderate LVH Appreciate cardiology consultation-given complex nature of his known coronary artery stenoses, he would require transfer to tertiary care if intervention was needed. Decision was made to pursue medical management at this point in time and he is doing very well with this. -Added amlodipine and increase to 5 mg once daily today -We will increase metoprolol dose to 200 mg once daily as per cardiology recommendation today -Recently had his isosorbide increased to 120 mg daily -Continue home lisinopril, Plavix, aspirin -Continue heparin drip for at least 48 hours -He ambulated today without angina No events on telemetry-continue to monitor for arrhythmia Replace electrolytes as needed (2) NSTEMI (non-ST elevated myocardial infarction): As above with mildly elevated troponin in the setting of unstable angina -Continue medical management (3) CAD (coronary artery disease): Severe, as above (4) S/P CABG (coronary artery bypass graft): Noted (5) Hypertension: Blood pressures uncontrolled upon admission, now improved but have room for improvement Titrating up on metoprolol today as above Added amlodipine and titrated up to 5 mg daily as above -Continue home lisinopril 30 mg daily, Imdur 120 mg daily (6) Hypercholesterolemia: -Continue statin therapy with atorvastatin (7) Osteoarthritis: Continue Tylenol as needed Avoid NSAIDs in the setting of severe CAD (8) DVT prophylaxis: heparin gtt CODE: FULL Dispo: From home, plan for return home, possibly tomorrow Continued stay on PCU Admission and Anticipated Discharge Date Admission Date: May 21, 2020 Subjective Patient denies any chest pain at all today. He ambulated around the [place] 3 times without any symptoms. He denies shortness of breath. No nausea. He is tolerating p.o. Telemetry with normal sinus rhythm, no arrhythmias I discussed his care with cardiology Review of Systems Review of Systems: All systems reviewed & are unremarkable except as noted in HPI & below Physical Exam Constitutional: WD/WN, vitals as above Eyes: + anicteric sclerae ENMT: external ear and nose normal, oropharynx normal Neck: trachea midline, no thyromegaly Respiratory: normal respiratory effort, lungs clear to auscultation Cardiovascular: RRR, no murmur, no edema Chest (Breasts): Chest: normal inspection of chest Gastrointestinal (Abdomen): normal bowel sounds, soft, nontender, no hepatosplenomegaly Musculoskeletal: Extremities: extremities normal to inspection; no cyanosis an d no clubbing Skin: no rashes, warm and dry Neurologic: moves all extremities and awake; no focal motor deficits Psychiatric: A+Ox3, euthymic affect Lymphatic: no lymphedema Results & Data Results & Data ([facility]) Vital Signs (Past 12 Hours) Vital Signs Temp Pulse Resp BP Pulse Ox 05/22/20 16:23 72 20 140/73 94 05/22/20 16:00 36.8 C 05/22/20 14:00 73 22 05/22/20 11:29 74 20 132/80 05/22/20 11:20 36.6 C 69 24 154/84 H 98 05/22/20 09:58 36.8 C 05/22/20 09:23 73 19 156/92 H 05/22/20 07:53 70 24 176/107 H 98 Laboratory Results 05/22/20 05/22/20 05/22/20 Range/Units 08:15 04:38 04:38 WBC (4.8-10.8) K/uL RBC (4.7-6.1) M/uL Hgb (14.0-18.0) g/dL Hct (42-52) % MCV (80-100) fL MCH (25-34) pg MCHC (32-36) g/dL RDW Std Deviation (36.4-46.3) fL RDW Coeff of Meghan (11.5-14.5) % Plt Count (130-400) K/uL MPV (7.4-10.4) fL APTT 61.9 H* (21.0-31.0) Seconds PTT Ratio 2.2 Sodium 141 (136-145) mmol/L Potassium 3.5 (3.5-5.1) mmol/L Chloride 110 H (98-107) mmol/L Carbon Dioxide 26 (21-32) mmol/L Anion Gap 5.0 (3-11) BUN 13 (7-18) mg/dl Creatinine 0.73 (0.6-1.4) mg/dl Est Cr Clr Drug Dosing 126.5 ml/min Est GFR ( Amer) 112.0 Est GFR (Non-Af Amer) 96.7 BUN/Creatinine Ratio 17.5 (10-20) Glucose 102 H (70-99) mg/dl Calcium 8.8 (8.5-10.1) mg/dl Total Bilirubin 1.3 H (0.2-1) mg/dl AST 20 (15-37) U/L ALT 35 (12-78) U/L Alkaline Phosphatase 56 (45-117) U/L Troponin I 0.368 H* (0-0.045) ng/ml Total Protein 6.8 (6.4-8.2) gm/dl Albumin 3.4 (3.4-5.0) gm/dl Globulin 3.4 (2.5-4.0) gm/dl Albumin/Globulin Ratio 1.0 (0.9-2) 05/22/20 05/21/20 05/21/20 Range/Units 04:38 22:16 20:47 WBC 7.30 (4.8-10.8) K/uL RBC 4.64 L (4.7-6.1) M/uL Hgb 14.0 (14.0-18.0) g/dL Hct 42.2 (42-52) % MCV 90.9 (80-100) fL MCH 30.2 (25-34) pg MCHC 33.2 (32-36) g/dL RDW Std Deviation 47.8 H (36.4-46.3) fL RDW Coeff of Meghan 14.3 (11.5-14.5) % Plt Count 166 (130-400) K/uL MPV 9.7 (7.4-10.4) fL APTT 52.7 H* (21.0-31.0) Seconds PTT Ratio 1.9 Sodium (136-145) mmol/L Potassium (3.5-5.1) mmol/L Chloride (98-107) mmol/L Carbon Dioxide (21-32) mmol/L Anion Gap (3-11) BUN (7-18) mg/dl Creatinine (0.6-1.4) mg/dl Est Cr Clr Drug Dosing ml/min Est GFR ( Amer) Est GFR (Non-Af Amer) BUN/Creatinine Ratio (10-20) Glucose (70-99) mg/dl Calcium (8.5-10.1) mg/dl Total Bilirubin (0.2-1) mg/dl AST (15-37) U/L ALT (12-78) U/L Alkaline Phosphatase (45-117) U/L Troponin I 0.534 H* (0-0.045) ng/ml Total Protein (6.4-8.2) gm/dl Albumin (3.4-5.0) gm/dl Globulin (2.5-4.0) gm/dl Albumin/Globulin Ratio (0.9-2) ECG Additional Comments: ECG on 05/22 with normal sinus rhythm, incomplete right bundle branch block, nonspecific ST abnormality with mild ST depressions in lateral leads, unchanged from previous PG Care Time/CCT Total # of Minutes Spent Total Time Spent with Patient: Total time spent is greater than 50% in coordination of care (as documented) at patient's floor/unit and/or counseling patient: Coding Level of Care Code 20729 Subseq Hosp Care Lvl 3 Diagnoses Unstable angina I20.0 NSTEMI (non-ST elevated myocardial infarction) I21.4 CAD (coronary artery disease) I25.700 Associated angina: with unstable angina Coronary Disease-Associated Artery/Lesion type: bypass graft [place] vs. transplanted heart: [place] heart S/P CABG (coronary artery bypass graft) Z95.1 Hypertension I10 Hypercholesterolemia E78.00 Osteoarthritis M19.90 DVT prophylaxis Z29.9 (1) CAD (coronary artery disease) Associated angina: with unstable angina Coronary Disease-Associated Artery/Lesion type: bypass graft [place] vs. transplanted heart: [place] heart Qualified Code(s): I25.700 - Atherosclerosis of coronary artery bypass graft(s), unspecified, with unstable angina pectoris
[2020-05-22] MEDS ORDERED: METOPROLOL SUCC 25MG EXT REL TAB PO ONE (17:45)
[2020-05-22] MEDS: LORazepam 0.5 MG TAB PO PRN (21:06)
[2020-05-23 04:46] LABS: Hematocrit (blood only) 42.3 % (42-52); Mean Corpuscular Hemoglobin 30.4 pg (25-34); Mean Corpuscular Hgb Conc 33.1 g/dL (32-36); Mean Platelet Volume 9.7 fL (7.4-10.4); Platelet Count 182 K/uL (130-400); RDW Coefficient of Variation 14.6 % (11.5-14.5); RDW Standard Deviation 49.2 fL (36.4-46.3); White Blood Count 7.77 K/uL (4.8-10.8)
[2020-05-23 05:07] LABS: Partial Thromboplastin Ratio 2.5
[2020-05-23 05:19] LABS: Albumin Level 3.5 gm/dl (3.4-5.0); BUN Creatinine Ratio 19.2 (10-20); Creatinine Clr Calc Pharmacy 108.1 ml/min; Est GFR (African American) 106.8; Est GFR (Non-African American) 92.1; Potassium 3.6 mmol/L (3.5-5.1)
[2020-05-23 05:22] LABS: Albumin Globulin Ratio 0.9 (0.9-2); Bilirubin,Total 1.1 mg/dl (0.2-1); Globulin 3.9 gm/dl (2.5-4.0); Total Protein 7.4 gm/dl (6.4-8.2)
[2020-05-23 05:41] LABS: Partial Thromboplastin Time 69.3 Seconds (21.0-31.0)
[2020-05-23] MEDS: HEPARIN SODIUM/DEXTROSE 25,000 UNITS/500 ML BAG IV SCH (08:03)
[2020-05-23 08:21] VITALS: O2SAT 96
[2020-05-23] MEDS: CHOLECALCIFEROL 1,000 UNITS 25 MCG TAB PO SCH (08:39)
[2020-05-23] MEDS: ASPIRIN 81 MG ECTAB PO SCH (08:39)
[2020-05-23] MEDS: ISOSORBIDE MONO EXTENDED REL 60 MG TABCR PO SCH (08:39)
[2020-05-23] MEDS: lisinopril 10 MG TAB PO SCH (08:40)
[2020-05-23] MEDS: CEROVITE ADV FORMULA TAB PO SCH (08:40)
[2020-05-23] MEDS: ATORVASTATIN 40 MG TAB PO SCH (08:40)
[2020-05-23] MEDS: CLOPIDOGREL BISULFATE 75 MG TAB PO SCH (08:40)
--- NOTE | 2020-05-23 08:41 | Cardiology Progress Note ---
Date of Service May 23, 2020 Assessment & Plan (1) Unstable angina: (2) CAD (coronary artery disease): (3) S/P CABG (coronary artery bypass graft): (4) Hypertension: (5) Hypercholesterolemia: ASSESSMENT/PLAN: 1. Unstable angina: He has known multivessel CAD, including severe CAD of LMCA into circumflex with occluded SVG to circumflex. Presented with unstable angina and minimally elevated troponins. He did not rule in for myocardial infarction with 0.534. No further angina with adjustment of his antianginal regimen. Continue amlodipine 5 mg daily. Continue metoprolol succinate 200 mg daily. Continue nitrate therapy. Continue to adjust antihypertensive regimen to opt imize blood pressure control. Continue aspirin and Plavix. 2. CAD s/p CABG x 3: Unstable angina as above. Resolved. Continue medical therapy with high-intensity statin therapy, beta-deon, nitrate, calcium channel deon, aspirin, Plavix. Continue medical therapy as PCI would be complex and high risk. If requires PCI, he prefers to go to [facility] as it would be recommended that he have it done at a place with CT surgery backup. 3. Hypertension: Blood pressure has improved but remains elevated. Increase lisinopril to 40 mg daily. Continue amlodipine which can be further titrated as an outpatient. Continue increased dose of metoprolol. 4. Dyslipidemia: Continue high-intensity statin therapy. 5. Disposition: Can be discharged today if no new issues. Recommend that he be followed up in Cardiology office in 1-2 weeks. My office will contact him with time and date of appointment. Plan of care discussed with Dr. Gonzales of the primary hospitalist service. Admission and Anticipated Discharge Date Admission Date: May 21, 2020 Subjective He was seen earlier this morning. He denies any further angina. He is able to walk in the hallway several times without symptoms. Blood pressure has been mostly elevated. He is tolerating titration of his antihypertensive agents. He denies shortness of breath, syncope, near-syncope, palpitations, edema, or bleeding. He was unaccompanied in his hospital room. Review of systems: As above. Physical Exam Physical Exam: Gen.: No acute distress. Alert and oriented. HEENT: Anicteric sclera. Neck: Thick neck. No appreciable JVD. Cardiac: Regular. No ectopy. Normal S1-S2. No murmurs, rubs, or gallops. Pulmonary: Clear to auscultation bilaterally without wheezes, rales, or rhonchi. Abdomen: Soft, nontender, nondistended, with normoactive bowel sounds. No bruits noted. Extremities: Trace bilateral lower extremity edema. (s/p left lower extremity vein harvest). No cyanosis. Psychiatric: Affect appears appropriate. Results & Data ([facility]) Vital Signs (Past 12 Hours) Vital Signs Temp Pulse Resp BP Pulse Ox 05/23/20 08:21 36.5 C 72 19 169/86 H 96 05/23/20 04:00 36.5 C 69 20 138/69 97 05/22/20 23:59 36.5 C 59 L 16 155/88 H 95 Laboratory Results Laboratory Results - last 24 hr 05/22/20 05/22/20 05/23/20 04:38 08:15 04:17 WBC RBC Hgb Hct MCV MCH MCHC RDW Std Deviation RDW Coeff of Meghan Plt Count MPV APTT 61.9 H* 69.3 H* PTT Ratio 2.2 2.5 Sodium Potassium Chloride Carbon Dioxide Anion Gap BUN Creatinine Est Cr Clr Drug Dosing Est GFR ( Amer) Est GFR (Non-Af Amer) BUN/Creatinine Ratio Glucose Calcium Total Bilirubin AST ALT Alkaline Phosphatase Troponin I 0.368 H* Total Protein Albumin Globulin Albumin/Globulin Ratio 05/23/20 05/23/20 04:17 04:17 WBC 7.77 RBC 4.60 L Hgb 14.0 Hct 42.3 MCV 92.0 MCH 30.4 MCHC 33.1 RDW Std Deviation 49.2 H RDW Coeff of Meghan 14.6 H Plt Count 182 MPV 9.7 APTT PTT Ratio Sodium 141 Potassium 3.6 Chloride 110 H Carbon Dioxide 25 Anion Gap 6.0 BUN 16 Creatinine 0.82 Est Cr Clr Drug Dosing 108.1 Est GFR ( Amer) 106.8 Est GFR (Non-Af Amer) 92.1 BUN/Creatinine Ratio 19.2 Glucose 106 H Calcium 9.0 Total Bilirubin 1.1 H AST 18 ALT 38 Alkaline Phosphatase 58 Troponin I Total Protein 7.4 Albumin 3.5 Globulin 3.9 Albumin/Globulin Ratio 0.9 Diagnostic Findings Telemetry personally reviewed: No arrhythmia. Medications Administered Current Inpatient Medications Acetaminophen (Acetaminophen 325 Mg Tab) 650 mg PO Q4H PRN PRN Reason: Moderate Pain Stop: 06/20/20 10:23 Amlodipine Besylate (Amlodipine Besylate 5 Mg Tab) [facility] Stop: 06/22/20 08:59 Aspirin (Aspirin 81 Mg Ectab) 81 mg PO DAILY [facility] Stop: 06/21/20 08:59 Last Admin: 05/22/20 08:05 Dose: 81 mg Documented by: Atorvastatin Calcium (Atorvastatin 40 Mg Tab) 80 mg PO DAILY [facility] Stop: 06/21/20 08:59 Last Admin: 05/22/20 08:05 Dose: 80 mg Documented by: Clopidogrel Bisulfate (Clopidogrel Bisulfate 75 Mg Tab) 75 mg PO QAM [facility] Stop: 06/21/20 08:59 Last Admin: 05/22/20 08:05 Dose: 75 mg Documented by: Heparin Sodium/Dextrose (Heparin Sodium/Dextrose) 25,000 units in 500 mls @ 26 mls/hr IV .[id number] [facility]; Protocol Stop: 06/20/20 07:59 Last Admin: 05/23/20 08:03 Dose: Not Given Documented by: Isosorbide Mononitrate (Isosorbide [place] Extended Rel 60 Mg Tabcr) 120 mg PO DAILY [facility] Stop: 06/21/20 08:59 Last Admin: 05/22/20 08:04 Dose: 120 mg Documented by: Lisinopril (Lisinopril 10 Mg Tab) 30 mg PO QAM [facility] Stop: 06/21/20 08:59 Last Admin: 05/22/20 08:04 Dose: 30 mg Documented by: Lorazepam (Lorazepam 0.5 Mg Tab) 0.5 mg PO BID PRN PRN Reason: Anxiety Stop: 06/20/20 14:17 Last Admin: 05/22/20 21:06 Dose: 0.5 mg Documented by: Metoprolol Succinate (Metoprolol Succ 50mg Ext Rel Tab) 200 mg PO DAILY [facility] Stop: 06/22/20 08:59 Morphine Sulfate (Morphine Sulfate 4 Mg/Ml 1 Ml Carp\Vial) 4 mg IV Q2H PRN PRN Reason: Pain Stop: 06/04/20 10:23 Multivitamins/Minerals (Cerovite Adv Formula Tab) 1 tab PO DAILY [facility] Stop: 06/21/20 08:59 Last Admin: 05/22/20 08:05 Dose: 1 tab Documented by: Nitroglycerin (Nitroglycerin Sl 0.4 Mg/Tab Tab) 0.4 mg SL Q5M PRN PRN Reason: chest pain Stop: 06/20/20 10:23 Ondansetron HCl (Ondansetron Inj 2 Mg/Ml 2 Ml Vial) 4 mg IV Q4H PRN PRN Reason: Nausea And Vomiting Stop: 06/20/20 10:23 Vitamin D (Cholecalciferol 1,000 Units 25 Mcg Tab) 2,000 units PO DAILY [facility] Stop: 06/21/20 08:59 Last Admin: 05/22/20 08:05 Dose: 2,000 units Documented by: PG Care Time/CCT Total # of Minutes Spent Total Time Spent with Patient: Total time spent is greater than 50% in coordination of care (as documented) at patient's floor/unit and/or counseling patient: Coding Level of Care Code 61278 Subseq Hosp Care Lvl 3 Diagnoses Unstable angina I20.0 CAD (coronary artery disease) I25.700 Associated angina: with unstable angina Coronary Disease-Associated Artery/Lesion type: bypass graft [place] vs. transplanted heart: [place] heart S/P CABG (coronary artery bypass graft) Z95.1 Hypertension I10 Hypercholesterolemia E78.00 (1) CAD (coronary artery disease) Associated angina: with unstable angina Coronary Disease-Associated Artery/Lesion type: bypass graft [place] vs. transplanted heart: [place] heart Qualified Code(s): I25.700 - Atherosclerosis of coronary artery bypass graft(s), unspecified, with unstable angina pectoris
[2020-05-23] MEDS ORDERED: METOPROLOL SUCC 50MG EXT REL TAB PO SCH (09:00)
[2020-05-23] MEDS ORDERED: amLODIPine BESYLATE 5 MG TAB PO SCH (09:00)
[2020-05-23] MEDS ORDERED: lisinopril 40 MG TAB PO SCH (09:00)
[2020-05-23] MEDS ORDERED: lisinopril 10 MG TAB PO ONE (10:30)
[2020-05-23 11:57] LABS: Partial Thromboplastin Ratio 1.4
[2020-05-23 12:02] VITALS: BP 164/77; TEMP 98.2
--- NOTE | 2020-05-23 12:41 | Discharge Summary ---
Date of Service May 23, 2020 Admission HPI Per Admitting Provider This is a 64-year-old male with PMHx of HTN, HLD, CAD, CABG x3 (CARBONE to LAD; SVG to Cx OM; SVG to PDA), NSTEMI, exertional angina. The patient most recently underwent a cardiac cath on 03/17/2020 here at [facility] found to have severe coronary disease. It was felt that the acute culprit lesion was in ostial to mid circumflex and intervention was felt to be difficult, likely requiring arthrectomy of the LMCA and stenting across multiple branches. If PCI was attempted it was recommended to be referred to a tertiary care center for high risk/complex PCI. He was seen most recently on 05/18/2020 at cardiology as an o utpatient by Dr. Mcarthur. Metoprolol had been titrated up in the past month, and so had Imdur. Pt is participating in cardiac rehab 3 times a week. Patient walks routinely for exercise otherwise. Occasionally he does need to stop due to bilateral arm pain or chest discomfort described as pressure. He typically uses nitro x1 which resolves his pain within 3 to 5 minutes. He early this morning around 4:40a he developed chest pain which radiated down into bilateral arms took a nitro tablet, and then felt recurrent pain 1 hour later, took a second nitro tablet and then again had similar presentation with pain recurring 1 hour later and took his 3rd nitro tablet in the car on the way here to the ER. This morning he presents due to continued ongoing pain, found to have new ST wave depressions in lateral leads on EKG. 3 inches of Nitropaste is on his chest, and has been started on a heparin drip in the ER. Cardiology is consulted. He reports his anxiety is severely high in the ER. His is present with him at bedside. His pain is currently completely resolved. Principal Diagnosis Unstable angina Discharge Exam Constitutional WD/WN, vitals as above Eyes + anicteric sclerae Neck trachea midline, no thyromegaly Respiratory normal respiratory effort, lungs clear to auscultation Cardiovascular RRR, no murmur, no edema Chest (Breasts) Chest: normal inspection of chest Gastrointestinal (Abdomen) normal bowel sounds, soft, nontender, no hepatosplenomegaly Musculoskeletal Extremities: extremities normal to inspection; no cyanosis and no clubbing Skin no rashes, warm and dry Neurologic moves all extremities and awake; no focal motor deficits Psychiatric A+Ox3, euthymic affect Lymphatic no lymphedema Discharge Data Allergies Allergy/AdvReac Type Severity Reaction Status Date / Time No Known Allergies Allergy Verified 05/21/20 07:36 Consultations 05/21/20 08:34 ED Decision to Admit Stat 05/21/20 10:24 Consult Cardiology Routine Consult Case Management - Discharge Planning Routine Procedures Performed Echocardiogram Ordered Studies Chest x-ray Hospital Course (1) Unstable angina: Patient presents with unstable angina which woke him from sleep on the day of admission. Serial troponin peaked at 0.5 ECG on admission showed some ST wave depressions in lateral leads Echocardiogram with EF 60-65%, no wall motion abnormalities, moderate LVH Appreciate cardiology consultation-given complex nature of his known coronary artery stenoses, he would require transfer to tertiary care if intervention was needed. Decision was made to pursue medical management at this point in time and he is doing very well with this. He had no further chest pain after admission with improved control of blood pressure -Added amlodipine 5 mg once daily and could be titrated up further as an outpatient -Increased metoprolol succinate dose to 200 mg once daily as per cardiology recommendation -Recently had his isosorbide increased to 120 mg daily -Increased home lisinopril dose to 40 mg once daily -Continue Plavix, aspirin -He was on a heparin drip for 48 hours -He ambulated multiple times around the [place] without angina prior to discharge It is okay for him to return to cardiac rehab this Thursday as per cardiology recommendation No events on telemetry Stable for discharge to home as per my discussion with cardiology on the day of discharge. (2) NSTEMI (non-ST elevated myocardial infarction): Ruled out (3) CAD (coronary artery disease): Severe, as above (4) S/P CABG (coronary artery bypass graft): Noted (5) Hypertension: Blood pressures uncontrolled upon admission, now improved but have room fo r improvement Medication changes as noted above Continue to follow blood pressures at home 3 times daily and keep a log book We will also be attending cardiac rehab Follow-up with cardiology and PCP (6) Hypercholesterolemia: -Continue statin therapy with atorvastatin (7) Osteoarthritis: Continue Tylenol as needed Avoid NSAIDs in the setting of severe CAD (8) DVT prophylaxis: heparin gtt CODE: FULL Dispo: Stable for discharge to home Total Time Total Time Spent Total Time Spent (In Minutes): 35 minutes Total Time Includes: Examination of the Patient, Discharge Planning, Medication Reconciliation and Communication With Other Providers Discharge Plan Discharge Items Patient Disposition: Home - Self-Care Reason For Visit: CHEST PAIN Discharge Diagnosis: Unstable angina Condition on Discharge: Fair Activity: Resume your previous activity Activity Comment: Okay to restart cardiac rehab on Thursday Non-emergency contact: Primary Care Provider Call non-emergency contact if: you have any medication questions, your symptoms worsen, your pain is not controlled, your pain is worsening and your pain is concerning for you Follow-up/Referrals: Abdoul Mcarthur MD [Physician] - (Please follow-up within 2 to 3 weeks.) Yanira Martell MD [Primary Care Provider] - (Please follow-up within 1 to 2 weeks.) Diet: Heart Healthy and Low Sodium (2gm) Addtl Attending Provider Instructions: You are admitted for unstable angina and treated with medications rather than pursuing a repeat cardiac catheterization given the complex nature of your coronary artery disease. Your blood pressure was uncontrolled and additional changes were made to your blood pressure medications. You have been started on amlodipine 5 mg once daily, had your metoprolol increased to 200 mg once daily, and had her lisinopril increased to 40 mg once daily. Your amlodipine may be increased further as an outpatient with Dr. Mcarthur. Please continue to take your blood pressures 3 times a day as directed. You are cleared to restart cardiac rehabilitation as per Dr. Mcarthur. If you have recurrence of chest pain, please call your bi manager or return to the emergency room. Pending Studies at Discharge: No Stand-Alone Forms: My [facility] Medications and DC Order Prescriptions: New lisinopril [Zestril] 40 mg Tablet 40 mg PO QAM Qty: 30 RF: 0 metoprolol succinate 200 mg tablet extended release 24 hr 200 mg PO DAILY Qty: 30 RF: 0 amlodipine [Norvasc] 5 mg Tablet 5 mg PO QAM Qty: 30 RF: 0 lorazepam 0.5 mg Tablet 0.5 mg PO BID PRN (Reason: anxiety) Qty: 10 RF: 0 Continued atorvastatin 80 mg tablet 80 mg PO DAILY Qty: 90 RF: 3 nitroglycerin 0.4 mg tablet, sublingual 0.4 mg SL Q5M PRN (Reason: chest pain) Qty: 25 RF: 4 PreserVision AREDS [id number] capsule 1 cap PO BID RF: 0 aspirin 81 mg tablet,chewable 1 tab PO DAILY RF: 0 cholecalciferol (vitamin D3) 50 mcg (2,000 unit) capsule 50 mcg PO DAILY RF: 0 isosorbide mononitrate 120 mg tablet extended release 24 hr 120 mg PO DAILY Qty: 90 RF: 3 clopidogrel 75 mg Tablet 75 mg PO QAM Qty: 90 RF: 3 Discontinued metoprolol succinate 100 mg tablet extended release 24 hr 150 mg PO DAILY Qty: 135 RF: 3 lisinopril 10 mg Tablet 30 mg PO QAM Qty: 180 RF: 3 Discharge Orders: Discharge Order (Routine); Ordered 05/23/20 Ordered By: Cynthia Gonzales Admission Data Admit Date/Time: 05/21/20 10:52 Attending Provider: Cynthia Gonzales Admit Provider: Cynthia Gonzales Primary Care Provider: Yanira Martell Other Providers: Cynthia Gonzales ; Abdoul Mcarthur Coding Level of Care Code D/C Day Management >30 mins Diagnoses Unstable angina I20.0 NSTEMI (non-ST elevated myocardial infarction) I21.4 CAD (coronary artery disease) I25.700 Associated angina: with unstable angina Coronary Disease-Associated Artery/Lesion type: bypass graft [place] vs. transplanted heart: [place] heart S/P CABG (coronary artery bypass graft) Z95.1 Hypertension I10 Hypercholesterolemia E78.00 Osteoarthritis M19.90 DVT prophylaxis Z29.9
[2020-05-23 13:03] VITALS: PULSE 65
== END 2020-05-23 13:55 | disposition home or self-care (01) | DRG 282 ==
LOC: ED 07:06 → 1E 07:06
DX: M19.90 Unspecified osteoarthritis, unspecified site; Z95.1 Presence of aortocoronary bypass graft; Z79.02 Long term (current) use of antithrombotics/antiplatelets; I10 Essential (primary) hypertension; Z79.82 Long term (current) use of aspirin; I25.110 Atherosclerotic heart disease of native coronary artery with unstable angina pectoris; I21.4 Non-ST elevation (NSTEMI) myocardial infarction; E78.00 Pure hypercholesterolemia, unspecified; Z79.899 Other long term (current) drug therapy; Z82.49 Family history of ischemic heart disease and other diseases of the circulatory system

== ENCOUNTER 2020-06-06 02:17 | Inpatient (IN) ==
[2020-06-06] MEDS ORDERED: ASPIRIN CHEW 324 MG PO STA (02:32)
[2020-06-06] MEDS ORDERED: NITROGLYCERIN 2% OINTMENT 30GM TUBE EXT ONE (02:41)
[2020-06-06 02:47] LABS: Basophils # (auto) 0.03 K/uL (0-0.2); Basophils % (auto) 0.4 %; Eosinophils # (auto) 0.18 K/uL (0-0.5); Eosinophils % (auto) 2.6 %; Hematocrit (blood only) 43.7 % (42-52); Hemoglobin 14.5 g/dL (14.0-18.0); Immature Granulocytes # (auto) 0.01 K/uL (0.00-0.02); Immature Granulocytes % (auto) 0.1 %; Lymphocytes # (auto) 2.64 K/uL (1.2-3.4); Lymphocytes % (auto) 37.7 %; Mean Corpuscular Hemoglobin 30.7 pg (25-34); Mean Corpuscular Hgb Conc 33.2 g/dL (32-36); Mean Corpuscular Volume 92.6 fL (80-100); Mean Platelet Volume 10.1 fL (7.4-10.4); Monocytes # (auto) 0.82 K/uL (0.11-0.59); Monocytes % (auto) 11.7 %; Neutrophils # (auto) 3.32 K/uL (1.4-6.5); Neutrophils % (auto) 47.5 %; Platelet Count 175 K/uL (130-400); RDW Coefficient of Variation 14.2 % (11.5-14.5); RDW Standard Deviation 48.3 fL (36.4-46.3); Red Blood Count 4.72 M/uL (4.7-6.1)
[2020-06-06 02:55] LABS: Alanine Aminotransferase 44 U/L (12-78); Albumin Level 3.6 gm/dl (3.4-5.0); Aspartate Aminotransferase 20 U/L (15-37); Blood Urea Nitrogen 14 mg/dl (7-18); Calcium 8.9 mg/dl (8.5-10.1); Carbon Dioxide 26 mmol/L (21-32); Chloride 110 mmol/L (98-107); Creatinine Clr Calc Pharmacy 98.8 ml/min; Est GFR (African American) 99.4; Est GFR (Non-African American) 85.8; Glucose 165 mg/dl (70-99); Lipase 191 U/L (73-393); Potassium 3.7 mmol/L (3.5-5.1); Sodium 141 mmol/L (136-145)
[2020-06-06 02:59] LABS: Partial Thromboplastin Ratio 0.9; Partial Thromboplastin Time 24.5 Seconds (21.0-31.0); Prothrombin Time 10.9 Seconds (9.0-12.0)
[2020-06-06 03:00] LABS: Albumin Globulin Ratio 0.9 (0.9-2); Alkaline Phosphatase 70 U/L (45-117); Bilirubin,Total 0.8 mg/dl (0.2-1); Total Protein 7.6 gm/dl (6.4-8.2); Troponin I < 0.015 ng/ml (0-0.045)
[2020-06-06] MEDS ORDERED: Heparin IV Low Dose WITH Bolus IV STA (04:59)
[2020-06-06] MEDS ORDERED: HEPARIN SOD (PORCINE) 1000 UNIT/ML 10 ML VIAL ONE (05:09)
[2020-06-06] MEDS: HEPARIN SODIUM/DEXTROSE 25,000 UNITS/500 ML BAG IV SCH (05:16)
--- NOTE | 2020-06-06 06:26 | History & Physical Report ---
Date of Service June 06, 2020 Assessment & Plan (1) CAD (coronary artery disease): 65yo C male with known CAD presenting with CP, elevated troponin at 0.012, mild ST-T wave changes noted on EKG. Patient presently hemodynamically stable, CP free after SL Nitro x 3 at home, Nitropaste and ASA in ER. He is known to Cardiology and has been in communication with [facility] about possible intervention, revascularization. Concern for UA, NSTEMI. -Observation to medical with telemetry -Trend troponin q 6 hours to peak -Continue home medications to include ASA 81mg, Plavix 75mg, Atorvastatin 80mg, Metoprolol succinate 200mg, Lisinopril 40mg, Isosorbide 240mg and Amlodipine 5mg -Continue heparin gtt -Nitro PRN -Cardiology consultation appreciated. ?Need for transfer vs additional medical therapy to be determined Present on Admission?: Yes (2) Hypercholesterolemia: Chronic. Stable -Continue high dose statin, Atorvastatin 80mg po daily Present on Admission?: Yes (3) Hypertension: Blood pressure mildly elevated -Continue medications as above - to receive at 09:00 -Continue to monitor F/E/N - Heplock. Monitor electrolytes - will give Kdur x 40mEq, check Mg level and replete as necessary, NPO for now for possible intervention Ppx - Heparin gtt Code - Full per discussion with patient Dispo - Observation to medical with telemetry, trending troponin and Cardiology evaluation Present on Admission?: Yes History of Present Illness Chief Complaint: Chest pain Primary Care Provider: Yanira Martell MD 65yo male with history of HTN, HLP and CAD presenting with chest pain. Patient with history of CABG x 3V (CARBONE to LAD; SVG to Cx OM; SVG to PDA) performed in November 2017 at [facility]. He was admitted to [facility] from 03/17/20 - 03/19/20 with chest pain and elevated troponin which peaked at 16.4. Patient had a cardiac catheterization performed on 03/17/20, results below. Optimal medical therapy recommended at that time as lesions not easily amenable to stenting. He returned to [facility] on 05/21/20 - 05/23/20 with chest pain thought to be secondary to unstable angina. Patient was managed with a heparin gtt x 48 hours. His troponin peaked at 0.5. Echocardiogram was performed on 05/21/20 with results below. Patient was evaluated by Cardiology - Amlodipine 5mg daily initiated, Metoprolol succinate increased to 200mg po daily, Lisinopril increased to 40mg. He was discharged home in stable condition. This evening around 23:30 patient developed band-like tightness across his chest with radiation down his left arm and some mild discomfort in his right shoulder. He took an Ativan and the pain resolved. The pain returned around 01:00 and the patient took a Nitro with relief. The pain returned around 01:30 and the patient took his 2nd Nitro with relief then again at 02:00. He then came to the ER after taking his 3rd Nitro. On arrival he was afebrile, HD stable, NAD. CP present. ASA 324mg administered, Nitropaste 1 inch placed to anterior chest wall with relief of pain. Troponin found to be mildly elevated at 0.012 with subtle EKG changes. Heparin gtt was initiated. Patient presently with no complaints. Specifically is CP free, no SOB/cough/dizziness/diaphoresis/nausea/vomiting/diarrhea/constipation. No fevers/chills/known exposure to Covid-19. Patient has been in communication with Cardiology and Interventional Cardiology at [facility]. He has a tele-visit scheduled for tomorrow 06/07/20 at 07:30 to discuss possible CABG. He has a followup with [facility] on 06/07/20 at 10:00. Given the complex nature of his coronary artery stenosis he would require transfer to a tertiary care center if intervention is needed. Patient continues to participate in cardiac rehabilitation without difficulty. Echo 05/21/20 - Technically difficult study. Normal LV size and function with EF of 60-65%, small area of distal lateral hypokinesis suggested in some views, otherwise normal wall motion. Moderate concentric LVH. Grade I diastolic dysfunction. Trace MR. Cardiac catheterization was completed,03/17/20 demonstrating: LM -large caliber vessel, 90% heavily calcified distal left main prior to bifurcation LAD -100% mid occlusion after takeoff of first septal. Circumflex -retrograde takeoff, 95% ostial lesion with disease extending into mid segment across takeoff of OM1, OM 2. Medium caliber OM 2 with 50% proximal disease. RCA -large caliber, dominant, heavily calcified, subtotal earlymid RCA occlusion, 100% latemid RCA occlusion. RV branch fills via right to right collaterals. CARBONE to LADwidely patent. Mid to distal LAD after anastomosis small vessel with moderate diffuse disease. Gives off brisk epicardial collaterals to right PLB which retrofills into distal RCA. SVG to circumflexoccluded at the ostium SVG to PDAdiffuse 90% disease involving total length of vein graft with ТАТЬЯНА I-II flow ER Course: ASA 324mg, Heparin bolus and gtt, Nitro x 1in Allergies Allergy/AdvReac Type Severity Reaction Status Date / Time No Known Allergies Allergy Verified 06/06/20 03:13 Home Medications Home Medications Medication Instructions Recorded Confirmed Type aspirin 81 mg chewable tablet 1 tab PO DAILY tab 04/13/19 06/06/20 History vitamins A,C,H-beeb-dxsbme 14,320 1 cap PO BID 04/13/19 06/06/20 History unit-226 mg-200 unit capsule atorvastatin 80 mg tablet 80 mg PO DAILY #90 tab 03/13/20 06/06/20 Rx clopidogrel 75 mg PO QAM #90 tab 03/19/20 06/06/20 Rx nitroglycerin 0.4 mg sublingual 0.4 mg SL Q5M PRN #25 tab 05/02/20 06/06/20 Rx tablet cholecalciferol (vitamin D3) 50 50 mcg PO DAILY 05/18/20 06/06/20 History mcg (2,000 unit) capsule amlodipine [Norvasc] 5 mg PO QAM #30 tab 05/23/20 06/06/20 Rx lisinopril [Zestril] 40 mg PO QAM #30 tab 05/23/20 06/06/20 Rx lorazepam 0.5 mg PO BID PRN #10 tab 05/23/20 06/06/20 Rx metoprolol succinate 200 mg PO DAILY #30 tab 05/23/20 06/06/20 Rx isosorbide mononitrate 120 mg 240 mg PO DAILY #180 tab 05/27/20 06/06/20 Rx tablet,extended release 24 hr Past Med/Surg History Medical History (Updated 06/06/20 @ 06:54 by Adelina Metcalf DO) Abnormal liver function test Acute electrocardiogram changes Atypical chest pain CAD (coronary artery disease) Enlarged prostate without lower urinary tract symptoms (luts) Hx of sciatica Hypercholesterolemia Hypertension NSTEMI (non-ST elevated myocardial infarction) Osteoarthritis Surgical History History of foot surgery bilateral History of herniorrhaphy "Bilateral" 1971 Hx of tonsillectomy S/P CABG (coronary artery bypass graft) 3 vessel Family History (Updated 11/18/19 @ 15:33 by Dennise Nunes) Father Acute myocardial infarction at age 44 Mother Coronary heart disease Diabetes Brother Hypertension Social History Smoking Status: Never smoker Second Hand Exposure: No; Hx Alcohol Use: No Hx Substance Use: No Preferred Language: Romanian Communication Ability: Effective Resistor Inspector Required: No Beliefs That Will Affect Care: None marital status: Current Living Situation: Spouse Feels Safe at Home: Yes Assistive Devices: Glasses Review of Systems Review of Systems: All systems reviewed & are unremarkable except as noted in HPI & below Physical Exam Physical Exam: General: patient resting comfortably, NAD, non-toxic in appearance, AA&O x 4 Skin: warm, dry, intact, no rashes or lesions HEENT: NC/AT, PERRL, EOMI, anicteric sclera, conjunctiva without injection, external ear normal to inspection and nontender, nares patent, moist mucus membranes, dentition intact, no oropharyngeal lesions, neck supple, trachea midline, no LAD, no thyromegaly, no JVD Heart: +S1/S2, regular, no m/r/g, peripheral pulses 2+ with adequate capillary refill Lungs: equal air entry bilaterally, no rales/rhonchi/wheezes Abd: +BS, soft, NT/ND, no masses/organomegaly/ascites Ext: warm, 2+ pulses in UE/LE bilaterally, no clubbing/cyanosis, trace pitting edema of bilateral LE Neuro: nonfocal, patient AA&O x 4, speech intact, no facial droop, moving all extremities on command with equal strength 5/5 Results & Data Results & Data ([facility]) Vital Signs (Past 12 Hours) Vital Signs Temp Pulse Pulse Resp BP BP Pulse Ox 06/06/20 05:00 63 18 131/73 93 06/06/20 04:00 65 20 141/77 H 95 06/06/20 03:18 68 20 158/90 H 96 06/06/20 02:34 97 06/06/20 02:20 36.5 C 73 18 176/94 H 95 Laboratory Results Lab Results 06/06/20 06/06/20 06/06/20 Range/Units 02:25 02:25 02:25 WBC 7.00 (4.8-10.8) K/uL RBC 4.72 (4.7-6.1) M/uL Hgb 14.5 (14.0-18.0) g/dL Hct 43.7 (42-52) % MCV 92.6 (80-100) fL MCH 30.7 (25-34) pg MCHC 33.2 (32-36) g/dL RDW Std Deviation 48.3 H (36.4-46.3) fL RDW Coeff of Meghan 14.2 (11.5-14.5) % Plt Count 175 (130-400) K/uL MPV 10.1 (7.4-10.4) fL Immature Gran % (Auto) 0.1 % Neut % (Auto) 47.5 % Lymph % (Auto) 37.7 % [place] % (Auto) 11.7 % Eos % (Auto) 2.6 % Baso % (Auto) 0.4 % Neut # (Auto) 3.32 (1.4-6.5) K/uL Lymph # (Auto) 2.64 (1.2-3.4) K/uL [place] # (Auto) 0.82 H (0.11-0.59) K/uL Eos # (Auto) 0.18 (0-0.5) K/uL Baso # (Auto) 0.03 (0-0.2) K/uL Immature Gran # (Auto) 0.01 (0.00-0.02) K/uL PT 10.9 (9.0-12.0) Seconds INR 1.0 (0.9-1.1) APTT 24.5 (21.0-31.0) Seconds PTT Ratio 0.9 Sodium 141 (136-145) mmol/L Potassium 3.7 (3.5-5.1) mmol/L Chloride 110 H (98-107) mmol/L Carbon Dioxide 26 (21-32) mmol/L Anion Gap 5.0 (3-11) BUN 14 (7-18) mg/dl Creatinine 0.92 (0.6-1.4) mg/dl Est Cr Clr Drug Dosing 98.8 ml/min Est GFR ( Amer) 99.4 Est GFR (Non-Af Amer) 85.8 BUN/Creatinine Ratio 15.0 (10-20) Glucose 165 H (70-99) mg/dl Calcium 8.9 (8.5-10.1) mg/dl Total Bilirubin 0.8 (0.2-1) mg/dl AST 20 (15-37) U/L ALT 44 (12-78) U/L Alkaline Phosphatase 70 (45-117) U/L Troponin I < 0.015 (0-0.045) ng/ml Total Protein 7.6 (6.4-8.2) gm/dl Albumin 3.6 (3.4-5.0) gm/dl Globulin 4.0 (2.5-4.0) gm/dl Albumin/Globulin Ratio 0.9 (0.9-2) Lipase 191 (73-393) U/L 06/06/20 Range/Units 04:05 WBC (4.8-10.8) K/uL RBC (4.7-6.1) M/uL Hgb (14.0-18.0) g/dL Hct (42-52) % MCV (80-100) fL MCH (25-34) pg MCHC (32-36) g/dL RDW Std Deviation (36.4-46.3) fL RDW Coeff of Meghan (11.5-14.5) % Plt Count (130-400) K/uL MPV (7.4-10.4) fL Immature Gran % (Auto) % Neut % (Auto) % Lymph % (Auto) % [place] % (Auto) % Eos % (Auto) % Baso % (Auto) % Neut # (Auto) (1.4-6.5) K/uL Lymph # (Auto) (1.2-3.4) K/uL [place] # (Auto) (0.11-0.59) K/uL Eos # (Auto) (0-0.5) K/uL Baso # (Auto) (0-0.2) K/uL Immature Gran # (Auto) (0.00-0.02) K/uL PT (9.0-12.0) Seconds INR (0.9-1.1) APTT (21.0-31.0) Seconds PTT Ratio Sodium (136-145) mmol/L Potassium (3.5-5.1) mmol/L Chloride (98-107) mmol/L Carbon Dioxide (21-32) mmol/L Anion Gap (3-11) BUN (7-18) mg/dl Creatinine (0.6-1.4) mg/dl Est Cr Clr Drug Dosing ml/min Est GFR ( Amer) Est GFR (Non-Af Amer) BUN/Creatinine Ratio (10-20) Glucose (70-99) mg/dl Calcium (8.5-10.1) mg/dl Total Bilirubin (0.2-1) mg/dl AST (15-37) U/L ALT (12-78) U/L Alkaline Phosphatase (45-117) U/L Troponin I 0.112 H* (0-0.045) ng/ml Total Protein (6.4-8.2) gm/dl Albumin (3.4-5.0) gm/dl Globulin (2.5-4.0) gm/dl Albumin/Globulin Ratio (0.9-2) Lipase (73-393) U/L Diagnostic Findings XR chest 1V portable HISTORY: 65 years-old Male Chest Pain acute atypical chest pain COMPARISON: Chest radiograph 05/21/2020 TECHNIQUE: Portable AP view of the chest FINDINGS: Cardiac silhouette is enlarged. Prior median sternotomy and CABG. No pneumot horax, pleural effusion, airspace consolidation or overt pulmonary edema. Unchanged mild right hemidiaphragmatic elevation. Bones of the chest appear grossly intact. IMPRESSION: Cardiomegaly without acute process. ACT 112: Negative or not required by law. The above report was generated using voice recognition software. It may contain grammatical, syntax or spelling errors. Electronically signed by: Misael Edwards M.D. 06/06/2020 6:40 AM Dictated: 06/06/20 0638 Transcribed: 06/06/20 063 ECG Additional Comments: EKG wtih NSR at 71bpm, normal axis, QD=954, QRS=98, AQi=300, ST elevation in aVR with ST depression present in I, aVL and anterior leads, slightly more pronounced when compared to 05/22/20 Code Status & VTE Plan Code Status Full Code PG Care Time/CCT Total # of Minutes Spent Total Time Spent with Patient: Total time spent is greater than 50% in coordination of care (as documented) at patient's floor/unit and/or counseling patient: Coding Level of Care Code 57291 OBS Care - Level 2 Diagnoses CAD (coronary artery disease) I25.700 Associated angina: with unstable angina Coronary Disease-Associated Artery/Lesion type: bypass graft [place] vs. transplanted heart: [place] heart Hypercholesterolemia E78.00 Hypertension I10 Hypertension type: essential hypertension (1) Hypertension Hypertension type: essential hypertension Qualified Code(s): I10 - Essential (primary) hypertension (2) CAD (coronary artery disease) Associated angina: with unstable angina Coronary Disease-Associated Artery/Lesion type: bypass graft [place] vs. transplanted heart: [place] heart Qualified Code(s): I25.700 - Atherosclerosis of coronary artery bypass graft(s), unspecified, with unstable angina pectoris
--- NOTE | 2020-06-06 06:41 | XRay Report ---
XR chest 1V portable HISTORY: 65 years-old Male Chest Pain acute atypical chest pain COMPARISON: Chest radiograph 05/21/2020 TECHNIQUE: Portable AP view of the chest FINDINGS: Cardiac silhouette is enlarged. Prior median sternotomy and CABG. No pneumothorax, pleural effusion, airspace consolidation or overt pulmonary edema. Unchanged mild right hemidiaphragmatic elevation. Kasi rosalina of the chest appear grossly intact. IMPRESSION: Cardiomegaly without acute process. ACT 112: Negative or not required by law. The above report was generated using voice recognition software. It may contain grammatical, syntax o r spelling errors. Electronically signed by: Misael Edwards M.D. 06/06/2020 6:40 AM
[2020-06-06] MEDS ORDERED: NITROGLYCERIN SL 0.4 MG/TAB TAB SL PRN (07:00)
[2020-06-06] MEDS ORDERED: POTASSIUM CHLORIDE CRTAB 20 MEQ TABCR PO STA (07:00)
[2020-06-06] MEDS ORDERED: ONDANSETRON INJ 2 MG/ML 2 ML VIAL IV PRN (07:00)
[2020-06-06] MEDS: ATORVASTATIN 40 MG TAB PO SCH (07:43)
[2020-06-06] MEDS: ASPIRIN 81 MG ECTAB PO SCH (07:43)
[2020-06-06] MEDS: ISOSORBIDE MONO EXTENDED REL 60 MG TABCR PO SCH (07:43)
[2020-06-06] MEDS: CLOPIDOGREL BISULFATE 75 MG TAB PO SCH (07:44)
[2020-06-06] MEDS: lisinopril 40 MG TAB PO SCH (07:44)
[2020-06-06] MEDS: METOPROLOL SUCC 50MG EXT REL TAB PO SCH (07:44)
--- NOTE | 2020-06-06 08:08 | Emergency Department Note ---
History of Present Illness General Chief Complaint: Chest Pain Stated Complaint: CHEST PAINS Time Seen by Provider: 06/06/20 02:32 Source: patient, family and RN notes reviewed Mode of arrival: ambulatory Limitations: no limitations History of Present Illness Provider Complaint: chest pain Maximum Pain Intensity: 4 This patient is a 65-year-old male who presents emergency department with co mplaints of a left-sided chest discomfort that he first noticed around 11:30 PM/12 AM. Patient states he took 1 nitroglycerin tablet and had complete relief. About an hour later he noticed the pain again and took another nitroglycerin tablet. The patient again had relief. The patient did wake up from sleep just prior to arrival with recurrent pain of similar intensity. He does have a longstanding history of coronary artery disease. 2-1/2 years ago had a CABG at [facility]. Approximately 2 weeks ago the patient was evaluated here at [facility] with cardiac catheterization. He was told that he has significant coronary occlusion that was not amenable to PCI as it is "too dangerous" per patient. He states he has been in conversation with a cardiac surgeon at [facility] who he has a telehealth appointment scheduled with tomorrow morning. This surgeon has his cardiology records including his most recent catheterization. He has had a phone conversation with him regarding a second bypass procedure. Patient states his pain is currently a 2/10, he denies shortness of breath or fever. He denies any nausea or diaphoresis. Home Medications Home Medications Medication Instructions Recorded Confirmed Type aspirin 81 mg chewable tablet 1 tab PO DAILY tab 04/13/19 06/06/20 History vitamins A,C,R-wskk-nopvzm 14,320 1 cap PO BID 04/13/19 06/06/20 History unit-226 mg-200 unit capsule atorvastatin 80 mg tablet 80 mg PO DAILY #90 tab 03/13/20 06/06/20 Rx clopidogrel 75 mg PO QAM #90 tab 03/19/20 06/06/20 Rx nitroglycerin 0.4 mg sublingual 0.4 mg SL Q5M PRN #25 tab 05/02/20 06/06/20 Rx tablet cholecalciferol (vitamin D3) 50 50 mcg PO DAILY 05/18/20 06/06/20 History mcg (2,000 unit) capsule amlodipine [Norvasc] 5 mg PO QAM #30 tab 05/23/20 06/06/20 Rx lisinopril [Zestril] 40 mg PO QAM #30 tab 05/23/20 06/06/20 Rx lorazepam 0.5 mg PO BID PRN #10 tab 05/23/20 06/06/20 Rx metoprolol succinate 200 mg PO DAILY #30 tab 05/23/20 06/06/20 Rx isosorbide mononitrate 120 mg 240 mg PO DAILY #180 tab 05/27/20 06/06/20 Rx tablet,extended release 24 hr Allergies Allergy/AdvReac Type Severity Reaction Status Date / Time No Known Allergies Allergy Verified 06/06/20 03:13 Past Med/Surg History Medical History Abnormal liver function test Acute electrocardiogram changes Atypical chest pain CAD (coronary artery disease) Enlarged prostate without lower urinary tract symptoms (luts) Hx of sciatica Hypercholesterolemia Hypertension NSTEMI (non-ST elevated myocardial infarction) Osteoarthritis Surgical History History of foot surgery bilateral History of herniorrhaphy "Bilateral" 1971 Hx of tonsillectomy S/P CABG (coronary artery bypass graft) 3 vessel Family History Father Acute myocardial infarction at age 44 Mother Coronary heart disease Diabetes Brother Hypertension Social History Smoking Status: Never smoker Second Hand Exposure: No; Hx Alcohol Use: No Hx Substance Use: No Preferred Language: Greenlandic Communication Ability: Effective [employer] Employee Required: No Beliefs That Will Affect Care: None marital status: Current Living Situation: Spouse Feels Safe at Home: Yes Assistive Devices: Glasses Review of Systems See HPI for pertinent positives & negatives. and A total of 10 systems reviewed and were otherwise negative Physical Exam Vital Signs Vital Signs - 24 hr 06/06/20 02:20 06/06/20 02:34 06/06/20 03:18 Temperature 36.5 C Temperature Source Oral Pulse Rate 73 Pulse Rate [Right Finger] 68 Respiratory Rate 18 20 Respiratory Depth Normal Blood Pressure 176/94 H Blood Pressure [Right Arm] 158/90 H Blood Pressure Mean 121 Blood Pressure Mean [Right Arm] 112 Blood Pressure Position Lying Pulse Oximetry 95 97 96 Oxygen Delivery Method Room Air Room Air Oxygen Flow Rate 97 Sepsis Recent Fever Within 48 Hours No Sepsis New/Unexplained Change in Mental Status No Sepsis Action Taken by Nursing No Action Required 06/06/20 04:00 06/06/20 05:00 06/06/20 06:00 Temperature Temperature Source Pulse Rate 63 74 Pulse Rate [Right Finger] 65 Respiratory Rate 20 18 21 Respiratory Depth Blood Pressure 131/73 162/95 H Blood Pressure [Right Arm] 141/77 H Blood Pressure Mean 91 124 Blood Pressure Mean [Right Arm] 98 Blood Pressure Position Pulse Oximetry 95 93 97 Oxygen Delivery Method Oxygen Flow Rate Sepsis Recent Fever Within 48 Hours Sepsis New/Unexplained Change in Mental Status Sepsis Action Taken by Nursing Vital signs reviewed. General: Well-appearing 65 yo male, in no significant distress. HEENT: No scleral icterus, PERRLA, neck supple. Atraumatic. Cardiovascular: Regular rate and rhythm, no extra sounds. Pulmonary: Clear to auscultation bilaterally, normal work of breathing. Abdomen: Soft, obese, nontender, nondistended, positive bowel sounds. Musculoskeletal: Atraumatic, no peripheral edema. Neurologic: Patient awake alert and oriented x 3 Skin: Warm, dry, no rash Course Administered Medications Amlodipine Besylate (Amlodipine Besylate 5 Mg Tab) 5 mg PO QAM [facility] Stop: 07/06/20 08:59 Last Admin: 06/06/20 07:44 Dose: 5 mg Documented by: [id number] Aspirin (Aspirin 81 Mg Ectab) 81 mg PO DAILY [facility] Stop: 07/06/20 08:59 Last Admin: 06/06/20 07:43 Dose: 81 mg Documented by: [id number] Atorvastatin Calcium (Atorvastatin 40 Mg Tab) 80 mg PO DAILY [facility] Stop: 07/06/20 08:59 Last Admin: 06/06/20 07:43 Dose: 80 mg Documented by: [id number] Clopidogrel Bisulfate (Clopidogrel Bisulfate 75 Mg Tab) 75 mg PO QAM [facility] Stop: 07/06/20 08:59 Last Admin: 06/06/20 07:44 Dose: 75 mg Documented by: [id number] Heparin Sodium/Dextrose (Heparin Sodium/Dextrose) 25,000 units in 500 mls @ 20 mls/hr IV .Q24H [facility]; Protocol Stop: 07/06/20 04:59 Last Titration: 06/06/20 07:01 Dose: 1,000 units/hr, 20 mls/hr Documented by: [id number] Cosigned by: [id number] Admin: 06/06/20 05:16 Dose: 1,000 units/hr, 20 mls/hr Documented by: [id number] Cosigned by: [id number] Isosorbide Mononitrate (Isosorbide [place] Extended Rel 60 Mg Tabcr) 240 mg PO DAILY MISA Stop: 07/06/20 08:59 Last Admin: 06/06/20 07:43 Dose: 240 mg Documented by: [id number] Lisinopril (Lisinopril 40 Mg Tab) 40 mg PO QAM MISA Stop: 07/06/20 08:59 Last Admin: 06/06/20 07:44 Dose: 40 mg Documented by: [id number] Metoprolol Succinate (Metoprolol Succ 50mg Ext Rel Tab) 200 mg PO DAILY MISA Stop: 07/06/20 08:59 Last Admin: 06/06/20 07:44 Dose: 200 mg Documented by: [id number] Discontinued Medications Aspirin (Aspirin Chew 324 Mg) 324 mg PO NOW STA Stop: 06/06/20 02:33 Last Admin: 06/06/20 02:41 Dose: 324 mg Documented by: [id number] Heparin Sodium (Porcine) (Heparin Sod (Porcine) 1000 Unit/Ml 10 Ml Vial) Confirm Administered Dose 10,000 units .ROUTE .STK-MED ONE Stop: 06/06/20 05:10 Last Admin: 06/06/20 05:17 Dose: 4,000 units Documented by: [id number] Cosigned by: [id number] Heparin Sodium/Dextrose (Heparin Iv Low Dose With Bolus) 1 ea IV NOW STA; Protocol Stop: 06/06/20 05:00 Last Admin: 06/06/20 05:26 Dose: Not Given Documented by: [id number] Nitroglycerin (Nitroglycerin 2% Ointment 30gm Tube) 1 inch EXT NOW ONE Stop: 06/06/20 02:42 Last Admin: 06/06/20 02:47 Dose: 1 inch Documented by: [id number] Potassium Chloride (Potassium Chloride 20 Meq Tabcr) 40 meq PO NOW STA Stop: 06/06/20 07:01 Last Admin: 06/06/20 07:43 Dose: 40 meq Documented by: [id number] Medical Decision Making Differential Diagnosis Cardiac ischemia, aortic dissection, pulmonary embolism, pneumothorax, pneumonia, pericarditis, myocarditis, esophageal rupture, GERD, cholecystitis, pancreatitis, musculoskeletal, as well as other pathologies. Medical Records Attestation: I reviewed the patient's medical records. Home Medications Current Medication List: was personally reviewed by me Laboratory Data Attestation: I reviewed the patient's lab results. Result diagrams: 06/06/20 02:25 06/06/20 02:25 Labs: Lab Results 06/06/20 06/06/20 06/06/20 Range/Units 02:25 02:25 02:25 WBC 7.00 (4.8-10.8) K/uL RBC 4.72 (4.7-6.1) M/uL Hgb 14.5 (14.0-18.0) g/dL Hct 43.7 (42-52) % MCV 92.6 (80-100) fL MCH 30.7 (25-34) pg MCHC 33.2 (32-36) g/dL RDW Std Deviation 48.3 H (36.4-46.3) fL RDW Coeff of Meghan 14.2 (11.5-14.5) % Plt Count 175 (130-400) K/uL MPV 10.1 (7.4-10.4) fL Immature Gran % (Auto) 0.1 % Neut % (Auto) 47.5 % Lymph % (Auto) 37.7 % [place] % (Auto) 11.7 % Eos % (Auto) 2.6 % Baso % (Auto) 0.4 % Neut # (Auto) 3.32 (1.4-6.5) K/uL Lymph # (Auto) 2.64 (1.2-3.4) K/uL [place] # (Auto) 0.82 H (0.11-0.59) K/uL Eos # (Auto) 0.18 (0-0.5) K/uL Baso # (Auto) 0.03 (0-0.2) K/uL Immature Gran # (Auto) 0.01 (0.00-0.02) K/uL PT 10.9 (9.0-12.0) Seconds INR 1.0 (0.9-1.1) APTT 24.5 (21.0-31.0) Seconds PTT Ratio 0.9 Sodium 141 (136-145) mmol/L Potassium 3.7 (3.5-5.1) mmol/L Chloride 110 H (98-107) mmol/L Carbon Dioxide 26 (21-32) mmol/L Anion Gap 5.0 (3-11) BUN 14 (7-18) mg/dl Creatinine 0.92 (0.6-1.4) mg/dl Est Cr Clr Drug Dosing 98.8 ml/min Est GFR ( Amer) 99.4 Est GFR (Non-Af Amer) 85.8 BUN/Creatinine Ratio 15.0 (10-20) Glucose 165 H (70-99) mg/dl Calcium 8.9 (8.5-10.1) mg/dl Total Bilirubin 0.8 (0.2-1) mg/dl AST 20 (15-37) U/L ALT 44 (12-78) U/L Alkaline Phosphatase 70 (45-117) U/L Troponin I < 0.015 (0-0.045) ng/ml Total Protein 7.6 (6.4-8.2) gm/dl Albumin 3.6 (3.4-5.0) gm/dl Globulin 4.0 (2.5-4.0) gm/dl Albumin/Globulin Ratio 0.9 (0.9-2) Lipase 191 (73-393) U/L 06/06/20 Range/Units 04:05 WBC (4.8-10.8) K/uL RBC (4.7-6.1) M/uL Hgb (14.0-18.0) g/dL Hct (42-52) % MCV (80-100) fL MCH (25-34) pg MCHC (32-36) g/dL RDW Std Deviation (36.4-46.3) fL RDW Coeff of Meghan (11.5-14.5) % Plt Count (130-400) K/uL MPV (7.4-10.4) fL Immature Gran % (Auto) % Neut % (Auto) % Lymph % (Auto) % [place] % (Auto) % Eos % (Auto) % Baso % (Auto) % Neut # (Auto) (1.4-6.5) K/uL Lymph # (Auto) (1.2-3.4) K/uL [place] # (Auto) (0.11-0.59) K/uL Eos # (Auto) (0-0.5) K/uL Baso # (Auto) (0-0.2) K/uL Immature Gran # (Auto) (0.00-0.02) K/uL PT (9.0-12.0) Seconds INR (0.9-1.1) APTT (21.0-31.0) Seconds PTT Ratio Sodium (136-145) mmol/L Potassium (3.5-5.1) mmol/L Chloride (98-107) mmol/L Carbon Dioxide (21-32) mmol/L Anion Gap (3-11) BUN (7-18) mg/dl Creatinine (0.6-1.4) mg/dl Est Cr Clr Drug Dosing ml/min Est GFR ( Amer) Est GFR (Non-Af Amer) BUN/Creatinine Ratio (10-20) Glucose (70-99) mg/dl Calcium (8.5-10.1) mg/dl Total Bilirubin (0.2-1) mg/dl AST (15-37) U/L ALT (12-78) U/L Alkaline Phosphatase (45-117) U/L Troponin I 0.112 H* (0-0.045) ng/ml Total Protein (6.4-8.2) gm/dl Albumin (3.4-5.0) gm/dl Globulin (2.5-4.0) gm/dl Albumin/Globulin Ratio (0.9-2) Lipase (73-393) U/L Imaging Data Chest x-ray: Attestation: I personally reviewed and interpreted this imaging study as follows: Radiologist's impression: XR chest 1V portable HISTORY: 65 years-old Male Chest Pain acute atypical chest pain COMPARISON: Chest radiograph 05/21/2020 TECHNIQUE: Portable AP view of the chest FINDINGS: Cardiac silhouette is enlarged. Prior median sternotomy and CABG. No pneumothorax, pleural effusion, airspace consolidation or overt pulmonary edema. Unchanged mild right hemidiaphragmatic elevation. Bones of the chest appear grossly intact. IMPRESSION: Cardiomegaly without acute process. ACT 112: Negative or not required by law. The above report was generated using voice recognition software. It may contain grammatical, syntax or spelling errors. Electronically signed by: Misael Edwards M.D. 06/06/2020 6:40 AM Dictated: 06/06/20637 Transcribed: 06/06/20637 ECG Data Attestation: I personally reviewed and interpreted this ECG as follows: Indication: chest pain Rate (beats per minute): 71 Rhythm: normal sinus Findings: + ST depression; no prolonged QT (QTc is 419.) Change: no significant change (05/22/20) Additional Comments: EKG #2 at 03 17 reveals normal sinus rhythm at 71 bpm, nonspecific ST changes with diffuse subtle depression noted. QTc is 456. No elevation of the ST segments. No PVCs, no PACs. No significant change from previous. Blood Pressure Blood Pressure Findings: Elevated blood pressure Blood Pressure Disposition: further management by hospitalist MDM Narrative This patient was evaluated and appeared to be in no significant distress. IV access was obtained and laboratory work was drawn. An order for cardiac monitoring was placed and the patient is noted to be in a normal sinus rhythm at 77 bpm. Patient was given 1 inch of nitroglycerin paste to the anterior chest wall. He was given 325 mg of aspirin orally. Patient's initial troponin is less than 0.015. EKG reveals chronic ST changes, no elevation of the ST segment. A 90-minute troponin repeat was performed and is concerning for a slight bump to 0.112. A repeat EKG was performed and is similar to previous. Patient is pain-free at this time. Given his complicated history and recent catheterization at our facility, I did speak with Dr. 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 Has there is no acute coronary ischemia and the patient is stable, he was placed on a heparin drip and will be evaluated by the hospitalist service for further management. Consultation with cardiac surgery may be necessary if the patient's condition warrants. He is aware of the plan and agrees. Impression & Plan Unstable angina pectoris Discharge Plan Visit Data Chief Complaint: Chest Pain Stated Complaint: CHEST PAINS ED Provider: Kaur Greenwood Discharge Problem: Unstable angina pectoris Patient Disposition: Admitted As Inpatient Discharge Instructions Interventions: ED Discharge Assessment Last Done: 06/06/20 06:31
[2020-06-06] MEDS ORDERED: amLODIPine BESYLATE 5 MG TAB PO SCH (09:00)
[2020-06-06] MEDS: RANOLAZINE 500 MG ER TAB PO SCH ×2 (11:34→20:14)
[2020-06-06 11:58] LABS: Partial Thromboplastin Ratio 1.6
[2020-06-06 12:02] LABS: Partial Thromboplastin Time 45.6 Seconds (21.0-31.0)
[2020-06-06 12:07] LABS: Magnesium 2.3 mg/dl (1.8-2.4); Troponin I 2.62 ng/ml (0-0.045)
[2020-06-06] MEDS ORDERED: HEPARIN IV BOLUS 4,000 UNITS in SYRINGE 0 ML IV ONE (12:30)
--- NOTE | 2020-06-06 13:26 | Cardiology Consultation ---
Date of Consultation June 06, 2020 Assessment & Plan (1) Unstable angina pectoris: Unfortunately, despite aggressive antianginal therapy the patient seems to have suffered additional episode of ischemia. The episode itself occurred at rest and suggest an unstable process. He has been in contact with the [facility]. According to the patient they do not feel he is a good candidate for any percutaneous intervention. He was advised to consider repeat surgical revascularization. He is understandably hesitant. He wishes to exhaust all medical options prior to considering another surgery. We will continue him on systemic anticoagulation. Continue dual anti-platelet therapy. We can continue his nitrates, metoprolol, amlodipine and good blood pressure control. I will also start him on Ranexa. (2) CAD (coronary artery disease): Severe [place] vessel disease. Known occlusion of the saphenous vein graft to the circumflex distribution. On high-dose atorvastatin (3) Hypercholesterolemia: (4) Hypertension: . He reports generally good readings. Blood pressure slightly elevated here. I think we can increase his amlodipine to the maximum dose. (5) Mitral regurgitation: Mild History of Present Illness Reason for Consultation: Chest pain Requesting Physician: Dixon Attending Physician: Macario Younger History of Present Illness The patient is a 65-year-old gentleman with a long history of coronary disease resulting in prior surgical revascularization. More recently he has been suffering symptoms of unstable angina. A cardiac catheterization performed in March of this year revealed occlusion of a vein graft to the circumflex distribution. He was noted to have left main and proximal circumflex stenosis which would possibly require a complex percutaneous intervention for resolution. He was therefore started on medical therapy. However, the patient he has had additional episodes of chest pain since that time and was recently admitted to our medical center with an NSTEMI. The patient underwent systemic heparinization and intensification of his antianginal therapy. However, last evening around 11 30 he had an additional episode of typical chest pain. This occurred at rest. It responded to sublingual nitroglycerin but recurred little over an hour later. Again, this responded to nitroglycerin but recurred shortly afterwards. Due to the recurrent nature of his symptoms the patient came to the emergency room. He was placed on heparin infusion and topical nitrates were applied. He has had no additional symptoms of chest discomfort since admission. He did not report any additional symptoms such as shortness of breath. He has not had dizziness or lightheadedness. He did report a sense that his heart was pounding leading up to his current admission. He has not had this sensation before. He did not report any additional palpitations or sense of arrhythmia. The patient has been participating in cardiac rehab. He reports being able to walk on the treadmill in use other exercise machines without symptoms. Allergies Allergy/AdvReac Type Severity Reaction Status Date / Time No Known Allergies Allergy Verified 06/06/20 03:13 Home Medications Home Medications Medication Instructions Recorded Confirmed Type aspirin 81 mg chewable tablet 1 tab PO DAILY tab 04/13/19 06/06/20 History vitamins A,C,E-kols-ppieoj 14,320 1 cap PO BID 04/13/19 06/06/20 History unit-226 mg-200 unit capsule atorvastatin 80 mg tablet 80 mg PO DAILY #90 tab 03/13/20 06/06/20 Rx clopidogrel 75 mg PO QAM #90 tab 03/19/20 06/06/20 Rx nitroglycerin 0.4 mg sublingual 0.4 mg SL Q5M PRN #25 tab 05/02/20 06/06/20 Rx tablet cholecalciferol (vitamin D3) 50 50 mcg PO DAILY 05/18/20 06/06/20 History mcg (2,000 unit) capsule amlodipine [Norvasc] 5 mg PO QAM #30 tab 05/23/20 06/06/20 Rx lisinopril [Zestril] 40 mg PO QAM #30 tab 05/23/20 06/06/20 Rx lorazepam 0.5 mg PO BID PRN #10 tab 05/23/20 06/06/20 Rx metoprolol succinate 200 mg PO DAILY #30 tab 05/23/20 06/06/20 Rx isosorbide mononitrate 120 mg 240 mg PO DAILY #180 tab 05/27/20 06/06/20 Rx tablet,extended release 24 hr Patient History Medical History Abnormal liver function test Acute electrocardiogram changes Atypical chest pain CAD (coronary artery disease) Enlarged prostate without lower urinary tract symptoms (luts) Hx of sciatica Hypercholesterolemia Hypertension NSTEMI (non-ST elevated myocardial infarction) Osteoarthritis Surgical History History of foot surgery bilateral History of herniorrhaphy "Bilateral" 1971 Hx of tonsillectomy S/P CABG (coronary artery bypass graft) 3 vessel Family History Father Acute myocardial infarction at age 44 Mother Coronary heart disease Diabetes Brother Hypertension Social History Smoking Status: Never smoker Second Hand Exposure: No; Hx Alcohol Use: No Hx Substance Use: No Preferred Language: Yakut 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 Physical Exam Physical Exam: The patient is alert and oriented. Mood and affect appeared normal. He answered all questions appropriately. HEENT: Pupils are equal and reactive to light and accommodation. Extraocular movements are intact. The sclerae are anicteric. Neuro: Cranial nerves intact Neck: Patient's neck is supple. He has palpable carotid pulses bilaterally without bruits on auscultation. There is no evidence of jugular venous distention. The thyroid is not enlarged. Lungs: Clear to auscultation bilaterally. He has good air movement without use of accessory muscles. No rales wheezes or rhonchi. Cardiac: Heart demonstrates a regular rate and rhythm. Normal S1 and S2. No murmurs on examination. Pulses: The patient has palpable radial pulses bilaterally that are equal in intensity Extremities: There was no evidence of hypoperfusion. There is no cyanosis or clubbing. There is no edema. Skin: I did not appreciate any rashes on examination today. Results & Data ([facility]) Vital Signs (Past 12 Hours) Vital Signs Temp Pulse Pulse Resp BP BP BP 06/06/20 11:00 36.3 C L 61 18 130/73 06/06/20 08:48 68 06/06/20 06:55 36.5 C 77 18 162/94 H 06/06/20 06:45 36.5 C 77 18 162/94 H 06/06/20 06:00 74 21 162/95 H 06/06/20 05:00 63 18 131/73 06/06/20 04:00 65 20 141/77 H 06/06/20 03:18 68 20 158/90 H 06/06/20 02:34 06/06/20 02:20 36.5 C 73 18 176/94 H Pulse Ox 06/06/20 11:00 95 06/06/20 08:48 06/06/20 06:55 96 06/06/20 06:45 96 06/06/20 06:00 97 06/06/20 05:00 93 06/06/20 04:00 95 06/06/20 03:18 96 06/06/20 02:34 97 06/06/20 02:20 95 Laboratory Results Abnormal Lab Results 06/06/20 06/06/20 06/06/20 02:25 02:25 02:25 WBC 7.00 RBC 4.72 Hgb 14.5 Hct 43.7 MCV 92.6 MCH 30.7 MCHC 33.2 RDW Std Deviation 48.3 H RDW Coeff of Meghan 14.2 Plt Count 175 MPV 10.1 Immature Gran % (Auto) 0.1 Neut % (Auto) 47.5 Lymph % (Auto) 37.7 [place] % (Auto) 11.7 Eos % (Auto) 2.6 Baso % (Auto) 0.4 Neut # (Auto) 3.32 Lymph # (Auto) 2.64 [place] # (Auto) 0.82 H Eos # (Auto) 0.18 Baso # (Auto) 0.03 Immature Gran # (Auto) 0.01 PT 10.9 INR 1.0 APTT 24.5 PTT Ratio 0.9 Sodium 141 Potassium 3.7 Chloride 110 H Carbon Dioxide 26 Anion Gap 5.0 BUN 14 Creatinine 0.92 Est Cr Clr Drug Dosing 98.8 Est GFR ( Amer) 99.4 Est GFR (Non-Af Amer) 85.8 BUN/Creatinine Ratio 15.0 Glucose 165 H Calcium 8.9 Magnesium Total Bilirubin 0.8 AST 20 ALT 44 Alkaline Phosphatase 70 Troponin I < 0.015 NT-Pro-B Natriuret Pep Total Protein 7.6 Albumin 3.6 Globulin 4.0 Albumin/Globulin Ratio 0.9 Lipase 191 06/06/20 06/06/20 06/06/20 04:05 11:01 11:01 WBC RBC Hgb Hct MCV MCH MCHC RDW Std Deviation RDW Coeff of Meghan Plt Count MPV Immature Gran % (Auto) Neut % (Auto) Lymph % (Auto) Canadian % (Auto) Eos % (Auto) Baso % (Auto) Neut # (Auto) Lymph # (Auto) Canadian # (Auto) Eos # (Auto) Baso # (Auto) Immature Gran # (Auto) PT INR APTT 45.6 H* PTT Ratio 1.6 Sodium Potassium Chloride Carbon Dioxide Anion Gap BUN Creatinine Est Cr Clr Drug Dosing Est GFR ( Amer) Est GFR (Non-Af Amer) BUN/Creatinine Ratio Glucose Calcium Magnesium 2.3 Total Bilirubin AST ALT Alkaline Phosphatase Troponin I 0.112 H* 2.620 H* NT-Pro-B Natriuret Pep 849 Total Protein Albumin Globulin Albumin/Globulin Ratio Lipase Diagnostic Findings He has had the following studies/procedures: 1. Cardiac catheterization 11/06/2017 at [facility] [place]: LMCA 80%. Mid LAD 80%. Distal LAD 80%. OM1 80%. Dominant RCA. Proximal RCA 50%. Mid RCA 60%. Distal RCA 99%. LVEDP 10. 2. CABG x3 11/11/2017 at [facility] [place]: CARBONE to LAD. SVG to PDA. SVG to OM. 3. Cardiac catheterization 03/17/2020 [facility]: Distal LM CA 90% and heavily calcified. Mid LAD 100%. Circumflex with retrograde takeoff from the LMCA. Ostial circumflex 95% with disease extending into the mid segment across takeoff of OM1, OM2. Medium OM2 proximal 50%. Dominant RCA. Heavily calcified. Subtotal early to mid RCA occlusion. Late mid RCA 100%. RV branch fills via right to right collaterals. CARBONE to LAD patent. Mid to distal LAD after anastomosis was small vessel with moderate diffuse disease and gives [id number] collaterals to right PL, which retro fills distal RCA. SVG to circumflex 100%. SVG to PDA diffuse 90% involving total length of vein graft with ТАТЬЯНА I to II flow. Acute culprit lesion was felt to be complex ostial to mid circumflex disease and intervention was felt to be difficult, and likely requiring atherectomy of the LMCA and stenting across multiple branches. If PCI attempted, it was recommended for referral to tertiary care center for high risk/complex PCI. 4. Echo 03/17/2020: Normal LV size and systolic function. EF 55-60%. Possible mild hypokinesis involving the inferolateral wall. Moderate LVH. Mild MR. Normal RVSP . Chest x-ray obtained at the time admission not reveal any acute cardiopulmonary process. PG Care Time/CCT Total # of Minutes Spent Total Time Spent with Patient: Total time spent is greater than 50% in coordi nation of care (as documented) at patient's floor/unit and/or counseling patient: Coding Level of Care Code 06176 Initial Inpt Care Lvl 3 Diagnoses Unstable angina pectoris I20.0 CAD (coronary artery disease) I25.700 Associated angina: with unstable angina Coronary Disease-Associated Artery/Lesion type: bypass graft [place] vs. transplanted heart: [place] heart Hypercholesterolemia E78.00 Hypertension I10 Hypertension type: essential hypertension Mitral regurgitation I34.0 (1) CAD (coronary artery disease) Associated angina: with unstable angina Coronary Disease-Associated Artery/Lesion type: bypass graft [place] vs. transplanted heart: [place] heart Qualified Code(s): I25.700 - Atherosclerosis of coronary artery bypass graft(s), unspecified, with unstable angina pectoris (2) Hypertension Hypertension type: essential hypertension Qualified Code(s): I10 - Essential (primary) hypertension
--- NOTE | 2020-06-06 14:17 | Electrocardiogram Report ---
Test Reason : Blood Pressure : / mmHG Vent. Rate : 071 BPM Atrial Rate : 071 BPM P-R Int : 186 ms QRS Dur : 098 ms QT Int : 386 ms P-R-T Axes : 010 -11 012 degrees QTc Int : 419 ms Normal sinus rhythm Marked ST abnormality, possible inferolateral subendocardial injury Abnormal ECG When compared with ECG of 22-MAY-2020 10:26, No significant change was found Confirmed by Michael Dotson ([id number]) on 06/06/2020 2:16:38 PM Referred By: REFERRED SELF Confirmed By:Alok Dotson
--- NOTE | 2020-06-06 14:17 | Electrocardiogram Report ---
Test Reason : Blood Pressure : / mmHG Vent. Rate : 071 BPM Atrial Rate : 071 BPM P-R Int : 186 ms QRS Dur : 098 ms QT Int : 420 ms P-R-T Axes : 007 -18 023 degrees QTc Int : 456 ms Normal sinus rhythm Nonspecific ST abnormality Abnormal ECG When compared with ECG of 06-JUN-2020 02:22, (unconfirmed) No significant change was found Confirmed by Michael Dotson ([id number]) on 06/06/2020 2:16:44 PM Referred By: REFERRED SELF Confirmed By:Alok Dotson
[2020-06-06 19:40] LABS: Partial Thromboplastin Ratio 2.2
[2020-06-06 19:42] LABS: Partial Thromboplastin Time 61.5 Seconds (21.0-31.0)
--- NOTE | 2020-06-06 19:46 | Communication Note ---
Date of Service: June 06, 2020 Saw patient late afternoon. He was chest pain free and denied dyspnea. Anxious about his current health status. Has telehealth visit with his benefits clerk at [facility] at 0730 tomorrow am. They have recommended re-do of his prior CABG. He asks if he can speak with Dr Mcarthur in the morning as well. at bedside; had multiple questions. VS: BPs mildly high, otherwise stable gen- obese, NAD neck- no JVD heart- RRR, s1 s2 lungs- CTA b/l abd- soft NT ND BS+ ext- no edema labs - troponin 2.6 at 11am this am glucose 165 a1c 6.4% (March 2020) A/P: NSTEMI Severe [place] CAD s/p CABG 2 years ago with occlusions of multiple grafts based on cath done in March 2020 uncontrolled HTN pre-DM heparin x 48 hours, agree w/ increase in norvasc to 10mg for BP and angina, recheck a1c in am, check BMP and TSH in am, serial troponins until the peak is seen continue all other prior cardiac meds ranexa added today by Dr Dotson LDL was 48 in March 2020 - defer on repeat testing echo done just 2 weeks ago with preserved EF - defer on repeat echo Dr Mcarthur to see patient in am Macario Younger MD
[2020-06-06] MEDS: LORazepam 0.5 MG TAB PO PRN (20:14)
[2020-06-07] MEDS: HEPARIN SODIUM/DEXTROSE 25,000 UNITS/500 ML BAG IV SCH (04:04)
[2020-06-07 06:48] LABS: BUN Creatinine Ratio 12.9 (10-20); Calcium 9.1 mg/dl (8.5-10.1); Est GFR (Non-African American) 90.6; Potassium 3.9 mmol/L (3.5-5.1)
[2020-06-07 06:58] LABS: Thyroid Stimulating Hormone 3.14 uIu/ml (0.300-4.500)
[2020-06-07 07:04] LABS: Estimated Average Glucose 128 mg/dl; Hemoglobin A1C 6.1 % (4.5-5.6)
[2020-06-07] MEDS: METOPROLOL SUCC 50MG EXT REL TAB PO SCH (07:47)
[2020-06-07] MEDS: RANOLAZINE 500 MG ER TAB PO SCH ×2 (07:47→20:35)
[2020-06-07] MEDS: ASPIRIN 81 MG ECTAB PO SCH (07:48)
[2020-06-07] MEDS: ATORVASTATIN 40 MG TAB PO SCH (07:48)
[2020-06-07] MEDS: CLOPIDOGREL BISULFATE 75 MG TAB PO SCH (07:48)
[2020-06-07] MEDS: ISOSORBIDE MONO EXTENDED REL 60 MG TABCR PO SCH (07:48)
[2020-06-07] MEDS: amLODIPine BESYLATE 5 MG TAB PO SCH (07:48)
[2020-06-07] MEDS: lisinopril 40 MG TAB PO SCH (07:48)
--- NOTE | 2020-06-07 10:31 | Cardiology Progress Note ---
Date of Service June 07, 2020 Assessment & Plan (1) NSTEMI (non-ST elevated myocardial infarction): (2) CAD (coronary artery disease): (3) S/P CABG (coronary artery bypass graft): (4) Hypertension: (5) Hypercholesterolemia: ASSESSMENT/PLAN: 1. NSTEMI: He presented with unstable angina, angina at rest, with mildly elevated troponins. Has documented severe CAD of [place] vessels and bypass graft. After his last cardiac catheterization on 03/17/2020, it was recommended medical therapy with consideration for high risk PCI of LM CA into circumflex in a heavily calcified area and acute angle into the circumflex. He has been seen at [facility] virtually and bypass was recommended per his report. He has been rehospitalized multiple times for recurrent unstable angina or myocardial infarction, despite escalation in his medical therapy. Recommend transfer to [facility] for further evaluation and treatment, and consideration of revascularization. Continue aspirin 81 mg daily. Continue Plavix 75 mg daily. Continue high-dose amlodipine, metoprolol succinate, nitrate therapy, NICOLE- inhibitor, and high-intensity statin therapy. Continue Ranexa which was initiated during this hospital stay. He has been angina free since presentation. Repeat troponin this morning. Continue heparin drip. Recommend limited echo however if he is transferred to [facility], they plan on obtaining their own echo and therefore can hold off here if transfer occurs. 2. CAD s/p CABG x 3 (CARBONE to LAD; SVG to PDA; SVG to OM): CARBONE to LAD was patent, but SVG to circumflex was occluded while SVG to PDA had diffuse 90% stenosis involving the total length of the vein graft with ТАТЬЯНА 1-2 flow noted on 03/17/2020 catheterization. Continues to have unstable anginal episodes and myocardial infarctions despite escalation of medical therapy. Recommend transfer to [facility] for consideration of high-risk PCI versus CABG. He is being followed at [facility] for this issue. Plan as above. 3. Hypertension: Blood pressure has mostly been elevated here. Amlodipine was increased yesterday. Continue NICOLE-inhibitor and beta-deon. Optimize blood pressure control. Blood pressure has been well controlled both at home and during cardiac rehab. 4. Dyslipidemia: Continue high-intensity statin therapy. 5. Disposition: Highly complex cardiac issues. Recommend transfer to [facility] for consideration of redo CABG versus high-risk PCI. Plan of care discussed with Dr. Zazueta, primary hospitalist. Please call with any other questions or concerns. Admission and Anticipated Discharge Date Admission Date: June 06, 2020 Subjective He denies any further chest discomfort. He denies shortness of breath, syncope, near-syncope, palpitations, edema, or bleeding. He states that although his blood pressure is elevated here, his blood pressure has been very well controlled at home and at cardiac rehab. He states that his cuff at home actually was a bit higher than the cardiac rehab cuff when he checked to see if it correlated well at cardiac rehab. He had a virtual visit today with [facility]iology, Dr. Norris Lucas. He informed Dr. Lucas of his elevated troponin values and presentation. They discussed possible transfer from this facility to [facility] for further treatment and consideration of revascularization. Mr. Feliz has been recently told that perhaps CABG would be the recommended route from [facility], with his initial visit last week. He was alone in his hospital room. Review of systems: As above. Physical Exam Physical Exam: Gen.: No acute distress. Alert and oriented. HEENT: Anicteric sclera. Neck: Thick neck. No appreciable JVD. Cardiac: PMI was nonpalpable. No ventricular heave. Regular. Normal S1-S2. No murmurs, rubs, or gallops. Pulmonary: Clear to auscultation bilaterally without wheezes, rales, or rhonchi. Abdomen: Soft, nontender, nondistended, with normoactive bowel sounds. No bruits noted. Extremities: 2+ radial pulses bilaterally. Trace bilateral lower extremity edema. No cyanosis. Psychiatric: Affect appears appropriate. Results & Data ([facility]) Vital Signs (Past 12 Hours) Vital Signs Temp Pulse Pulse Pulse Resp BP BP 06/07/20 08:07 60 06/07/20 07:35 36.6 C 75 18 170/93 H 06/07/20 03:47 36.4 C L 67 20 170/100 H 06/07/20 00:43 54 L 06/06/20 22:53 65 18 142/80 H Pulse Ox 06/07/20 08:07 06/07/20 07:35 95 06/07/20 03:47 99 06/07/20 00:43 06/06/20 22:53 95 Laboratory Results Laboratory Results - last 24 hr 06/06/20 06/06/20 06/06/20 11:01 11:01 18:46 APTT 45.6 H* 61.5 H* PTT Ratio 1.6 2.2 Sodium Potassium Chloride Carbon Dioxide Anion Gap BUN Creatinine Est Cr Clr Drug Dosing Est GFR ( Amer) Est GFR (Non-Af Amer) BUN/Creatinine Ratio Glucose Estimat Average Glucose Hemoglobin A1c Calcium Magnesium 2.3 Troponin I 2.620 H* NT-Pro-B Natriuret Pep 849 TSH 06/06/20 06/07/20 06/07/20 18:46 05:50 05:50 APTT PTT Ratio Sodium 142 Potassium 3.9 Chloride 111 H Carbon Dioxide 27 Anion Gap 4.0 BUN 11 Creatinine 0.84 Est Cr Clr Drug Dosing 107.0 Est GFR ( Amer) 105.0 Est GFR (Non-Af Amer) 90.6 BUN/Creatinine Ratio 12.9 Glucose 104 H Estimat Average Glucose 128 Hemoglobin A1c 6.1 H Calcium 9.1 Magnesium Troponin I 2.830 H* NT-Pro-B Natriuret Pep TSH 3.140 06/07/20 05:50 APTT 55.0 H* PTT Ratio 2.0 Sodium Potassium Chloride Carbon Dioxide Anion Gap BUN Creatinine Est Cr Clr Drug Dosing Est GFR ( Amer) Est GFR (Non-Af Amer) BUN/Creatinine Ratio Glucose Estimat Average Glucose Hemoglobin A1c Calcium Magnesium Troponin I NT-Pro-B Natriuret Pep TSH Diagnostic Findings Telemetry personally reviewed: Sinus rhythm. PVCs. No arrhythmia. ECG personally reviewed: ECG 06/06/2020 at 3:17 a.m.: Sinus rhythm 71 beats per minute. Lateral ST depression. Medications Administered Current Inpatient Medications Amlodipine Besylate (Amlodipine Besylate 5 Mg Tab) 10 mg PO QAM [facility] Stop: 07/07/20 08:59 Last Admin: 06/07/20 07:48 Dose: 10 mg Documented by: Aspirin (Aspirin 81 Mg Ectab) 81 mg PO DAILY [facility] Stop: 07/06/20 08:59 Last Admin: 06/07/20 07:48 Dose: 81 mg Documented by: Atorvastatin Calcium (Atorvastatin 40 Mg Tab) 80 mg PO DAILY [facility] Stop: 07/06/20 08:59 Last Admin: 06/07/20 07:48 Dose: 80 mg Documented by: Clopidogrel Bisulfate (Clopidogrel Bisulfate 75 Mg Tab) 75 mg PO QAM [facility] Stop: 07/06/20 08:59 Last Admin: 06/07/20 07:48 Dose: 75 mg Documented by: Heparin Sodium/Dextrose (Heparin Sodium/Dextrose) 25,000 units in 500 mls @ 22 mls/hr IV .[id number] [facility]; Protocol Stop: 07/06/20 04:59 Last Titration: 06/07/20 06:54 Dose: 1,100 units/hr, 22 mls/hr Documented by: Isosorbide Mononitrate (Isosorbide [place] Extended Rel 60 Mg Tabcr) 240 mg PO DAILY [facility] Stop: 07/06/20 08:59 Last Admin: 06/07/20 07:48 Dose: 240 mg Documented by: Lisinopril (Lisinopril 40 Mg Tab) 40 mg PO M [facility] Stop: 07/06/20 08:59 Last Admin: 06/07/20 07:48 Dose: 40 mg Documented by: Lorazepam (Lorazepam 0.5 Mg Tab) 0.5 mg PO BID PRN PRN Reason: anxiety Stop: 07/06/20 06:59 Last Admin: 06/06/20 20:14 Dose: 0.5 mg Documented by: Metoprolol Succinate (Metoprolol Succ 50mg Ext Rel Tab) 200 mg PO DAILY [facility] Stop: 07/06/20 08:59 Last Admin: 06/07/20 07:47 Dose: 200 mg Documented by: Nitroglycerin (Nitroglycerin Sl 0.4 Mg/Tab Tab) 0.4 mg SL PRN PRN PRN Reason: Chest Pain Stop: 07/06/20 06:59 Ondansetron HCl (Ondansetron Inj 2 Mg/Ml 2 Ml Vial) 4 mg IV Q6H PRN PRN Reason: Nausea Stop: 07/06/20 06:59 Ranolazine (Ranolazine 500 Mg Er Tab) 500 mg PO Q12 [facility] Stop: 07/06/20 09:59 Last Admin: 06/07/20 07:47 Dose: 500 mg Documented by: And PG Care Time/CCT Total # of Minutes Spent Total Time Spent with Patient: Total time spent is greater than 50% in coordination of care (as documented) at patient's floor/unit and/or counseling patient: Coding Level of Care Code 29417 Subseq Hosp Care Lv 3 Diagnoses NSTEMI (non-ST elevated myocardial infarction) I21.4 CAD (coronary artery disease) I25.700 Associated angina: with unstable angina Coronary Disease-Associated Artery/Lesion type: bypass graft [place] vs. transplanted heart: [place] heart S/P CABG (coronary artery bypass graft) Z95.1 Hypertension I10 Hypertension type: essential hypertension Hypercholesterolemia E78.00 (1) CAD (coronary artery disease) Associated angina: with unstable angina Coronary Disease-Associated Artery/Lesion type: bypass graft [place] vs. transplanted heart: [place] heart Qualified Code(s): I25.700 - Atherosclerosis of coronary artery bypass graft(s), unspecified, with unstable angina pectoris (2) Hypertension Hypertension type: essential hypertension Qualified Code(s): I10 - Essential (primary) hypertension
[2020-06-07 13:40] LABS: Partial Thromboplastin Ratio 1.7
[2020-06-07 13:41] LABS: Partial Thromboplastin Time 46.8 Seconds (21.0-31.0)
--- NOTE | 2020-06-07 18:20 | Discharge Summary ---
Date of Service date of admission - June 06, 2020 Admission HPI Per Admitting Provider 65yo male with history of HTN, Hyperlipidemia, and CAD presenting with chest pain. Patient with history of CABG x 3V (CARBONE to LAD; SVG to Cx OM; SVG to PDA) performed in November 2017 at [facility]. He was admitted to [facility] from 03/17/20 - 03/19/20 with chest pain and elevated troponin which peaked at 16.4. Patient had a cardiac catheterization performed on 03/17/20, results below. Op timal medical therapy recommended at that time as lesions not easily amenable to stenting. He returned to [facility] on 05/21/20 - 05/23/20 with chest pain thought to be secondary to unstable angina. Patient was managed with a heparin gtt x 48 hours. His troponin peaked at 0.5. Echocardiogram was performed on 05/21/20 with results below. Patient was evaluated by Cardiology - Amlodipine 5mg daily initiated, Metoprolol succinate increased to 200mg po daily, Lisinopril increased to 40mg. He was discharged home in stable condition. This evening around 23:30 patient developed band-like tightness across his chest with radiation down his left arm and some mild discomfort in his right shoulder. He took an Ativan and the pain resolved. The pain returned around 01:00 and the patient took a Nitro with relief. The pain returned around 01:30 and the patient took his 2nd Nitro with relief then again at 02:00. He then came to the ER after taking his 3rd Nitro. On arrival he was afebrile, HD stable, NAD. CP present. ASA 324mg administered, Nitropaste 1 inch placed to anterior chest wall with relief of pain. Troponin found to be mildly elevated at 0.012 with subtle EKG changes. Heparin gtt was initiated. Patient presently with no complaints. Specifically is CP free, no SOB/cough/dizziness/diaphoresis/nausea/vomiting/diarrhea/constipation. No fevers/chills/known exposure to Covid-19. Patient has been in communication with Cardiology and Interventional Cardiology at [facility]. He has a tele-visit scheduled for tomorrow 06/07/20 at 07:30 to discuss possible CABG. He has a followup with [facility] on 06/07/20 at 10:00. Given the complex nature of his coronary artery stenosis he would require transfer to a tertiary care center if intervention is needed. Patient continues to participate in cardiac rehabilitation without difficulty. Echo 05/21/20 - Technically difficult study. Normal LV size and function with EF of 60-65%, small area of distal lateral hypokinesis suggested in some views, otherwise normal wall motion. Moderate concentric LVH. Grade I diastolic dysfunction. Trace MR. Cardiac catheterization was completed 03/17/2020 at [facility] demonstrating: LM - large caliber vessel, 90% heavily calcified distal left main prior to bifurcation LAD - 100% mid occlusion after takeoff of first septal. Circumflex - retrograde takeoff, 95% ostial lesion with disease extending into mid segment across takeoff of OM1, OM 2. Medium caliber OM 2 with 50% proximal disease. RCA - large caliber, dominant, heavily calcified, subtotal earlymid RCA occlusion, 100% latemid RCA occlusion. RV branch fills via right to right collaterals. CARBONE to LADwidely patent. Mid to distal LAD after anastomosis small vessel with moderate diffuse disease. Gives off brisk epicardial collaterals to right PLB which retrofills into distal RCA. SVG to circumflexoccluded at the ostium SVG to PDAdiffuse 90% disease involving total length of vein graft with ТАТЬЯНА I-II flow Principal Diagnosis NSTEMI Severe CAD Discharge Exam Constitutional well developed, well nourished and + obese; no acute distress and no altered mental status ENMT external ear and nose normal, oropharynx normal Respiratory normal respiratory effort, lungs clear to auscultation Cardiovascular Rate/Rhythm: regular rate and regular rhythm Heart Sounds: normal S1 and normal S2; no murmur Vessels: posterior tibial pulses present and dorsalis pedis pulses present; no JVD Extremities: no edema Gastrointestinal (Abdomen) normal bowel sounds, soft, nontender, no hepatosplenomegaly Skin no rashes, warm and dry Psychiatric A+Ox3, euthymic affect Discharge Data Allergies Allergy/AdvReac Type Severity Reaction Status Date / Time No Known Allergies Allergy Verified 06/06/20 03:13 Consultations [facility]iology Hospital Course (1) NSTEMI (non-ST elevated myocardial infarction): Patient presented with chest pain at rest. Initial troponin was negative. Symptoms abated with nitroglycerin. He was initiated on heparin infusion for 48 hours, nitrates, and all other prior cardiac medications were continued. He was admitted to the telemetry unit where he remained hemodynamically stable throughout his stay. Peak troponin was 2.8. He never had recurrent cardiopulmonary symptoms. Echocardiogram was deferred as he had just had one on 05/21/20. This showed EF of 60-65% with distal lateral hypokinesis. Ranexa 500mg twice daily was added to his cardiac medication regimen. He was seen by Dr Abdoul Mcarthur, his primary exhaust and muffler repairer at [facility]. The patient also had a previously scheduled telehealth visit with Dr Norris Lucas at the [facility] on the AM of 06/07/20. After much discussion the patient agreed to transfer to [facility] for consideration of repeat CABG given his cardiac cath findings from March 2020 and his ongoing symptoms (and recurrent NSTEMI events) despite maximal medical efforts. Dr Rahat Feldman graciously accepted Mr Feliz in transfer to [facility] for ongoing care. (2) CAD (coronary artery disease): Severe [place] disease and severe disease of his bypass grafts (see HPI for cardiac catheterization information). He was continued on his home medications including ASA 81mg, Plavix 75mg, Atorvastatin 80mg, Metoprolol succinate 200mg, Lisinopril 40mg, Isosorbide 240mg and Amlodipine 5mg. Latter was ultimately increased to 10mg/day. Heparin drip was continued for his mild NSTEMI. Ranexa was added during this visit. See "NSTEMI" for more details. (3) S/P CABG (coronary artery bypass graft): November 2017 - 3-vessel at [facility]. CARBONE-LAD, SVG-circumflex, SVG-PDA. See HPI section of his d/c summary for cardiac cath details from 03/2020 at [facility]. (4) Hypercholesterolemia: Continue atorvastatin 80mg po daily. Most recent LDL -- 48 on 03/18/2020. (5) Hypertension: Blood pressures were mildly elevated while hospitalized. Therefore his amlodipine was increased to 10mg daily. (6) Prediabetes: HbA1C 6.1%. 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 Continue AHA/DM diet at [facility]. (7) Osteoarthritis: (8) Obesity: BMI 37 Total Time Total Time Spent Total Time Spent (In Minutes): 60 Total Time Includes: Examination of the Patient, Discharge Planning, Medication Reconciliation and Communication With Other Providers Discharge Plan Discharge Items Patient Disposition: Transfer Acute Care Hospital Reason For Visit: CHEST PAIN, ELEVATED TROPONIN Discharge Diagnosis: 1. NSTEMI 2. Severe coronary artery disease 3. Need for repeat CABG Activity: As commented below Activity Comment: out of bed to chair/bathroom Non-emergency contact: Primary Care Provider and Drum Sprayer Call non-emergency contact if: you have any medication questions, your symptoms worsen, your pain is not controlled and you have a fever Follow-up/Referrals: Abdoul Mcarthur MD [Physician] - (f/u with Dr Mcarthur after discharge from [facility] ) Yanira Martell MD [Primary Care Provider] - (f/u with Dr Martell after discharge from [facility] ) Diet: Heart Healthy Addtl Attending Provider Instructions: You were admitted to the hospital for chest pain. Blood work showed evidence of a mild heart attack. You were treated with IV heparin, your usual heart medications, and a new medication called "ranexa" was added. Your chest pain has not recurred. [facility]iology saw you in consult. Given that this is your 3rd heart event since March 2020 - despite maximal medical efforts - it was felt that your best treatment option was transfer to [facility] for consideration of repeat open-heart surgery/coronary bypass ("CABG"). You had a virtual visit with Dr Norris Lucas with [facility] Cardiology on the AM of 06/07/20 who also recommended transfer for consideration of repeat open heart surgery. You have remained stable during your stay at [facility]. Labs have also remained stable. Pending Studies at Discharge: No Stand-Alone Forms: My [facility] Skilled Items Patient informed of condition?: Yes DNR: No Discharge Level of Care: Other Communicable Disease: No Discharge Prognosis: Stable Lines: Peripheral IV Urinary Catheter: No Medications and DC Order Prescriptions: New ranolazine [Ranexa] 500 mg Tablet Extended Release 12 Hr 500 mg PO Q12 Qty: 60 RF: 2 Continued atorvastatin 80 mg tablet 80 mg PO DAILY Qty: 90 RF: 3 nitroglycerin 0.4 mg tablet, sublingual 0.4 mg SL Q5M PRN (Reason: chest pain) Qty: 25 RF: 4 isosorbide mononitrate 120 mg tablet extended release 24 hr 240 mg PO DAILY Qty: 180 RF: 3 PreserVision AREDS [id number] myhl-sz-[id number] capsule 1 cap PO BID RF: 0 aspirin 81 mg tablet,chewable 1 tab PO DAILY RF: 0 cholecalciferol (vitamin D3) 50 mcg (2,000 unit) capsule 50 mcg PO DAILY RF: 0 clopidogrel 75 mg Tablet 75 mg PO QAM Qty: 90 RF: 3 lisinopril [Zestril] 40 mg Tablet 40 mg PO QAM Qty: 30 RF: 0 metoprolol succinate 200 mg tablet extended release 24 hr 200 mg PO DAILY Qty: 30 RF: 0 lorazepam 0.5 mg Tablet 0.5 mg PO BID PRN (Reason: anxiety) Qty: 10 RF: 0 Changed amlodipine [Norvasc] 5 mg Tablet 10 mg PO QAM Qty: 30 RF: 0 Discharge Orders: Discharge Order (Routine); Ordered 06/07/20 Ordered By: Macario Kaufman/Other Patient Handouts: Prediabetes, Eating Heart-Healthy Foods, A1C Admission Data Admit Date/Time: 06/06/20 13:58 Attending Provider: Macario Younger Admit Provider: Adelina Metcalf Primary Care Provider: Yanira Martell Other Providers: Adelina Metcalf ; Abdoul Mcarthur Other Interventions: Discharge Summary Assessment (RN) Last Done: 06/07/20 18:40 Coding Level of Care Code D/C Day Management >30 mins Diagnoses NSTEMI (non-ST elevated myocardial infarction) I21.4 CAD (coronary artery disease) I25.700 Associated angina: with unstable angina Coronary Disease-Associated Artery/Lesion type: bypass graft [place] vs. transplanted heart: [place] heart S/P CABG (coronary artery bypass graft) Z95.1 Hypercholesterolemia E78.00 Hypertension I10 Hypertension type: essential hypertension Prediabetes R73.03 Osteoarthritis M19.90 Obesity E66.9
[2020-06-07] MEDS: LORazepam 0.5 MG TAB PO PRN (22:04)
[2020-06-08] MEDS: HEPARIN SODIUM/DEXTROSE 25,000 UNITS/500 ML BAG IV SCH (03:15)
[2020-06-08 05:56] LABS: Basophils # (auto) 0.03 K/uL (0-0.2); Basophils % (auto) 0.4 %; Eosinophils # (auto) 0.18 K/uL (0-0.5); Eosinophils % (auto) 2.4 %; Immature Granulocytes # (auto) 0.01 K/uL (0.00-0.02); Immature Granulocytes % (auto) 0.1 %; Lymphocytes # (auto) 2.43 K/uL (1.2-3.4); Lymphocytes % (auto) 32.8 %; Mean Corpuscular Hemoglobin 30.6 pg (25-34); Mean Corpuscular Hgb Conc 33.3 g/dL (32-36); Mean Corpuscular Volume 91.7 fL (80-100); Mean Platelet Volume 9.7 fL (7.4-10.4); Monocytes # (auto) 1.09 K/uL (0.11-0.59); Monocytes % (auto) 14.7 %; Neutrophils # (auto) 3.66 K/uL (1.4-6.5); Neutrophils % (auto) 49.6 %; Platelet Count 159 K/uL (130-400); RDW Coefficient of Variation 14.5 % (11.5-14.5); RDW Standard Deviation 48.6 fL (36.4-46.3); Red Blood Count 4.58 M/uL (4.7-6.1)
[2020-06-08 06:18] LABS: Partial Thromboplastin Ratio 1.9
[2020-06-08 06:24] LABS: Calcium 8.9 mg/dl (8.5-10.1); Creatinine Clr Calc Pharmacy 95.1 ml/min; Est GFR (African American) 96.8; Est GFR (Non-African American) 83.6; Potassium 3.8 mmol/L (3.5-5.1)
[2020-06-08 06:30] LABS: Partial Thromboplastin Time 52.3 Seconds (21.0-31.0)
[2020-06-08] MEDS: ATORVASTATIN 40 MG TAB PO SCH (07:53)
[2020-06-08] MEDS: ISOSORBIDE MONO EXTENDED REL 60 MG TABCR PO SCH (07:53)
[2020-06-08] MEDS: ASPIRIN 81 MG ECTAB PO SCH (07:53)
[2020-06-08] MEDS: CLOPIDOGREL BISULFATE 75 MG TAB PO SCH (07:53)
[2020-06-08] MEDS: METOPROLOL SUCC 50MG EXT REL TAB PO SCH (07:53)
[2020-06-08] MEDS: amLODIPine BESYLATE 5 MG TAB PO SCH (07:53)
[2020-06-08] MEDS: RANOLAZINE 500 MG ER TAB PO SCH ×2 (07:53→21:15)
[2020-06-08] MEDS: lisinopril 40 MG TAB PO SCH (07:53)
[2020-06-08] MEDS: LORazepam 0.5 MG TAB PO PRN (21:15)
--- NOTE | 2020-06-08 22:28 | Hospitalist Progress Note ---
Date of Service June 08, 2020 Assessment & Plan (1) NSTEMI (non-ST elevated myocardial infarction): Peak trop 2.8. Remains on heparin drip along with usual asa, plavix, metoprolol, lisinopril, amlodipine, imdur, atorvastatin, and newly-instituted ranexa. See d/c summary for details regarding transfer to [facility] for consideration of re-do CABG. Patient with severe, [place] CAD and severe CAD of his bypass grafts. original 3-vessel CABG performed at [place] in 2018. No ongoing ischemic symptoms. Hemodynamically stable. Await transfer to [facility]. Leave heparin drip in place. pre-discharge COVID test completed and was NEGATIVE. (2) CAD (coronary artery disease): see above in "NSTEMI" appreciate [facility] cardiology assistance (3) Hypertension: BPs improved with titration of amlodipine to 10mg daily (4) Prediabetes: stable (5) Obesity: BMI 37 (6) Hypercholesterolemia: statin recent LDL at goal (7) S/P CABG (coronary artery bypass graft): 3-vessel - 2018 at [facility] updated awaiting transfer to [facility] - hopefully tonight Admission and Anticipated Discharge Date Admission Date: June 06, 2020 Subjective no events overnight. tele wnl. feeling good. just anxious about the "next steps" and wanting to get to the [facility]. at bedside. denies cp, dyspnea, dizziness, exertional symptoms. Review of Systems Constitutional: no fever, no chills, no fatigue and no anorexia Respiratory: no cough and no dyspnea Cardiovascular: no chest pain, no orthopnea and no edema Gastrointestinal: no abdominal pain, no nausea and no vomiting Physical Exam Constitutional: well developed, well nourished and + obese; no acute distress and no altered mental status ENMT: external ear and nose normal, oropharynx normal Respiratory: normal respiratory effort, lungs clear to auscultation Cardiovascular: Rate/Rhythm: regular rate and regular rhythm Heart Sounds: normal S1 and normal S2; no murmur Vessels: posterior tibial pulses present and dorsalis pedis pulses present; no JVD Extremities: no edema Gastrointestinal (Abdomen): normal bowel sounds, soft, nontender, no hepatosplenomegaly Skin: no rashes, warm and dry Psychiatric: Orientation: alert and oriented x 3 Results & Data Results & Data ([facility]) Vital Signs (Past 12 Hours) Vital Signs Temp Pulse Pulse Pulse Resp BP BP 06/08/20 19:28 143/77 H 06/08/20 19:08 35.6 C L 69 16 177/95 H 06/08/20 15:46 62 06/08/20 15:06 36.4 C L 61 16 130/76 06/08/20 11:19 36.2 C L 68 18 114/73 Pulse Ox 06/08/20 19:28 06/08/20 19:08 96 06/08/20 15:46 06/08/20 15:06 98 06/08/20 11:19 94 Laboratory Results Laboratory Results - last 24 hr 06/08/20 06/08/20 06/08/20 05:32 05:32 05:32 WBC 7.40 RBC 4.58 L Hgb 14.0 Hct 42.0 MCV 91.7 MCH 30.6 MCHC 33.3 RDW Std Deviation 48.6 H RDW Coeff of Meghan 14.5 Plt Count 159 MPV 9.7 Immature Gran % (Auto) 0.1 Neut % (Auto) 49.6 Lymph % (Auto) 32.8 [place] % (Auto) 14.7 Eos % (Auto) 2.4 Baso % (Auto) 0.4 Neut # (Auto) 3.66 Lymph # (Auto) 2.43 [place] # (Auto) 1.09 H Eos # (Auto) 0.18 Baso # (Auto) 0.03 Immature Gran # (Auto) 0.01 APTT 52.3 H* PTT Ratio 1.9 Sodium 141 Potassium 3.8 Chloride 111 H Carbon Dioxide 26 Anion Gap 4.0 BUN 13 Creatinine 0.94 Est Cr Clr Drug Dosing 95.1 Est GFR ( Amer) 96.8 Est GFR (Non-Af Amer) 83.6 BUN/Creatinine Ratio 14.0 Glucose 97 Calcium 8.9 COVID-19 Eval Order SARS-CoV-2, RNA, NAAT 06/08/20 06/08/20 Unknown Unknown WBC RBC Hgb Hct MCV MCH MCHC RDW Std Deviation RDW Coeff of Meghan Plt Count MPV Immature Gran % (Auto) Neut % (Auto) Lymph % (Auto) [place] % (Auto) Eos % (Auto) Baso % (Auto) Neut # (Auto) Lymph # (Auto) [place] # (Auto) Eos # (Auto) Baso # (Auto) Immature Gran # (Auto) APTT PTT Ratio Sodium Potassium Chloride Carbon Dioxide Anion Gap BUN Creatinine Est Cr Clr Drug Dosing Est GFR ( Amer) Est GFR (Non-Af Amer) BUN/Creatinine Ratio Glucose Calcium COVID-19 Eval [facility] SARS-CoV-2, RNA, NAAT NEGATIVE PG Care Time/CCT Total # of Minutes Spent Total Time Spent with Patient: Total time spent is greater than 50% in coor dination of care (as documented) at patient's floor/unit and/or counseling patient: Coding Level of Care Code 90678 Subseq Hosp Care Lvl 1 Diagnoses NSTEMI (non-ST elevated myocardial infarction) I21.4 CAD (coronary artery disease) I25.700 Associated angina: with unstable angina Coronary Disease-Associated Artery/Lesion type: bypass graft [place] vs. transplanted heart: [place] heart Hypertension I10 Hypertension type: essential hypertension Prediabetes R73.03 Obesity E66.01; Z68.37 Obesity type: unspecified obesity type Obesity classification: adult class 2 (BMI 35 - 39.9) Serious obesity comorbidity presence: with serious comorbidity Body mass index: BMI 37.0-37.9 Hypercholesterolemia E78.00 S/P CABG (coronary artery bypass graft) Z95.1 (1) CAD (coronary artery disease) Associated angina: with unstable angina Coronary Disease-Associated Artery/Lesion type: bypass graft [place] vs. transplanted heart: [place] heart Qualified Code(s): I25.700 - Atherosclerosis of coronary artery bypass graft(s), unspecified, with unstable angina pectoris (2) Hypertension Hypertension type: essential hypertension Qualified Code(s): I10 - Essential (primary) hypertension (3) Obesity Obesity type: unspecified obesity type Obesity classification: adult class 2 (BMI 35 - 39.9) Serious obesity comorbidity presence: with serious comorbidity Body mass index: BMI 37.0-37.9 Qualified Code(s): E66.01 - Morbid (severe) obesity due to excess calories; Z68.37 - Body mass index [BMI] 37.0-37.9, adult
[2020-06-09] MEDS: HEPARIN SODIUM/DEXTROSE 25,000 UNITS/500 ML BAG IV SCH (01:22)
[2020-06-09] MEDS: RANOLAZINE 500 MG ER TAB PO SCH (07:39)
[2020-06-09] MEDS: METOPROLOL SUCC 50MG EXT REL TAB PO SCH (07:39)
[2020-06-09] MEDS: CLOPIDOGREL BISULFATE 75 MG TAB PO SCH (07:40)
[2020-06-09] MEDS: ASPIRIN 81 MG ECTAB PO SCH (07:40)
[2020-06-09] MEDS: ISOSORBIDE MONO EXTENDED REL 60 MG TABCR PO SCH (07:40)
[2020-06-09] MEDS: amLODIPine BESYLATE 5 MG TAB PO SCH (07:40)
[2020-06-09] MEDS: ATORVASTATIN 40 MG TAB PO SCH (07:40)
[2020-06-09] MEDS: lisinopril 40 MG TAB PO SCH (07:40)
[2020-06-09 07:42] VITALS: BP 155/82
[2020-06-09 08:09] VITALS: TEMP 97.7; O2SAT 95
[2020-06-09 09:18] VITALS: PULSE 72
[2020-06-09] MEDS: LORazepam 0.5 MG TAB PO PRN (10:17)
--- NOTE | 2020-06-09 10:59 | Communication Note ---
Date of Service: June 09, 2020 At ~1030 this am transport arrived to take Mr Feliz to the [facility]. Tele stable overnight; NSR. No cp, dyspnea, abd pain or other complaints. Feeling good. VSS, BPs mildly high gen - NAD heart - RRR, s1 s2, no murmur lungs - CTA b/l abd - soft NT ext - no edema COVID test neg heparin infusion remains A/P: NSTEMI severe CAD [place] [facility] [place] [facility] today; to be considered for repeat CABG as 2 vein grafts are occluded. Stable for discharge. Macario Younger MD
== END 2020-06-09 11:10 | disposition short-term general hospital (02) | DRG 282 ==
LOC: 2N 02:17 → ED 02:17 → SUATTDRO 06:20 → 2N 06:31